=== PATIENT | male | born 1970 | race Caucasian/White ===

== ENCOUNTER → 2017-08-23 | Outpatient (CLI) | payer OTHER | LOC: M RAD 07:47 | DX: K31.84 Gastroparesis (principal) ==

== ENCOUNTER 2017-09-11 09:27 | Day surgery (SDC) | payer OTHER ==
[2017-09-11] MEDS ORDERED: LIDOCAINE 2% INJ 100 MG/5 ML SDV (FOR ANES.) As Ordered (09:30)
[2017-09-11] MEDS ORDERED: PROPOFOL 200 MG/20 ML VIAL As Ordered (09:30)
[2017-09-11] MEDS: NS 1,000 ML IV (09:45)
[2017-09-11] MEDS ORDERED: fentaNYL 100 MCG/2 ML INJECTION (J3010) As Ordered (09:58)
[2017-09-11 10:02] LABS: BEDSIDE GLUCOSE 225 MG/DL (70-105)
[2017-09-11] MEDS ORDERED: MIDAZOLAM INJ 2 MG/2 ML VIAL (J2250) As Ordered (10:13)
== END 2017-09-11 11:15 | disposition home or self-care (01) ==
LOC: M OPP 09:27
DX: K57.30 Diverticulosis of large intestine without perforation or abscess without bleeding (principal); K64.0 First degree hemorrhoids; R19.7 Diarrhea, unspecified; K22.8 Other specified diseases of esophagus; K31.89 Other diseases of stomach and duodenum; R11.2 Nausea with vomiting, unspecified; I10 Essential (primary) hypertension; E78.00 Pure hypercholesterolemia, unspecified; E11.9 Type 2 diabetes mellitus without complications; K31.84 Gastroparesis; Z79.82 Long term (current) use of aspirin; Z79.4 Long term (current) use of insulin; Z79.899 Other long term (current) drug therapy
CPT/HCPCS: 45380

== ENCOUNTER 2018-01-15 07:03 | Day surgery (SDC) | payer OTHER ==
[~2018-01-15 07:03] MED LIST: ACETAMINOPHEN 325 MG TAB PO; PHENYLEPHRINE HCL 10 % OPHTH. SOL 5ML OD
[2018-01-15] MEDS: TROPICAMIDE 1% OPHTH SOLN 2ML OD (07:27)
[2018-01-15] MEDS: PHENYLEPHRINE 2.5% OPHTH SOL 2ML OD (07:27)
[2018-01-15] MEDS: CYCLOPENTOLATE 2% OPHTH SOLN 2ML BTL OD (07:27)
[2018-01-15] MEDS: OFLOXACIN 0.3 % (OCUFLOX) OPTH SOL 5ML OD (07:27)
[2018-01-15] MEDS: LIDOCAINE 3.5 % 1ML OPHTH TOPICAL GEL OU (07:28)
[2018-01-15 07:29] LABS: BEDSIDE GLUCOSE 157 MG/DL (70-105)
[2018-01-15] MEDS ORDERED: fentaNYL 100 MCG/2 ML INJECTION (J3010) As Ordered (07:54)
[2018-01-15] MEDS ORDERED: MIDAZOLAM INJ 2 MG/2 ML VIAL (J2250) As Ordered (07:54)
[2018-01-15] MEDS: POVIDONE-IODINE 5% OPHTH PREP SOL 30ML As Ordered (08:18)
[2018-01-15] MEDS: LIDOCAINE 1% SDV 5 ML VIAL As Ordered (08:18)
[2018-01-15] MEDS: HEALON DUET (HEALON 10MG/ML 0.55ML & HEALON ENDOCOAT 30MG/ML 0.85ML) As Ordered (08:20)
[2018-01-15] MEDS: MOXIFLOXACIN IN BSS 0.25MG/0.25ML INTRACAMERAL INJ (OR EYE ONLY)(J2280) As Ordered (08:20)
[2018-01-15] MEDS: TRIAMCINOLONE PRES FR 40 MG/ML 1ML(TRIESENCE)(OR EYE ONLY)(J3300 PER 1MG) As Ordered (08:20)
[2018-01-15] MEDS: BSS with VANC/TOB/EPI for EYE CASES IR (08:21)
[2018-01-15] MEDS ORDERED: LR 1,000 ML IV (08:45)
[2018-01-15] MEDS ORDERED: fentaNYL 100 MCG/2 ML INJECTION (J3010) IV (08:45)
[2018-01-15] MEDS ORDERED: TRIMETHOBENZAMIDE 300 MG CAP PO (08:45)
[2018-01-15] MEDS ORDERED: ONDANSETRON 4MG/2ML VIAL (J2405) IV (08:45)
[2018-01-15] MEDS: AcetaZOLAMIDE 500 MG ER CAP PO (08:56)
== END 2018-01-15 09:12 | disposition home or self-care (01) ==
LOC: M SDC 07:03
DX: H25.9 Unspecified age-related cataract (principal); E10.9 Type 1 diabetes mellitus without complications; Z79.4 Long term (current) use of insulin; Z79.899 Other long term (current) drug therapy; K21.9 Gastro-esophageal reflux disease without esophagitis; Z87.891 Personal history of nicotine dependence
CPT/HCPCS: 66984

== ENCOUNTER → 2018-02-20 | Outpatient (REF) | payer OTHER ==
[2018-02-20 12:45] LABS: TOTAL 25(OH) VITAMIN D 11.7 NG/ML (30.0-100.0)
== END ==
LOC: M LAB REF 11:57
DX: S92.345A Nondisplaced fracture of fourth metatarsal bone, left foot, initial encounter for closed fracture (principal); W18.30XA Fall on same level, unspecified, initial encounter; Y92.009 Unspecified place in unspecified non-institutional (private) residence as the place of occurrence of the external cause

== ENCOUNTER → 2018-06-23 | Outpatient (REF) | payer OTHER ==
[~2018-06-23] MED LIST changes: +/GLYB5TA PO; -ACETAMINOPHEN 325 MG TAB PO; +ADME100I SQ; +AMLO2.5T3 PO; +ASPI81TA21 PO; +ASPI81TA85 PO; +AUGM500T34 PO; +BASA100I SC; +CIPR500T89 PO; +FENO54TA2 PO; +FLAG500T PO; +FURO20TA2 PO; +GABA-843 PO; +GLUC500T PO; +IBUPPOW25 PO; +INSUHUMDS SC; +INSULANT SC; +INSULIN PEN SC; +INVO100T PO; +LISI-538 PO; +LISI1TAB25 OR; +LORTTAB2 PO; +LOSA25TA14 PO; +METO1TAB32 PO; +OMEP-221 PO; +PERCOCET OR; -PHENYLEPHRINE HCL 10 % OPHTH. SOL 5ML OD; +TYLE325T5 PO; +ZOCO20TA PO; +[UNRECOGNIZED DRUG - OTHER] PO
== END ==
LOC: M LABDRAW1 12:08
PROVIDERS: ATTEND Orthopaedic Surgery
DX: S92.345G Nondisplaced fracture of fourth metatarsal bone, left foot, subsequent encounter for fracture with delayed healing (principal); X58.XXXD Exposure to other specified factors, subsequent encounter; Y92.9 Unspecified place or not applicable

== ENCOUNTER 2018-07-14 08:20 | Day surgery (SDC) | payer OTHER ==
[~2018-07-14] VITALS: Ht 180.3 cm; Wt 127.9 kg
[~2018-07-14 08:20] MED LIST changes: +ACETAMINOPHEN 325 MG TAB PO PRN; +BSS with VANC/TOB/EPI for EYE CASES IR ONE; +CYCLOPENTOLATE 2% OPHTH SOLN 2ML BTL OS ONE; +HEALON DUET PRO(HEALON 10MG/ML 0.55ML & HEALON ENDOCOAT 30MG/ML 0.85ML) As Ordered ONE; +LIDOCAINE 1% SDV 5 ML VIAL As Ordered ONE; +LIDOCAINE 3.5 % 1ML OPHTH TOPICAL GEL OU ONE; +MOXIFLOXACIN IN BSS 0.25MG/0.25ML INTRACAMERAL INJ (OR EYE ONLY)(J2280) As Ordered ONE; +OFLOXACIN 0.3 % (OCUFLOX) OPTH SOL 5ML OS ONE; +PHENYLEPHRINE 2.5% OPHTH SOL 2ML OS ONE; +PHENYLEPHRINE HCL 10 % OPHTH. SOL 5ML OS PRN; +POVIDONE-IODINE 5% OPHTH PREP SOL 30ML As Ordered ONE; +TRIAMCINOLONE PRES FR 40 MG/ML 1ML(TRIESENCE)(OR EYE ONLY)(J3300 PER 1MG) As Ordered ONE; +TROPICAMIDE 1% OPHTH SOLN 2ML OS ONE
[2018-07-14] MEDS ORDERED: fentaNYL 100 MCG/2 ML INJECTION (J3010) As Ordered ONE (08:44)
[2018-07-14] MEDS ORDERED: MIDAZOLAM INJ 2 MG/2 ML VIAL (J2250) As Ordered ONE (08:44)
[2018-07-14] MEDS ORDERED: LIDOCAINE 2% W/EPIN INJ 20ML **PRES FREE XX ONE (09:22)
[2018-07-14] MEDS ORDERED: fentaNYL 100 MCG/2 ML INJECTION (J3010) IV PRN (09:45)
[2018-07-14] MEDS ORDERED: NORCO, ANEXSIA 5/325MG TABLET (HYDROcodone/ACETAMINOPHEN) PO PRN (09:45)
[2018-07-14] MEDS ORDERED: TRIMETHOBENZAMIDE 300 MG CAP PO PRN (09:45)
[2018-07-14] MEDS ORDERED: AcetaZOLAMIDE 500 MG ER CAP PO ONE (09:45)
[2018-07-14] MEDS ORDERED: LR 1,000 ML IV SCH (09:45)
[2018-07-14 10:00] VITALS: BP 128/67
--- NOTE | 2018-07-15 16:13 | RO ---
DATE OF PROCEDURE: 07/14/2018 PREPROCEDURE DIAGNOSIS: Cataract left eye. POSTPROCEDURE DIAGNOSIS: Cataract left eye. PROCEDURE: Phacoemulsification with intraocular lens implantation with the help of Optiwave Refractive Analysis (ORA). Intraocular lens (IOL) power used was [id number], 19.5 diopters. SURGEON: Dee Oates MD NURSING SCHEDULER: None. ANESTHESIA: Local IV standby FINDINGS: Cataract of left eye. COMPLICATIONS: None. DESCRIPTION OF PROCEDURE: The patient was brought to the operating room and laid in supine position. A lid speculum was placed, and patient was brought under the femtosecond laser. After the satisfactory placement of the patient interface, primary incision, secondary incision, and arcuate incisions with lens fragmentation was done without any complication per plan. The patients interface was then removed and lid speculum removed. Patient was placed under the microscope. The eye was prepped and draped in a sterile fashion for ophthalmic surgery. Lid speculum was placed. The secondary incision was opened, and EndoCoat was injected into the anterior chamber. The temporal clear corneal incision was then opened and capsulorrhexis removed, followed by hydrodissection. This was followed by phacoemulsification of the lens within the capsular bag. Cortical material was then aspirated, and Healon was injected into the capsular bag. Intraocular lens was then placed. Excess Healon was aspirated. Wound was hydrated. The lid speculum was removed, and patient was returned to the recovery room in stable condition. ADDENDUM: After the cortical material was cleaned up and Healon was placed in the anterior chamber and capsular bag, intraocular pressure was checked; it was noted to be adequate, following which multiple ORA calculations were taken and intraocular lens power chosen.
== END 2018-07-14 10:13 | disposition home or self-care (01) ==
LOC: M SDC 08:20
PROVIDERS: ATTEND Ophthalmology
DX: H25.9 Unspecified age-related cataract (principal); I10 Essential (primary) hypertension; E78.5 Hyperlipidemia, unspecified; E11.9 Type 2 diabetes mellitus without complications; G47.30 Sleep apnea, unspecified; K21.9 Gastro-esophageal reflux disease without esophagitis; Z79.4 Long term (current) use of insulin; Z79.899 Other long term (current) drug therapy
CPT/HCPCS: 66984; 92015; J2250; J2280; J3010; J3300; V2632

== ENCOUNTER 2019-10-25 13:34 | Inpatient (IN) | payer OTHER ==
[~2019-10-25] VITALS: Ht 180.3 cm; Wt 101.8 kg
[~2019-10-25 13:34] MED LIST changes: -/GLYB5TA PO; -ACETAMINOPHEN 325 MG TAB PO PRN; -BSS with VANC/TOB/EPI for EYE CASES IR ONE; -CYCLOPENTOLATE 2% OPHTH SOLN 2ML BTL OS ONE; +GLYB1TAB29 PO; -HEALON DUET PRO(HEALON 10MG/ML 0.55ML & HEALON ENDOCOAT 30MG/ML 0.85ML) As Ordered ONE; -LIDOCAINE 1% SDV 5 ML VIAL As Ordered ONE; -LIDOCAINE 3.5 % 1ML OPHTH TOPICAL GEL OU ONE; -MOXIFLOXACIN IN BSS 0.25MG/0.25ML INTRACAMERAL INJ (OR EYE ONLY)(J2280) As Ordered ONE; -OFLOXACIN 0.3 % (OCUFLOX) OPTH SOL 5ML OS ONE; +OXYC1TAB23 OR; -PERCOCET OR; -PHENYLEPHRINE 2.5% OPHTH SOL 2ML OS ONE; -PHENYLEPHRINE HCL 10 % OPHTH. SOL 5ML OS PRN; -POVIDONE-IODINE 5% OPHTH PREP SOL 30ML As Ordered ONE; -TRIAMCINOLONE PRES FR 40 MG/ML 1ML(TRIESENCE)(OR EYE ONLY)(J3300 PER 1MG) As Ordered ONE; -TROPICAMIDE 1% OPHTH SOLN 2ML OS ONE
[2019-10-25 15:43] VITALS: BP 145/76
[2019-10-25] MEDS ORDERED: VANC1PLA6 IV (16:12)
[2019-10-25] MEDS ORDERED: FLINCHW2 PO (16:12)
[2019-10-25] MEDS ORDERED: GABA-843 PO (16:12)
[2019-10-25] MEDS ORDERED: FISH1000 PO (16:12)
[2019-10-25] MEDS ORDERED: CLIN1INJ IV (16:12)
[2019-10-25] MEDS ORDERED: CALC250T PO (16:12)
[2019-10-25] MEDS ORDERED: ZOSY3INJ2 IV (16:12)
[2019-10-25] MEDS ORDERED: ATOR40TA75 PO (16:12)
--- NOTE | 2019-10-25 16:15 | HPEPDOC ---
[facility] Medical History & Physical Date of Admission Oct 25, 2019 Date of Service: Oct 25, 2019 Attending Physician: Sade Lazaro MD History and Physical CHIEF COMPLAINT: Lower extremity swelling HISTORY OF PRESENT ILLNESS: Patient is a 49 y/o M with PMH of DM type II, HTN, HLD who was transferred to [facility] from [facility] for right lower ext cellulitis, r/o DVT and JESSICA on CKD Stage III-IV. He stepped on two nails 10/22/19, one on his right foot and another on the left foot. He tried to clean it out at home without much im provement. At home patient states to have had a fever over 100 F, chills, pain was 9/10 on pain scale. Patient admits that the nail in the right foot went in almost 1/2 inch. Swelling and redness of right foot increased and the area of his pain changed from only being localized from the bottom of the right foot now moving/shooting up to the right groin. Pain increased to constant and at times was worse around his right knee. Denies nausea, vomiting, chest pain, shortness of breath, lightheadedness or dizziness, decreased appetite. Due to worsening symptoms, the patient to the emergency room at [facility] for evaluation. In ER, patients VS were stable. WBC 16.2, Cr 3.5. He was noted to have right foot swelling with at times, severe tenderness of palpation of the right calf and left knee. The transferring facilitys [facility] did not have ultrasound capability to r/o DVT. Also with worsening renal function, concern was perhaps needing nephrology consultation. He was given dose of Clindamycin and Zosyn vinny ng with some IVFs. Patient was given tetanus shot today also. He was transferred here for further treatment of right foot cellulitis, concern for acute on chronic kidney injury. Upon evaluation here, patent's swelling as localized only to right foot, more medial involving the 1st three digits, dorsum. There was a well healed, scabbed wound on the bottom of the right foot, nonsuppurative. He was tender to touch on this area of the foot and up to the right groin; however, there was no increased swelling, redness or streaking noted on the right leg. There was also no edema. He was comfortable and VS were stable. All labs and paperwork were reviewed upon admission. ROS: Negative except for what is mentioned above. PAST MEDICAL HISTORY: 1. DM type II, states it has resolved after gastric bypass surgery 2. HTN 3. HLD 4. Peripheral neuropathy 5. GERD hx 6. Hx of collapsed lung PAST SURGICAL HISTORY: 1. Laproscopic appendectomy 06/2012 2. cataract surgery 3. Gastric bypass surgery 4. Colostomy placement and reversal FAMILY HISTORY: Father: blood clots in legs. Alive Mother: DM type II, morbid obesity SOCIAL HISTORY: prior smoker for 25 years, 3 PPD, quit 4 years ago. Social alcohol use, denies illicit drug use. [place] in the local area. Full Code. PCP- Patricia Andino, no new PCP since she's left. Lives with . [employer]- Dr. Harris ALLERGIES: Please see below. HOME MEDICATIONS: Please see below. PHYSICAL EXAMINATION: CONSTITUTIONAL: No acute distress, resting comfortably, AAO x 3 EYES: PERRLA, EOM intact HENT, MOUTH: Normocephalic, atraumatic, moist mucous membranes, NECK: SUPPLE, no JVD, no lymphadenopathy, no carotid bruit CV: Regular rate and rhythm, S1S2 normal, no murmurs/rubs/gallops RESPIRATORY: Clear to auscultation bilaterally, no rales/rhonchi/wheezes GI: BS positive in 4 quadrants, soft, nontender, nondistended, no rebound or guarding, no organomegaly : Deferred MUSCULOSKELETAL: Normal ROM. No cyanosis, clubbing, swelling, joint deformity. INTEGUMENTARY: Swelling as localized only to right foot, erythema +: more medial involving the 1st three digits, dorsum. Well healed, scabbed wound on the bottom of the right foot, nonsuppurative. Tender to touch on this area of the foot and up to the right groin; however, there was no increased swelling, redness or streaking noted on the right leg. There was also no edema of leg above the foot. Well healed scabbed area on bottom of left foot where patient had stepped on other nail. NEUROLOGIC: Cranial Nerves II-XII are intact, no focal deficits PSYCHIATRIC: Mood and affect are normal LABORATORY DATA: Please see below IMAGING: F/u US lower ext ASSESSMENT: 49 y/o M with PMH of HTN, DM type II, HLD, morbid obesity admitted for further treatment of right foot cellulitis , acute on chronic kidney injury? (baseline Cr unknown). PLAN: 1. Right foot cellulitis s/p stepping on nail 10/22/19 - WBC 16.2, afebrile -Tetanus given today in ER -States right leg pain started after cellulitis, tender to touch. F/u ultrasound of RLE to r/o DVT -Starting on clindamycin IV, probiotic, tylenol PRN -PT/OT 2. 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 -Cr 3.5, baseline unknown at this time. -Requesting nephrology notes from Dr. Harris, district representative. -C/w IVFs at 100 cc/hr, avoid nephrotoxic meds. -F/u AM labs 3. Peripheral neuropathy -C/w gabapentin. 4. HLD -C/w statin 5. Hx of DM type II -States that since gastric bypass, this has not been a problem -Not on home medications. -F/u HbA1c, lipid panel -BS 153 on labs -ISS, AC/HS finger sticks 6. GERD. -not on home tx 7. DVT px. -Enoxaparin DISPOSITION: Admitted under inpatient status for treatment above. Plan is discharge home when medically improved. Home Medications Scheduled Atorvastatin Calcium (Atorvastatin Calcium) 40 Mg Tablet, 40 MG PO QHS Calcium Citrate (Calcium Citrate) 250 Mg Tablet, 500 MG PO QHS Clindamycin in 0.9 % Sod Chlor (Clindamycin 900 mg/50 ml-Ns) 900 Mg/50 Ml Piggy back, 900 MG IV ONCE RECEIVED AT [facility] Gabapentin (Gabapentin) 300 Mg Capsule, 600 MG PO QHS Multivitamin (Flintstones) 1 Each Tab.chew, 2 CHEW PO QHS [place]-3 Fatty Acids/Fish Oil (Fish Oil 1,000 mg Capsule) 1 Each Capsule, 2,000 MG PO QHS Piperacillin Sodium/Tazobactam (Zosyn 3.375 Gram Vial) 3.375 Gm Vial, 3.375 MG IV ONCE RECEIVED AT [facility] Vancomycin/0.9 % Sod Chloride (Vanco 1 Gram/250 ml-0.9% NaCl) 1 Gm/250 Ml Plast..bag, 1 GM IV ONCE RECEIVED AT [facility] Allergies Coded Allergies: No Known Allergies (Unverified , 07/07/18) A-FIB/CHADSVASC A-FIB History Current/History of A-Fib/PAF?: No Current PO Anticoag Therapy: No Age/Risk Factor Scoring CHADSVASC: CHADSVASC Response (Comments) Value Age Risk Factor Age < 65 years old 0 Hx of CHF No 0 Hx of HTN Yes 1 Hx of Stroke/TIA/or VTE No 0 Hx of Diabetes Yes 1 Hx of Vascular Disease No 0 Total 2 Treatment Treatment ordered: Other Other anticoagulant ordered: enoxaparin Sade Lazaro MD Oct 25, 2019 16:15
[2019-10-25] MEDS ORDERED: GLUCAGON INJ 1MG VIAL SC PRN (17:45)
[2019-10-25] MEDS ORDERED: GLUCOSE 4GM CHEW TABLET PO PRN (17:45)
[2019-10-25] MEDS ORDERED: DEXTROSE 50% 50 ML SYRINGE IV PRN (17:45)
[2019-10-25] MEDS: NS 1,000 ML IV SCH (18:06)
[2019-10-25] MEDS: LACTOBACILLUS ACIDOPHILUS CAP (BACID) PO SCH (18:10)
[2019-10-25] MEDS: CLINDAMYCIN 600 MG in IV 1 EA IV SCH (18:10)
--- NOTE | 2019-10-25 18:18 | REPVR ---
PROCEDURE INFORMATION: Exam: US Duplex Right Lower Extremity Veins, Limited Exam date and time: 10/25/2019 6:02 PM Age: 49 years old Clinical indication: Pain; Leg, lower and foot; Right; Additional info: Right foot swelling and left leg pain R/O dvt TECHNIQUE: Imaging protocol: Real-time Duplex ultrasound of the Right Lower Extremity with 2-D diehl scale, color Doppler flow and spectral waveform analysis with image documentation. Limited exam was focused on the right lower extremity veins. COMPARISON: No relevant prior studies available. FINDINGS: Right deep veins: Unremarkable. The common femoral, femoral, proximal profunda femoral and popliteal veins are patent without thrombus. Normal Doppler waveforms. Normal compressibility and/or augmentation response. Right superficial veins: Unremarkable. Saphenofemoral junction is patent without thrombus. Soft tissues: Unremarkable. IMPRESSION: No sonographic evidence of deep vein thrombosis. Electronically signed by: Luz Maria Beal On 10/25/2019 18:18:04 PM
[2019-10-25] MEDS: ATORVASTATIN 20 MG TAB PO SCH (20:58)
[2019-10-25] MEDS: ACETAMINOPHEN TAB 650MG DOSE (2X325MG) PO PRN (20:59)
[2019-10-25] MEDS: GABAPENTIN 300 MG CAP PO SCH (20:59)
[2019-10-25] MEDS: HumaLOG INSULIN (NovoLOG) PER UNIT SC SCH (21:00)
[2019-10-25 22:00] VITALS: BP 138/66
[2019-10-26] MEDS: CLINDAMYCIN 600 MG in IV 1 EA IV SCH ×4 (00:46→18:19)
[2019-10-26 06:00] VITALS: BP 153/79
[2019-10-26] MEDS: NS 1,000 ML IV SCH ×2 (06:03→12:26)
[2019-10-26 07:03] LABS: HEMATOCRIT 30.9 % (42.0-52.0); HEMOGLOBIN 9.7 g/dl (13.5-17.5); MEAN CORPUSCULAR HEMOGLOBIN 28.4 pg (27.0-33.0); MEAN CORPUSCULAR HGB CONC 31.4 g/dl (32.0-36.5); MEAN CORPUSCULAR VOLUME 90.4 fl (80.0-96.0); PLATELET COUNT, AUTOMATED 253 10^3/uL (150-450); RED BLOOD COUNT 3.42 10^6/uL (4.30-6.10); WHITE BLOOD COUNT 13.9 10^3/uL (4.0-10.0)
[2019-10-26 07:16] LABS: HEMOGLOBIN A1c 5.2 %
[2019-10-26 07:23] LABS: ALBUMIN 1.7 GM/DL (3.2-5.2); BILIRUBIN,TOTAL 0.4 MG/DL (0.2-1.0); CHOLESTEROL RISK RATIO 3.825 (<5); CREATININE FOR GFR 3.38 MG/DL (0.70-1.30); GLOMERULAR FILTRATION RATE 20.8 (>60); POTASSIUM SERUM 4.3 MEQ/L (3.5-5.1); TOTAL PROTEIN 5.5 GM/DL (6.4-8.2)
[2019-10-26] MEDS: HumaLOG INSULIN (NovoLOG) PER UNIT SC SCH ×4 (07:30→21:00)
[2019-10-26] MEDS: LACTOBACILLUS ACIDOPHILUS CAP (BACID) PO SCH ×2 (08:11→18:19)
[2019-10-26] MEDS: ENOXAPARIN 40MG/0.4ML SYRINGE (J1650 PER 10MG) SC SCH (08:12)
[2019-10-26 14:00] VITALS: BP 151/73
[2019-10-26] MEDS: GABAPENTIN 300 MG CAP PO SCH (21:25)
[2019-10-26] MEDS: ATORVASTATIN 20 MG TAB PO SCH (21:25)
[2019-10-26] MEDS: ACETAMINOPHEN TAB 650MG DOSE (2X325MG) PO PRN (21:25)
[2019-10-26 22:00] VITALS: BP 140/65
[2019-10-27] MEDS: NS 1,000 ML IV SCH ×2 (00:17→08:16)
[2019-10-27] MEDS: CLINDAMYCIN 600 MG in IV 1 EA IV SCH ×2 (00:17→06:12)
[2019-10-27 06:00] VITALS: BP 136/73
[2019-10-27 06:09] LABS: BASO # 0.1 10^3/uL (0.0-0.2); BASO % 0.5 % (0.0-1.0); EOS # 0.1 10^3/uL (0.0-0.5); EOS % 0.6 % (0.0-3.0); HEMATOCRIT 26.5 % (42.0-52.0); HEMOGLOBIN 8.3 g/dl (13.5-17.5); LYMPH # 1.6 10^3/uL (1.5-5.0); LYMPH % 12.8 % (24.0-44.0); MEAN CORPUSCULAR HEMOGLOBIN 28.3 pg (27.0-33.0); MEAN CORPUSCULAR HGB CONC 31.3 g/dl (32.0-36.5); MEAN CORPUSCULAR VOLUME 90.4 fl (80.0-96.0); MONO # 1.3 10^3/uL (0.0-0.8); MONO % 10.5 % (0.0-5.0); NEUTROPHILS # 9.6 10^3/uL (1.5-8.5); NEUTROPHILS % 75.2 % (36.0-66.0); PLATELET COUNT, AUTOMATED 265 10^3/uL (150-450); RED BLOOD COUNT 2.93 10^6/uL (4.30-6.10); WHITE BLOOD COUNT 12.7 10^3/uL (4.0-10.0)
[2019-10-27 06:37] LABS: BLOOD UREA NITROGEN 37 MG/DL (7-18); CALCIUM LEVEL 7.9 MG/DL (8.5-10.1); CARBON DIOXIDE LEVEL 20 MEQ/L (21-32); CHLORIDE LEVEL 111 MEQ/L (98-107); CREATININE FOR GFR 3.21 MG/DL (0.70-1.30); GLOMERULAR FILTRATION RATE 22.1 (>60); GLUCOSE, FASTING 106 MG/DL (70-100); POTASSIUM SERUM 4.1 MEQ/L (3.5-5.1); SODIUM LEVEL 141 MEQ/L (136-145)
--- NOTE | 2019-10-27 06:41 | IPN ---
DATE: 10/26/2019 He is a 49-year-old male with a history of hypertension, diabetes type 2, hypercholesterolemia and chronic kidney disease who was transferred from [facility] for further treatment of right foot cellulitis, acute on chronic kidney injury. 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 Goetz, and it says that his creatinine baseline is 2.5-2.7. On laboratory studies here, white count was up slightly at 13.9, hemoglobin 9.7, hematocrit 30.9, sodium 143, potassium 4.3, chloride 112, CO2 22, anion gap 9, BUN 41, creatinine 3.3. Hemoglobin A1c 5.2. Triglycerides were 136, total cholesterol 153, LDL 86. He had a vascular ultrasound which showed no evidence of deep vein thrombosis on his right leg. He is receiving IV fluids. Will recheck his BUN, creatinine and electrolytes in the a.m. If not improving, may consider nephrology consult. Tmax today was 99.8. The redness is improving. Will continue clindamycin IV. OBJECTIVE: Blood pressure 150/70. Pulse 95. Respirations 18. Oxygen saturation 97% on room air. Temperature 99. The patient is alert and oriented times three. Pupils equal and react to light. Extraocular movements intact. Cornea and sclera clear. Conjunctiva normal. No facial asymmetry. Pharynx, tongue and gums pink and moist. Tongue is midline. Neck is supple, without lymphadenopathy. No thyromegaly. No goiter. Pulses without bruit. Chest clear to auscultation, without wheeze or retraction. Heart is regular. Abdomen benign. Bowel sounds positive. Genitourinary ()/Rectal: Not done. Extremities: Right foot and the first three digits are much improved. The redness is lessened. No drainage noted. Peripheral pulses equal and palpable bilaterally. IMPRESSION AND PLAN: 1. Right foot cellulitis. White count had been 16.2, it is improved to 13. Leg pain is much improved. Ultrasound on lower extremity negative for deep vein thrombosis. Continue clindamycin, probiotic and Tylenol. 2. Acute on chronic kidney disease. Baseline is 2.5-2.7. Will continue IV fluids. Followup labs in the a.m. If not improving, may consider nephrology consult. 3. Peripheral neuropathy. Continue gabapentin. 4. Hypercholesterolemia. Continue with statin. 5. History of diabetes type 2. Diet controlled since bypass. Hemoglobin A1c is 5.2. 6. History of gastroesophageal reflux disease. Not on any medications at home for this. No current complaints. 7. Deep vein thrombosis. The patient is on Lovenox. Continue current plan of care.
[2019-10-27] MEDS: LACTOBACILLUS ACIDOPHILUS CAP (BACID) PO SCH ×2 (08:15→17:41)
[2019-10-27] MEDS: ENOXAPARIN 40MG/0.4ML SYRINGE (J1650 PER 10MG) SC SCH ×2 (08:16→08:17)
[2019-10-27] MEDS: HumaLOG INSULIN (NovoLOG) PER UNIT SC SCH ×4 (08:16→21:00)
[2019-10-27 08:58] LABS: FERRITIN 769 NG/ML (26-388); IRON (FE) 8 UG/DL (65-175); PERCENT SATURATION 7.6 % (19.7-50.0); TOTAL IRON BINDING CAPACITY 105 UG/DL (250-450)
[2019-10-27 09:04] LABS: VITAMIN B12 LEVEL > 2000 PG/ML
[2019-10-27 09:05] LABS: FOLATE 12.9 NG/ML
[2019-10-27] MEDS: PIPERACILLIN/TAZOBACTAM SOD 2.25 GM in D5W MINI-BAG PLUS 50 ML IV SCH ×3 (10:40→21:41)
[2019-10-27] MEDS ORDERED: VANCOMYCIN HCL 1,000 MG, VIAL MATE ADAPTER 1 EACH in D5W 250 ML IV ONE ×2 (11:00→12:00)
[2019-10-27 14:00] VITALS: BP 170/68
[2019-10-27] MEDS: ACETAMINOPHEN TAB 650MG DOSE (2X325MG) PO PRN ×2 (15:25→21:40)
--- NOTE | 2019-10-27 16:23 | IPNPDOC ---
Text Note Date of Service The patient was seen on 10/27/19. NOTE SUBJECTIVE: Patient spiked a fever this afternoon 101.2, Pus draining from the wound on the right foot. Does not have much tenderness onteh foot but has bad neuropathy. he inflammation is extensding to the dorsum of the foot. PHYSICAL EXAMINATION: CONSTITUTIONAL: No acute distress, resting comfortably, AAO x 3 EYES: PERRLA, EOM intact HENT, MOUTH: Normocephalic, atraumatic, moist mucous membranes, NECK: SUPPLE, no JVD, no lymphadenopathy, no carotid bruit CV: Regular rate and rhythm, S1S2 normal, no murmurs/rubs/gallops RESPIRATORY: Clear to auscultation bilaterally, no rales/rhonchi/wheezes GI: BS positive in 4 quadrants, soft, nontender, nondistended, no rebound or guarding, no organomegaly : Deferred MUSCULOSKELETAL: Normal ROM. No cyanosis, clubbing, swelling, joint deformity. INTEGUMENTARY: Swelling as localized only to right foot, erythema +: more medial involving the 1st three digits, dorsum. Wound on the planter aspect draining pus from the right foot. Well healed scabbed wound on bottom of left foot where patient had stepped on other nail. NEUROLOGIC: Cranial Nerves II-XII are intact, no focal deficits PSYCHIATRIC: Mood and affect are normal LABORATORY DATA: Please see below IMAGING: Doppler Lower extremity: negative for DVT. ASSESSMENT and PLAN: 49 y/o M with PMH of HTN, DM type II, HLD, morbid obesity s/p bypass surgery admitted for further treatment of right foot cellulitis , acute on chronic kidney injury baseline creatinine of 2.5 to 2.7 PLAN: Right foot cellulitis and abscess s/p stepping on nail 10/22/19 Vanco and Zosyn Rule out OM will get foot xray Podiatry consult MRSA pcr positive Wound culture sent. Acute on chronic kidney disease Stage baseline creatinine 2.5 to 2.7 probably worse due to infection will continue to monitor. Peripheral neuropathy C/w gabapentin. HLD C/w statin Hx of DM type II States that since gastric bypass, this has not been a problem GERD. not on home tx Anemia probably from CKD iron studies, vit B12 and Folate OK. DVT prophylaxis heparin VS,Fishbone, I+O VS, Fishbone, I+O Laboratory Tests 10/27/19 05:45 Vital Signs Date Time Temp Pulse Resp B/P (MAP) Pulse Ox O2 Delivery O2 Flow Rate FiO2 10/27/19 14:00 101.4 93 19 170/68 (102) 97 Room Air I&O- Last 24 Hours up to 6 AM 10/27/19 06:00 Intake Total 4320 ml Output Total 2550 ml Balance 1770 ml JANET COLEY MD Oct 27, 2019 16:23
--- NOTE | 2019-10-27 20:16 | CR ---
DATE OF CONSULTATION: 10/27/2019 REASON FOR CONSULTATION: Foot puncture wound. Kirby Velasquez is a pleasant 49-year-old male who was admitted to the hospital. He was transferred from [facility] on 10/25/2019. He states he stepped on two nails on 10/22/2019 on both feet. He tried cleaning them at home but had worsening pain and redness for which he was admitted. PAST MEDICAL HISTORY: Significant for diabetes with peripheral neuropathy, hypertension, hyperlipidemia, gastroesophageal reflux disease (GERD). PAST SURGICAL HISTORY: Includes laparoscopic appendectomy, cataract surgery, bypass surgery and colostomy patient with reversal. FAMILY HISTORY: Includes diabetes. SOCIAL HISTORY: Former smoker Social alcohol use. ALLERGIES: No known drug allergies. REVIEW OF SYSTEMS: Positive for fevers. VITAL SIGNS: Reviewed. He was febrile, maximum temperature (T max) 101.4 on 10/25/2019. His most recent temperature was 99.5. LABS: Labs are reviewed. White blood cell count is 12.7; it was 13.9 on admission. CRP is 13.2. LOWER EXTREMITY EXAMINATION: On the left foot, there is a scab on the plantar left arch without erythema or edema. On the right foot, under the first metatarsal head, there is a probing ulceration with purulent drainage. There is local erythema surrounding the hallux and first metatarsophalangeal joint. ASSESSMENT: A 49-year-old diabetic male with puncture wound, cellulitis, abscess. PLAN: Bedside incision and drainage performed using a #11 blade. A stab incision was made at the puncture wound site. Purulence was expressed. It was flushed out with 50 mL of saline irrigation. He is to have packing changed twice daily. Culture swab had been taken. Await culture results. He is currently on vancomycin and Zosyn. Will follow.
[2019-10-27] MEDS: ATORVASTATIN 20 MG TAB PO SCH (21:40)
[2019-10-27] MEDS: GABAPENTIN 300 MG CAP PO SCH (21:40)
[2019-10-27 22:00] VITALS: BP 136/70
[2019-10-28 04:33] VITALS: BP 136/72
[2019-10-28] MEDS: PIPERACILLIN/TAZOBACTAM SOD 2.25 GM in D5W MINI-BAG PLUS 50 ML IV SCH ×4 (05:03→23:56)
[2019-10-28 07:04] LABS: BASO # 0.1 10^3/uL (0.0-0.2); BASO % 0.6 % (0.0-1.0); EOS # 0.2 10^3/uL (0.0-0.5); EOS % 1.2 % (0.0-3.0); HEMATOCRIT 27.9 % (42.0-52.0); HEMOGLOBIN 8.9 g/dl (13.5-17.5); LYMPH # 1.7 10^3/uL (1.5-5.0); LYMPH % 12.9 % (24.0-44.0); MEAN CORPUSCULAR HEMOGLOBIN 28.3 pg (27.0-33.0); MEAN CORPUSCULAR HGB CONC 31.9 g/dl (32.0-36.5); MEAN CORPUSCULAR VOLUME 88.9 fl (80.0-96.0); MONO # 1.3 10^3/uL (0.0-0.8); MONO % 9.7 % (0.0-5.0); NEUTROPHILS % 75.1 % (36.0-66.0); PLATELET COUNT, AUTOMATED 290 10^3/uL (150-450); RED BLOOD COUNT 3.14 10^6/uL (4.30-6.10); WHITE BLOOD COUNT 13.3 10^3/uL (4.0-10.0)
[2019-10-28 07:24] LABS: C REACTIVE PROTEIN QUANTITATIV 13.8 MG/DL (0.00-0.30); CALCIUM LEVEL 7.7 MG/DL (8.5-10.1); CREATININE FOR GFR 3.4 MG/DL (0.70-1.30); GLOMERULAR FILTRATION RATE 20.7 (>60)
--- NOTE | 2019-10-28 07:28 | REP ---
RIGHT FOOT, FOUR VIEWS: Four views of right foot performed. There is a fracture at the base of the 5th proximal phalanx. This extends into the metatarsophalangeal joint. No osseous destruction is seen. There is mild posterior and inferior calcaneal spurring as well as mild spurring at the dorsal aspect of the talus and navicular bone. Electronically Signed by Walter Lacey MD 10/29/2019 09:17 A
[2019-10-28] MEDS: HumaLOG INSULIN (NovoLOG) PER UNIT SC SCH ×4 (07:30→20:56)
[2019-10-28] MEDS ORDERED: VANCOMYCIN HCL 750 MG, VIAL MATE ADAPTER 1 EACH in D5W 250 ML IV SCH ×2 (08:00→09:00)
[2019-10-28] MEDS: ENOXAPARIN 40MG/0.4ML SYRINGE (J1650 PER 10MG) SC SCH (08:12)
[2019-10-28] MEDS: LACTOBACILLUS ACIDOPHILUS CAP (BACID) PO SCH ×2 (08:12→17:08)
[2019-10-28 08:25] LABS: VANCOMYCIN RANDOM 5.7 UG/ML
[2019-10-28] MEDS: VANCOMYCIN HCL 750 MG, VIAL MATE ADAPTER 1 EACH in D5W 250 ML IV SCH ×2 (08:57→10:30)
--- NOTE | 2019-10-28 10:31 | IPNPDOC ---
Text Note Date of Service The patient was seen on 10/28/19. NOTE SUBJECTIVE: Patient spiked a fever yesterday afternoon 101.2, had incision and drainage done at bedside by Podiatry. wound has been packed. No new complaints this morning. pain is better. Sugars are controlled. PHYSICAL EXAMINATION: CONSTITUTIONAL: No acute distress, resting comfortably, AAO x 3 EYES: PERRLA, EOM intact HENT, MOUTH: Normocephalic, atraumatic, moist mucous membranes, NECK: SUPPLE, no JVD, no lymphadenopathy, no carotid bruit CV: Regular rate and rhythm, S1S2 normal, no murmurs/rubs/gallops RESPIRATORY: Clear to auscultation bilaterally, no rales/rhonchi/wheezes GI: BS positive in 4 quadrants, soft, nontender, nondistended, no rebound or guarding, no organomegaly : Deferred MUSCULOSKELETAL: Normal ROM. No cyanosis, clubbing, swelling, joint deformity. INTEGUMENTARY: Swelling as localized only to right foot, erythema +: more medial involving the 1st three digits, dorsum. Wound on the planter aspect draining pus from the right foot. Well healed scabbed wound on bottom of left foot where patient had stepped on other nail. NEUROLOGIC: Cranial Nerves II-XII are intact, no focal deficits PSYCHIATRIC: Mood and affect are normal LABORATORY DATA: Please see below IMAGING: Doppler Lower extremity: negative for DVT. ASSESSMENT and PLAN: 49 y/o M with PMH of HTN, DM type II, HLD, morbid obesity s/p bypass surgery admitted for further treatment of right foot cellulitis , acute on chronic kidney injury baseline creatinine of 2.5 to 2.7 PLAN: Right foot cellulitis and abscess s/p stepping on nail 10/22/19 Deanao and Comfort Rule out OM Had bedside I&D on 10/27/19 Podiatry consult appreciated MRSA pcr positive Wound culture sent. Xray foot shows There is a fracture at the base of the 5th proximal phalanx. This involves the metatarsophalangeal joint. Acute on chronic kidney disease Stage stage 3 to 4. baseline creatinine 2.5 to 2.7 probably worse due to infection, Now creatinine is 3.4 will continue to monitor. Peripheral neuropathy C/w gabapentin. HLD C/w statin Hx of DM type II States that since gastric bypass, this has not been a problem GERD. not on home tx Anemia probably from CKD iron studies, vit B12 and Folate OK. DVT prophylaxis heparin VS,Fishbone, I+O VS, Fishbone, I+O Vital Signs Date Time Temp Pulse Resp B/P (MAP) Pulse Ox O2 Delivery O2 Flow Rate FiO2 10/28/19 04:33 97.9 72 18 136/72 (93) 98 Room Air I&O- Last 24 Hours up to 6 AM 10/28/19 06:00 Intake Total 1850 ml Output Total 2600 ml Balance -750 ml JANET COLEY MD Oct 28, 2019 06:48
[2019-10-28] MEDS ORDERED: VANCOMYCIN HCL 500 MG in D5W MINI-BAG PLUS 100 ML IV SCH (12:00)
[2019-10-28] MEDS ORDERED: VANCOMYCIN HCL 1,000 MG, VIAL MATE ADAPTER 1 EACH in D5W 250 ML IV SCH (21:00)
[2019-10-28] MEDS: ATORVASTATIN 20 MG TAB PO SCH (21:09)
[2019-10-28] MEDS: GABAPENTIN 300 MG CAP PO SCH (21:09)
[2019-10-28 23:02] VITALS: BP 148/79
[2019-10-29] MEDS: PIPERACILLIN/TAZOBACTAM SOD 2.25 GM in D5W MINI-BAG PLUS 50 ML IV SCH ×4 (05:39→22:35)
[2019-10-29 06:00] VITALS: BP 131/75
[2019-10-29 06:59] LABS: BASO # 0.1 10^3/uL (0.0-0.2); BASO % 0.7 % (0.0-1.0); EOS # 0.3 10^3/uL (0.0-0.5); EOS % 2.3 % (0.0-3.0); HEMATOCRIT 27.3 % (42.0-52.0); HEMOGLOBIN 8.7 g/dl (13.5-17.5); LYMPH # 2.2 10^3/uL (1.5-5.0); LYMPH % 16.9 % (24.0-44.0); MEAN CORPUSCULAR HEMOGLOBIN 28.3 pg (27.0-33.0); MEAN CORPUSCULAR HGB CONC 31.9 g/dl (32.0-36.5); MEAN CORPUSCULAR VOLUME 88.9 fl (80.0-96.0); MONO # 1.2 10^3/uL (0.0-0.8); MONO % 9.2 % (0.0-5.0); PLATELET COUNT, AUTOMATED 335 10^3/uL (150-450); RED BLOOD COUNT 3.07 10^6/uL (4.30-6.10); WHITE BLOOD COUNT 12.9 10^3/uL (4.0-10.0)
[2019-10-29 07:29] LABS: CALCIUM LEVEL 8.2 MG/DL (8.5-10.1); CREATININE FOR GFR 3.36 MG/DL (0.70-1.30); POTASSIUM SERUM 3.9 MEQ/L (3.5-5.1)
[2019-10-29] MEDS: HumaLOG INSULIN (NovoLOG) PER UNIT SC SCH ×4 (07:30→20:19)
--- NOTE | 2019-10-29 08:32 | IPN ---
DATE: 10/28/2019 The patient is seen and examined. Denies overnight complaints. Vitals are reviewed. He had a fever of 101.4 yesterday. His most recent temperature is 97.9. Labs are reviewed. White blood cell count is elevated at 13.3. CRP is elevated at 13.8. Lower Extremity Examination: There is some persisting erythema and edema with persisting purulent drainage from the right foot plantar wound. There is some blistering of the dorsal aspect of the hallux. ASSESSMENT: 49-year-old male with cellulitis and abscess right foot status post puncture wound. PLAN: Continue packing changes. Will plan to bring him to the operating room for repeat incision and drainage tomorrow. He should be nothing by mouth (n.p.o.) after 0800.
[2019-10-29] MEDS: ENOXAPARIN 40MG/0.4ML SYRINGE (J1650 PER 10MG) SC SCH (09:00)
[2019-10-29] MEDS: LACTOBACILLUS ACIDOPHILUS CAP (BACID) PO SCH ×2 (09:09→18:52)
[2019-10-29] MEDS: FERROUS GLUCONATE 324 MG TAB PO SCH (11:46)
[2019-10-29] MEDS: CALCIUM/VITAMIN D 500 MG TAB PO SCH ×2 (12:30→20:19)
[2019-10-29] MEDS: SODIUM BICARBONATE 325 MG TAB PO SCH ×2 (12:51→20:19)
[2019-10-29 12:56] LABS: PTH INTACT 158.9 PG/ML (18.5-88.0)
--- NOTE | 2019-10-29 13:28 | IPNPDOC ---
Text Note Date of Service The patient was seen on 10/29/19. NOTE SUBJECTIVE: No fever or chills, Culture from the wound growing MSSA so vancomy mari stopped. Going to OR today for further incision and drainage. PHYSICAL EXAMINATION: CONSTITUTIONAL: No acute distress, resting comfortably, AAO x 3 EYES: PERRLA, EOM intact HENT, MOUTH: Normocephalic, atraumatic, moist mucous membranes, NECK: SUPPLE, no JVD, no lymphadenopathy, no carotid bruit CV: Regular rate and rhythm, S1S2 normal, no murmurs/rubs/gallops RESPIRATORY: Clear to auscultation bilaterally, no rales/rhonchi/wheezes GI: BS positive in 4 quadrants, soft, nontender, nondistended, no rebound or guarding, no organomegaly : Deferred MUSCULOSKELETAL: Normal ROM. No cyanosis, clubbing, swelling, joint deformity. INTEGUMENTARY: Swelling as localized only to right foot, erythema +: more medial involving the 1st three digits, dorsum. Wound on the planter aspect was draining pus from the right foot s/p incision and drainage now packed. Well healed scabbed wound on bottom of left foot where patient had stepped on other nail. NEUROLOGIC: Cranial Nerves II-XII are intact, no focal deficits PSYCHIATRIC: Mood and affect are normal LABORATORY DATA: Please see below IMAGING: Doppler Lower extremity: negative for DVT. ASSESSMENT and PLAN: 49 y/o M with PMH of HTN, DM type II, HLD, morbid obesity s/p bypass surgery admitted for further treatment of right foot cellulitis , acute on chronic kidney injury baseline creatinine of 2.5 to 2.7 Right foot cellulitis and abscess s/p stepping on nail 10/22/19 Vanco and Zosyn Rule out OM Had bedside I&D on 10/27/19 going to OR today for deeper Incision adn Drainage. Podiatry consult appreciated MRSA pcr positive Wound culture sent. Xray foot shows There is a fracture at the base of the 5th proximal phalanx. This involves the metatarsophalangeal joint. Acute on chronic kidney disease Stage stage 4. baseline creatinine 2.5 to 2.7 probably worse due to infection, Now creatinine is 3.4 Nephrology consult Peripheral neuropathy due to diabetes. C/w gabapentin. HLD C/w statin Hx of DM type II with retinopathy, neuropathy and nephropathy States that since gastric bypass, sugars has not been a problem. Off all his diabetic meds. His eyes are better, though still has bad neuropathy in the legs. GERD. not on home tx Anemia probably from CKD iron studies, vit B12 and Folate OK. H/O morbid obesity s/p gastric bypass surgery DVT prophylaxis heparin VS,Fishbone, I+O VS, Fishbone, I+O Laboratory Tests 10/29/19 06:44 Vital Signs Date Time Temp Pulse Resp B/P (MAP) Pulse Ox O2 Delivery O2 Flow Rate FiO2 10/29/19 06:00 97.9 64 17 131/75 (93) 100 Room Air I&O- Last 24 Hours up to 6 AM 10/29/19 05:59 Intake Total 2090 ml Output Total 1000 ml Balance 1090 ml JANET COLEY MD Oct 29, 2019 13:28
[2019-10-29 14:00] VITALS: BP 162/88
[2019-10-29] MEDS ORDERED: BUPIVACAINE HCL 0.5% 30 ML VIAL As Ordered ONE (14:42)
[2019-10-29] MEDS ORDERED: LIDOCAINE 1% SDV 30ML VIAL As Ordered ONE (14:42)
[2019-10-29 15:39] LABS: APPEARANCE, URINE CLEAR (CLEAR); BACTERIA, URINE AUTO NEGATIVE (NEGATIVE); BILIRUBIN, URINE AUTO NEGATIVE (NEGATIVE); BLOOD, URINE BLOOD 1+ (NEGATIVE); COLOR, URINE YELLOW (YELLOW); GLUCOSE, URINE (UA) AUTO 1+ mg/dL (NEGATIVE); KETONE, URINE AUTO NEGATIVE (NEGATIVE); LEUKOCYTE ESTERASE, URINE AUTO NEGATIVE (NEGATIVE); NITRITE, URINE AUTO NEGATIVE (NEGATIVE); PROTEIN, URINE AUTO 3+ mg/dL (NEGATIVE); RBC, URINE AUTO 3 /HPF (0-3); SPECIFIC GRAVITY URINE AUTO 1.011 (1.002-1.035); SQUAMOUS EPITHELIAL CELL UR AU 0 /HPF (0-6); UROBILINOGEN, URINE AUTO 0.2 mg/dL (0.0-2.0); WBC, URINE AUTO 2 /HPF (0-3)
[2019-10-29 16:06] LABS: CREATININE,RANDOM URINE 75.6 MG/DL; TOTAL PROTEIN,RANDOM URINE 500.3 MG/DL (0.0-12.0)
[2019-10-29] MEDS ORDERED: MIDAZOLAM INJ 2MG/2ML VIAL (J2250 PER 1MG) As Ordered ONE (16:54)
[2019-10-29] MEDS ORDERED: fentaNYL 100 MCG/2 ML INJECTION (J3010) As Ordered ONE (16:54)
[2019-10-29] MEDS ORDERED: propofoL 200 MG/20 ML VIAL As Ordered ONE ×2 (16:54→17:00)
[2019-10-29] MEDS ORDERED: fentaNYL 100 MCG/2 ML INJECTION (J3010) IV PRN (18:00)
[2019-10-29] MEDS ORDERED: LR 1,000 ML IV SCH (18:00)
[2019-10-29] MEDS ORDERED: oxyCODONE 5MG TAB PO PRN (18:00)
[2019-10-29] MEDS ORDERED: ONDANSETRON 4MG/2ML VIAL IV PRN (18:00)
[2019-10-29 20:00] VITALS: BP 140/64
[2019-10-29] MEDS: ATORVASTATIN 20 MG TAB PO SCH (20:18)
[2019-10-29] MEDS: ACETAMINOPHEN TAB 650MG DOSE (2X325MG) PO PRN (20:19)
[2019-10-29] MEDS: GABAPENTIN 300 MG CAP PO SCH (20:19)
--- NOTE | 2019-10-29 20:25 | CR ---
DATE OF CONSULTATION: 10/29/2019 REQUESTING PHYSICIAN: Dr. Christina Lieberman CONSULTING PHYSICIAN: Dr. Tiago Sarmiento REASON FOR CONSULTATION: Management of acute kidney injury superimposed on chronic kidney disease. CHIEF COMPLAINT: The patient was transferred from [facility] because of right foot cellulitis and acute kidney injury. HISTORY OF PRESENT ILLNESS: Mr. Kirby Velasquez is a 49-year-old male with a past medical history of diabetes mellitus, type 2, for many years and that got better after he got gastric bypass surgery, history of hypertension, chronic kidney disease stage IV with a baseline creatinine of around 2.7 as per outside records. He follows up with Dr. Goetz, who is a new car driver in [place]. Last time he saw him about a month ago. He was working on his deck at home, and he stepped on two nails and his foot got infected and he started having pain, erythema, swelling and tenderness that went all the way up to his right calf. He initially presented to the emergency room (ER) at [facility] where he was found to have acute kidney injury with a creatinine of 3.5. He had cellulitis of the right foot. He was ultimately transferred to [facility] for a higher level of care. He was admitted under the hospitalist service on October 25, 2019. He was started on IV vancomycin and Zosyn and IV fluid. Nephrology service was called for further help in the management of this patient with a persistently elevated creatinine. I saw and evaluated the patient today morning at the bedside. He is afebrile and hemodynamically stable, and he reports that he is feeling much better today as compared with the day of admission. PAST MEDICAL HISTORY: Past medical history of diabetes mellitus, type 2, that improved after gastric bypass. History of hypertension, hyperlipidemia, history of proteinuria and chronic kidney disease stage III to early stage IV, baseline creatinine of around 2.7 as of last month, peripheral neuropathy, gastroesophageal reflux disease and history of gastric bypass surgery. PAST SURGICAL HISTORY: Status post laparoscopic appendectomy in 2013, history of perirectal abscess surgery in the past, history of colostomy and colostomy reversal in the past, cataract surgeries and gastric bypass surgery. ALLERGIES: No known drug allergies. FAMILY HISTORY: No significant family history of end-stage renal disease requiring hemodialysis. SOCIAL HISTORY: The patient is an ex-smoker. He quit about 4 years ago. He drinks alcohol socially. He denies any illicit drug abuse. REVIEW OF SYSTEMS: Constitutional: He denies any fevers or chills at this time. Eyes: He denies any blurry vision, double vision. Ears, Nose and Throat (ENT): Denies any dysphagia, odynophagia. Cardiovascular: Denies any chest pain or palpitations. Respiratory: Denies any shortness of breath or cough. Gastrointestinal (GI): Denies any nausea or vomiting. Genitourinary: He did report decreased urine output on arrival, but it is getting better now. Musculoskeletal: He reports right foot swelling and ulcer. Hematology/Oncology: He denies any easy bleeding or bruising. Central nervous system (EDITOR): He denies any strokes or seizures. All other review of systems is negative. PHYSICAL EXAMINATION: General: The patient is awake, alert, oriented times three, laying in bed. Vital signs: Temperature is 97.9 degrees Fahrenheit, blood pressure 131/75, pulse is 64, respiratory rate of 17, saturating 100% on room air. Intake and output: Urine output recorded is 1.8 liters yesterday and 975 mL so far today since overnight. Head and neck exam: Extraocular muscles intact. Pupils equally round and reactive to light. Mucous membranes are moist. Neck is supple. There is no jugular venous distention (JVD). Cardiovascular: S1, S2, regular rate. No edema of the bilateral lower extremities. Respiratory: Chest is clear to auscultation bilaterally. Bilateral equal air entry. No rales or rhonchi. Abdomen: Soft. Old surgical scars in the abdomen were noted. No organomegaly is noted. Genitourinary: Bladder is not palpable. Musculoskeletal: He has a dressing on the right foot, otherwise normal range of movement. EDITOR: No focal deficit. Power is 5/5 in all extremities. Lymphs: No significant cervical or axillary lymphadenopathy. LAB REVIEW: CBC showed a WBC of 12.9, hemoglobin 8.7, platelets are 335. Urinalysis is not available at this time. BMP showed sodium 142, potassium 3.9, chloride 112, bicarbonate 20, BUN 33, creatinine is 3.3, glucose of 103, calcium is 8.2, iron level is low at 8, transferrin saturation is 7.6, ferritin is 769, C-reactive protein is 13.8. B12 is more than 2000, folic acid is 12.9, PTH level is pending. Vancomycin level trough level today morning was 26.3. Microbiology: Wound culture of the right foot is growing staph aureus, which is sensitive to oxacillin IMAGING STUDIES: A foot x-ray was done on October 27, 2019, which showed a fracture at the base of the 5th proximal phalanx, and this extends into the metatarsophalangeal joint. HOME MEDICATIONS: The patient's home medications include Lipitor 40 mg nightly, calcium citrate 500 mg by mouth nightly, gabapentin 600 mg by mouth nightly, multivitamin. He was given vancomycin and Zosyn at the outside hospital. CURRENT INPATIENT MEDICATIONS: The patient is getting Zosyn 2.25 grams IV every 6 hours. He was getting vancomycin 1 gram every 12 hours, which is on hold because of high therapeutic levels, Lipitor 40 mg nightly. I have started him on calcium 500 mg by mouth twice a day. He is on Lovenox 40 mg subcu daily. I have started him on iron tablets 324 mg by mouth daily. He is on gabapentin 600 mg nightly, insulin sliding scale, Bacid one tablet twice a day with meals, and I have started him on sodium bicarbonate 325 mg by mouth twice a day. ASSESSMENT: 49-year-old male with a history of gastric bypass, diabetes mellitus, type 2, that improved after gastric bypass, history of hypertension, baseline chronic kidney disease III to early stage IV, admitted at this time with acute kidney injury and right foot cellulitis. PLAN: 1. Acute kidney injury superimposed on chronic kidney disease stage IV. Patient's baseline creatinine is around 2.7. His creatinine is slightly higher than baseline. I have ordered a urinalysis along with urine protein and creatinine. According to outside records, the patient has baseline diabetic nephropathy along with proteinuria. 24-hour urine protein and creatinine has also been ordered. 2. Metabolic acidosis. It is secondary to acute kidney injury superimposed on chronic kidney disease. I have started the patient on oral sodium bicarbonate 325 mg by mouth twice a day. 3. Iron deficiency anemia. The patient has a history of gastric bypass. I started him on oral iron tablets. Once his infection gets better, I will give him IV Venofer. 4. Right foot cellulitis and 5th metatarsal fracture. The patient is currently on vancomycin and Zosyn. Culture is growing methicillin-sensitive staph aureus. Vancomycin level is already supratherapeutic. Vancomycin is on hold. Since he is diabetic, and there is risk of Pseudomonas infection, continue the Zosyn at this time. 5. Postsurgical malabsorption. The patient has a history of gastric bypass, and there is a risk of oxalate nephropathy. I have started him on calcium tablet 500 mg by mouth twice a day, and he has also been started on iron tablet because of iron deficiency anemia. Thank you for involving me in the care of this patient. I shall be happy to follow the patient along with you tomorrow morning.
[2019-10-30] VITALS: BP 130/78
[2019-10-30 04:00] VITALS: BP 146/84
[2019-10-30] MEDS: PIPERACILLIN/TAZOBACTAM SOD 2.25 GM in D5W MINI-BAG PLUS 50 ML IV SCH ×3 (04:28→20:19)
[2019-10-30] MEDS: ACETAMINOPHEN TAB 650MG DOSE (2X325MG) PO PRN ×2 (04:38→22:09)
[2019-10-30] MEDS: HumaLOG INSULIN (NovoLOG) PER UNIT SC SCH ×4 (07:30→20:20)
[2019-10-30 08:27] LABS: BASO # 0.1 10^3/uL (0.0-0.2); BASO % 0.5 % (0.0-1.0); EOS # 0.3 10^3/uL (0.0-0.5); EOS % 1.9 % (0.0-3.0); HEMATOCRIT 25.7 % (42.0-52.0); HEMOGLOBIN 8.3 g/dl (13.5-17.5); LYMPH # 2.4 10^3/uL (1.5-5.0); LYMPH % 16.4 % (24.0-44.0); MEAN CORPUSCULAR HEMOGLOBIN 28.8 pg (27.0-33.0); MEAN CORPUSCULAR HGB CONC 32.3 g/dl (32.0-36.5); MEAN CORPUSCULAR VOLUME 89.2 fl (80.0-96.0); MONO # 1.4 10^3/uL (0.0-0.8); MONO % 9.3 % (0.0-5.0); NEUTROPHILS # 10.4 10^3/uL (1.5-8.5); NEUTROPHILS % 70.3 % (36.0-66.0); PLATELET COUNT, AUTOMATED 371 10^3/uL (150-450); RED BLOOD COUNT 2.88 10^6/uL (4.30-6.10); WHITE BLOOD COUNT 14.8 10^3/uL (4.0-10.0)
[2019-10-30 08:55] LABS: CALCIUM LEVEL 7.5 MG/DL (8.5-10.1); CREATININE FOR GFR 4.13 MG/DL (0.70-1.30); GLOMERULAR FILTRATION RATE 16.5 (>60); POTASSIUM SERUM 4.2 MEQ/L (3.5-5.1)
[2019-10-30] MEDS: ENOXAPARIN 40MG/0.4ML SYRINGE (J1650 PER 10MG) SC SCH (09:00)
[2019-10-30] MEDS: SODIUM BICARBONATE 325 MG TAB PO SCH ×2 (09:07→20:20)
[2019-10-30] MEDS: CALCIUM/VITAMIN D 500 MG TAB PO SCH ×2 (09:07→20:20)
[2019-10-30] MEDS: LACTOBACILLUS ACIDOPHILUS CAP (BACID) PO SCH ×2 (09:07→17:40)
[2019-10-30] MEDS: CALCITRIOL 0.25 MCG CAP (S0169) PO SCH (09:08)
[2019-10-30] MEDS: FERROUS GLUCONATE 324 MG TAB PO SCH (09:08)
[2019-10-30 14:00] VITALS: BP 155/63
--- NOTE | 2019-10-30 14:24 | IPNPDOC ---
Text Note Date of Service The patient was seen on 10/30/19. NOTE SUBJECTIVE: Pt feels well. Denies chest pain, shortness of breath, palpitations. No nausea, vomiting, abdominal pain. Pain controlled on the right foot. PHYSICAL EXAMINATION: CONSTITUTIONAL: No acute distress, resting comfortably, AAO x 3 EYES: PERRLA, EOM intact HENT, MOUTH: Normocephalic, atraumatic, moist mucous membranes, NECK: SUPPLE, no JVD, no lymphadenopathy, no carotid bruit CV: Regular rate and rhythm, S1S2 normal, no murmurs/rubs/gallops RESPIRATORY: Clear to auscultation bilaterally, no rales/rhonchi/wheezes GI: BS positive in 4 quadrants, soft, nontender, nondistended, no rebound or guarding, no organomegaly MUSCULOSKELETAL: Normal ROM. No cyanosis, clubbing, swelling, joint deformity. INTEGUMENTARY: Status post right foot incision and drainage with bandage intact. Distal pulses intact. Capillary refill less than 2 seconds PSYCHIATRIC: Mood and affect are normal LABORATORY DATA: Please see below IMAGING: Doppler Lower extremity: negative for DVT. ASSESSMENT and PLAN: 49 y/o M with PMH of HTN, DM type II, HLD, morbid obesity s/p bypass surgery admitted for further treatment of right foot cellulitis , acute on chronic kidney injury baseline creatinine of 2.5 to 2.7 Right foot cellulitis and abscess s/p stepping on nail 10/22/19 Continue Zosyn Rule out OM Had bedside I&D on 10/27/19 going to OR today for deeper Incision adn Drainage. Podiatry consult appreciated MRSA pcr positive Wound culture sent. Xray foot shows There is a fracture at the base of the 5th proximal phalanx. This involves the metatarsophalangeal joint. - Vancomycin and discontinue given acute kidney injury - Infectious disease consulted - ? Need for MRI versus bone scan Acute on chronic kidney disease Stage stage 4. baseline creatinine 2.5 to 2.7 Vancomycin discontinued Nephrology consulted Peripheral neuropathy due to diabetes. C/w gabapentin. HLD C/w statin Hx of DM type II with retinopathy, neuropathy and nephropathy States that since gastric bypass, sugars has not been a problem. Off all his diabetic meds. His eyes are better, though still has bad neuropathy in the legs. GERD. not on home tx Anemia probably from CKD iron studies, vit B12 and Folate OK. H/O morbid obesity s/p gastric bypass surgery DVT prophylaxis heparin VS,Fishbone, I+O VS, Fishbone, I+O Laboratory Tests 10/30/19 08:09 Vital Signs Date Time Temp Pulse Resp B/P (MAP) Pulse Ox O2 Delivery O2 Flow Rate FiO2 10/30/19 05:15 99.4 10/30/19 04:00 79 18 146/84 (104) 96 Room Air I&O- Last 24 Hours up to 6 AM 10/30/19 06:00 Intake Total 2595 ml Output Total 1325 ml Balance 1270 ml LALO ACEVEDO MD Oct 30, 2019 14:24
[2019-10-30] MEDS: ATORVASTATIN 20 MG TAB PO SCH (20:20)
[2019-10-30] MEDS: GABAPENTIN 300 MG CAP PO SCH (20:20)
[2019-10-30 20:26] VITALS: BP 157/89
--- NOTE | 2019-10-31 00:30 | IPN ---
DATE OF VISIT: 10/30/2019 Patient and seen and examined. He denies overnight complaints. Vital signs are reviewed. He did have a low grade fever of 100.7 this morning. His recent temperature was 99.4. Other vital signs stable. Labs: White blood cell count is elevated 14.8, up from 12.9. Wound culture grew methicillin-sensitive Staphylococcus aureus. LOWER EXTREMITY EXAMINATION: Erythema is improved from previously demarcated line. The swelling is somewhat improved. Wound was inspected. No further purulence was noted. ASSESSMENT: 49-year-old diabetic male, status post incision and drainage. PLAN: Continue dressing changes twice a day. Continue IV antibiotics. Will reassess Saturday. Small chance he may need further incision and drainage, otherwise will have at least partial wound closure at that time.
[2019-10-31] MEDS: PIPERACILLIN/TAZOBACTAM SOD 2.25 GM in D5W MINI-BAG PLUS 50 ML IV SCH ×3 (04:49→20:30)
[2019-10-31 06:00] VITALS: BP 155/90
[2019-10-31] MEDS: HumaLOG INSULIN (NovoLOG) PER UNIT SC SCH ×2 (07:30→11:39)
[2019-10-31] MEDS: FERROUS GLUCONATE 324 MG TAB PO SCH (08:01)
[2019-10-31] MEDS: SODIUM BICARBONATE 325 MG TAB PO SCH (08:01)
[2019-10-31] MEDS: CALCIUM/VITAMIN D 500 MG TAB PO SCH ×2 (08:01→20:29)
[2019-10-31] MEDS: LACTOBACILLUS ACIDOPHILUS CAP (BACID) PO SCH ×2 (08:01→17:04)
[2019-10-31] MEDS: ENOXAPARIN 40MG/0.4ML SYRINGE (J1650 PER 10MG) SC SCH (08:01)
[2019-10-31 08:25] LABS: BASO # 0.1 10^3/uL (0.0-0.2); BASO % 0.7 % (0.0-1.0); EOS # 0.3 10^3/uL (0.0-0.5); EOS % 2.5 % (0.0-3.0); HEMATOCRIT 28.2 % (42.0-52.0); LYMPH # 2.2 10^3/uL (1.5-5.0); LYMPH % 18.3 % (24.0-44.0); MEAN CORPUSCULAR HEMOGLOBIN 28.4 pg (27.0-33.0); MEAN CORPUSCULAR HGB CONC 31.9 g/dl (32.0-36.5); MONO # 1.1 10^3/uL (0.0-0.8); NEUTROPHILS # 8.1 10^3/uL (1.5-8.5); NEUTROPHILS % 67.2 % (36.0-66.0); PLATELET COUNT, AUTOMATED 417 10^3/uL (150-450); RED BLOOD COUNT 3.17 10^6/uL (4.30-6.10); WHITE BLOOD COUNT 12.1 10^3/uL (4.0-10.0)
[2019-10-31 09:00] LABS: ERYTHROCYTE SEDIMENTATION RATE 129 mm/hr (0-15)
--- NOTE | 2019-10-31 09:18 | CR ---
DATE OF CONSULTATION: 10/30/2019 Asked to consult by Dr. Sanchez for evaluation of diabetic foot ulcer with abscess of the right foot. HISTORY OF PRESENT ILLNESS: Mr. Velasquez is a 49-year-old gentleman with a history of type 2 diabetes, obesity, hypertension, hyperlipidemia with neuropathy and nephropathy. The patient stepped on two nails on October 21. His right foot was quite deep causing an abscess with redness, pain and swelling. The one on the left foot was quite superficial and did not cause an infection. The patient had a fever of 100 with shaking chills and pain 9/10. He was seen at [facility] and transferred for I and D and intravenous (IV) antibiotics. The pain and cellulitis worsened. It involved his foot, pain was up to his knee and groin. He denied any shortness of breath, chest pain, nausea, vomiting, or diarrhea. On admission, his white count was 16.2, creatinine 3.5. He has severe calf tenderness. PAST MEDICAL HISTORY: Type 2 diabetes, currently off insulin since gastric bypass, hypertension, hyperlipidemia, peripheral neuropathy and retinopathy, gastroesophageal reflux disease, and history of collapsed lung, obesity, status post gastric bypass, history of Bernice's gangrene. PAST SURGICAL HISTORY: Laparoscopic appendectomy 2012, cataract surgery, gastric bypass surgery last year, 2018, by Dr. Antunez, colostomy placement and reversal after he had Bernice's gangrene in 2014 and multiple debridements for Bernice. FAMILY HISTORY: Father has history of blood clots, deep venous thrombosis (DVT), and mother with diabetes and morbid obesity. SOCIAL HISTORY: He quit smoking 4 years ago from three packs a day. Social alcohol use. No drug use. He lives with his . 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 ALLERGIES: NO KNOWN DRUG ALLERGIES. MEDICATIONS: - Zosyn 2.25 grams IV every 8 hours - calcitriol 0.25 mcg Saturday, Saturday, Saturday - calcium with vitamin D 500 twice a day - sodium bicarbonate 325 twice a day - ferrous gluconate 325 mg by mouth daily - Lovenox 40 mg subcu daily The patient has refused insulin sliding scale. Patient refusing gabapentin 600 mg by mouth at bedtime. LABORATORY DATA: White count was 13.9 on admission, 14.8 today, hemoglobin 8.3, hematocrit 25.7, platelets 371, 70% neutrophils, 17% lymphocytes, 9% monocytes. Sodium 142, potassium 4.2, chloride 113, bicarbonate 20, BUN 34, creatinine 4.13, glucose 103, calcium 7.5, CRP 13.8. Wound culture was only done on admission on 10/27/2019 with MSSA, and no anaerobic culture was done and no intraoperative cultures were done yesterday. Blood cultures two sets were negative. Respiratory panel was negative. Foot x-ray shows a fracture at the base of the fifth proximal phalanx. This extends into the metatarsophalangeal joint. No osseous discretion is seen. There is mild calcaneus spurring. Vascular ultrasound showed no evidence of DVT. PHYSICAL EXAMINATION: Healthy-looking gentleman in no acute distress. Heart: Normal S1 and S2. No murmurs, rubs or gallops. Lungs are clear. No wheezes, rales or rhonchi. Abdomen: Soft, obese, nontender. No hepatosplenomegaly. Healed scars of colostomy and the laparoscopic bypass. Extremities: +2 posterior tibialis pulses bilaterally. Left foot has a superficial scab at the mid foot arch well-healed. Right foot has a very large incision from the big toe down to the foot about 6 cm x 3 cm. There is exposed tendon, depth about 2 cm. The big toe skin about correction through is purplish in color, probably necrotic. There is mild surrounding erythema. There is no purulence on the packing. Range of motion of foot is normal ankle and toes. IMPRESSION: This is a 49-year-old gentleman with diabetes, currently off insulin, obesity, status post gastric bypass, chronic kidney disease who stepped on two nails about a week ago and has developed a diabetic foot ulcer with deep tissue abscess involving the right foot extending all the way to the joint but not the bone. The patient had an I and D. Culture was positive for MSSA, but that was a superficial culture, it was not repeated intraoperatively and no anaerobic cultures were sent. The patient is doing better. He is on IV Zosyn, which will be continued. PLAN: Since intraoperative cultures were not sent, I would suggest continuing with IV Zosyn to cover for Pseudomonas as he stepped on nail and to cover for anaerobes I would not switch him to cefazolin at this point. Zosyn should cover MSSA anaerobes and Pseudomonas. Case has been discussed with Dr. Valadez, who plans to take him back to the operating room hopefully for some closure of the wound by early next week Saturday or Saturday if it continues to improve. I doubt the patient will need IV antibiotics or a peripherally inserted central catheter (PICC) line. Will monitor on Saturday and further antibiotic choice will depend on clinical improvement.
[2019-10-31 10:26] LABS: ALBUMIN 1.4 GM/DL (3.2-5.2); C REACTIVE PROTEIN QUANTITATIV 8.73 MG/DL (0.00-0.30); CALCIUM LEVEL 7.7 MG/DL (8.5-10.1); CREATININE FOR GFR 4.95 MG/DL (0.70-1.30); GLOMERULAR FILTRATION RATE 13.4 (>60); PHOSPHORUS LEVEL 6.3 MG/DL (2.5-4.9); POTASSIUM SERUM 3.9 MEQ/L (3.5-5.1)
--- NOTE | 2019-10-31 10:51 | IPNPDOC ---
Text Note Date of Service The patient was seen on 10/31/19. NOTE SUBJECTIVE: Pt denies any complaints. Denies CP/SOB/palpitations. PHYSICAL EXAMINATION: CONSTITUTIONAL: No acute distress, resting comfortably, AAO x 3 EYES: PERRLA, EOM intact HENT, MOUTH: Normocephalic, atraumatic, moist mucous membranes, NECK: SUPPLE, no JVD, no lymphadenopathy, no carotid bruit CV: Regular rate and rhythm, S1S2 normal, no murmurs/rubs/gallops RESPIRATORY: Clear to auscultation bilaterally, no rales/rhonchi/wheezes GI: BS positive in 4 quadrants, soft, nontender, nondistended, no rebound or guarding, no organomegaly MUSCULOSKELETAL: Normal ROM. No cyanosis, clubbing, swelling, joint deformity. INTEGUMENTARY: Status post right foot incision and drainage with bandage intact. Distal pulses intact. Capillary refill less than 2 seconds PSYCHIATRIC: Mood and affect are normal LABORATORY DATA: Please see below IMAGING: Doppler Lower extremity: negative for DVT. ASSESSMENT and PLAN: 49 y/o M with PMH of HTN, DM type II, HLD, morbid obesity s/p bypass surgery admitted for further treatment of right foot cellulitis , acute on chronic kidney injury baseline creatinine of 2.5 to 2.7 Right foot cellulitis and abscess s/p stepping on nail 10/22/19 Continue Zosyn Rule out OM Had bedside I&D on 10/27/19 going to OR today for deeper Incision adn Drainage. Podiatry consult appreciated MRSA pcr positive Wound culture sent. Xray foot shows There is a fracture at the base of the 5th proximal phalanx. This involves the metatarsophalangeal joint. - Vancomycin and discontinue given acute kidney injury - Infectious disease consulted; appreciate input - ? Need for MRI versus bone scan; defer to ID - Possible closure early next week with podiatry Acute on chronic kidney disease Stage stage 4. -Metabolic Acidosis baseline creatinine 2.5 to 2.7 Vancomycin discontinued Nephrology consulted Started on a bicarb drip by nephro Renal U/s Peripheral neuropathy due to diabetes. C/w gabapentin. HLD C/w statin Hx of DM type II with retinopathy, neuropathy and nephropathy States that since gastric bypass, sugars has not been a problem. Off all his diabetic meds. His eyes are better, though still has bad neuropathy in the legs. GERD. not on home tx Anemia probably from CKD iron studies, vit B12 and Folate OK. H/O morbid obesity s/p gastric bypass surgery DVT prophylaxis heparin VS,Fishbone, I+O VS, Fishbone, I+O Laboratory Tests 10/31/19 07:30 Vital Signs Date Time Temp Pulse Resp B/P (MAP) Pulse Ox O2 Delivery O2 Flow Rate FiO2 10/31/19 06:00 97.8 63 17 155/90 (111) 96 Room Air I&O- Last 24 Hours up to 6 AM 10/31/19 05:59 Intake Total 1870 ml Output Total 600 ml Balance 1270 ml LALO ACEVEDO MD Oct 31, 2019 10:51
[2019-10-31] MEDS: (RENVELA) SEVELAMER **CARBONate** 800 MG TAB PO SCH ×2 (12:19→17:04)
[2019-10-31 12:30] VITALS: BP 165/89
[2019-10-31] MEDS: SODIUM BICARBONATE 150 MEQ in STERILE WATER LITER BAG 1,000 ML IV SCH (13:31)
--- NOTE | 2019-10-31 13:57 | IPN ---
DATE OF SERVICE: 10/30/2019 SUBJECTIVE: The patient was seen and examined the bedside today morning. He is afebrile, hemodynamically stable. He was getting his right foot dressing change when I saw him. His renal function is worse today as compared with yesterday. Vancomycin was stopped yesterday. He continues to be on Zosyn. 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 Blood pressure is 157/89. Pulse is 69, respiratory rate of 18, saturating 93% in room air. Intake/Output: Urine output recorded is 1.2 liters yesterday, 450 mL so far today since overnight. PHYSICAL EXAMINATION: General: The patient is awake, alert, oriented times three, laying in bed, in no apparent distress. Head/Neck Exam: Extraocular muscles intact. Pupils equally round and reactive to light. Mucous membranes are moist. Neck is supple. There is no jugular venous distention (JVD). Cardiovascular: S1, S2, regular rate. No edema of the bilateral lower extremities, except from right foot edema because of the infection. Respiratory: Chest is clear to auscultation bilaterally. Bilateral equal air entry. No rales or rhonchi. Abdomen: Soft, positive bowel sounds. Nontender. No organomegaly. Musculoskeletal: The patient's right foot was being dressed. There is an open wound. Foot was debrided by podiatry. Erythema is getting better. Central Nervous System (BAG TESTER): No focal deficit. Power is 5/5 in bilateral upper extremities. LAB REVIEW: Complete blood count (CBC) showed WBC 14.8, hemoglobin 8.3, platelets are 371. Basic metabolic panel (BMP) showed sodium 142, potassium of 4.2, chloride 113, bicarbonate is 20, BUN 34, creatinine is 4.1, it was 3.3 yesterday, calcium 7.5. MICROBIOLOGY: Repeat blood cultures were done today morning because of fever. Results are pending. CURRENT INPATIENT MEDICATIONS: The patient's medications were all reviewed by myself. Because of worsening renal function Zosyn dose has been decreased to 2.25 grams IV every 8 hours. No other significant change in the medications today as compared with yesterday. ASSESSMENT/PLAN: 1. Acute kidney injury superimposed on chronic kidney disease, stage IV. The patient's creatinine has bumped from 3.3 to 4.1 today. Vancomycin level was high yesterday. Vancomycin was stopped. I recommend not using vancomycin anymore and switching the patient to another antibiotic for MRSA coverage. Infectious disease (ID) consult is pending. It is okay to continue the Zosyn at this time. 2. Metabolic acidosis. The patient was started on sodium bicarbonate yesterday. Continue current dose. 3. Iron-deficiency anemia. Continue current dose of oral iron. IV iron will be given once the infection gets better. 4. Right foot cellulitis and 5th metatarsal fracture. The patient is getting I and D by podiatry. Okay to continue Zosyn . Vanco will need to be changed to another antibiotic because of vancomycin toxicity and acute kidney injury. The rest of the management is as per ID recommendations. 4. Postsurgical malabsorption. Risk of oxalate nephropathy with history of gastric bypass. Continue current dose of calcium. Iron deficiency anemia management is as mentioned above. MTDD
[2019-10-31 16:00] VITALS: BP 156/74
[2019-10-31 20:00] VITALS: BP 163/80
[2019-10-31] MEDS: GABAPENTIN 300 MG CAP PO SCH (20:30)
[2019-10-31] MEDS: ATORVASTATIN 20 MG TAB PO SCH (20:30)
[2019-11-01] VITALS (8 sets, daily range): BP systolic 124–173; BP diastolic 63–95
[2019-11-01] MEDS: PIPERACILLIN/TAZOBACTAM SOD 2.25 GM in D5W MINI-BAG PLUS 50 ML IV SCH ×3 (04:03→20:17)
[2019-11-01] MEDS: SODIUM BICARBONATE 150 MEQ in STERILE WATER LITER BAG 1,000 ML IV SCH ×2 (04:04→18:21)
[2019-11-01 04:29] LABS: HEMATOCRIT 25.1 % (42.0-52.0); HEMOGLOBIN 8.2 g/dl (13.5-17.5); MEAN CORPUSCULAR HEMOGLOBIN 28.5 pg (27.0-33.0); MEAN CORPUSCULAR HGB CONC 32.7 g/dl (32.0-36.5); MEAN CORPUSCULAR VOLUME 87.2 fl (80.0-96.0); PLATELET COUNT, AUTOMATED 409 10^3/uL (150-450); RED BLOOD COUNT 2.88 10^6/uL (4.30-6.10); WHITE BLOOD COUNT 12.6 10^3/uL (4.0-10.0)
[2019-11-01 04:55] LABS: ALBUMIN 1.2 GM/DL (3.2-5.2); BILIRUBIN,TOTAL 0.3 MG/DL (0.2-1.0); C REACTIVE PROTEIN QUANTITATIV 6.46 MG/DL (0.00-0.30); CALCIUM LEVEL 7.3 MG/DL (8.5-10.1); CREATININE FOR GFR 6.4 MG/DL (0.70-1.30); POTASSIUM SERUM 3.8 MEQ/L (3.5-5.1); TOTAL PROTEIN 5.2 GM/DL (6.4-8.2); VANCOMYCIN RANDOM 11.7 UG/ML
--- NOTE | 2019-11-01 07:51 | IPN ---
DATE OF VISIT: 10/31/2019 Mr. Velasquez is seen this morning on his bedside. He is feeling well and his foot is wrapped in dressing. He denies any fever, chills, nausea, vomiting, dyspnea or chest pain. He is on oral sodium bicarbonate due to acute renal failure and metabolic acidosis. His IV fluid has been stopped and he reports good oral intake. Patient is known to have diabetic nephropathy with stage IV chronic kidney disease (CKD) at baseline. He also has diabetic retinopathy and severe peripheral neuropathy. On physical exam, temperature 97.8 degrees Fahrenheit, heart rate 64 per minute and respiratory rate 17 per minute. Blood pressure 155/90 mmHg and oxygen saturation 96%. His head is atraumatic. Neck is supple and without jugular venous distention (JVD) or thyroid enlargement. Heart sounds are regular and without a pericardial friction rub. Lungs sound clear to auscultation bilaterally. Abdomen soft and nontender and bowel sounds are normal. Extremities have no cyanosis or clubbing. His right foot is wrapped in dressing. Neurologically, he is awake, alert and oriented times three. Today's labs show WBC count 12.1, hemoglobin 9.0 and hematocrit 28.2. Platelets 417. Sodium 141, potassium 3.9, CO2 16, BUN 38 and creatinine 4.95. Calcium is 7.7 and phosphorus 6.3. C-reactive protein is down to 8.7 and serum albumin is only 1.4. He had a 24-hour urine collection done, which showed 5.47 grams of protein. PROBLEMS: 1. Acute renal failure superimposed on chronic kidney disease. Patient has known history of diabetic nephropathy with stage IV chronic kidney disease at baseline. His acute renal failure is most likely related to his right foot infection and unfortunately his kidney function continues to get worse despite good hydration and antibiotic therapy for his foot infection. He is currently afebrile and his C-reactive protein is coming down. I have discussed with him and explained to him about his kidney function declining and potential need for dialysis. At this point, there is no emergent need for dialysis today and we will continue to monitor his kidney function on daily basis. 2. Metabolic acidosis. Metabolic acidosis has also worsened despite oral sodium bicarbonate. I am going to put him on sodium bicarbonate drip at 75 mL/h with 150 mEq of sodium bicarbonate in each liter of sterile water. We will recheck his chemistry tomorrow. 3. Anemia. His anemia is chronic and most likely related to chronic kidney disease and iron deficiency. He did have intravenous iron and at this point, we will continue to monitor. He is likely to require Aranesp and I will start with 100 mcg of Aranesp once a week. 4. Right foot infection. Patient remains on Zosyn and vancomycin has been stopped. His vancomycin level was high a couple of days ago and I will recheck to ensure that his vancomycin level has come down. He is not receiving vancomycin anymore. 5. Hyperphosphatemia. This is related to advanced renal failure. We are starting with Renvela 800 mg three times a day with meals.
[2019-11-01] MEDS: ENOXAPARIN 40MG/0.4ML SYRINGE (J1650 PER 10MG) SC SCH (08:13)
[2019-11-01] MEDS ORDERED: DARBEPOETIN 100 MCG/0.5 ML *NON-DIALYSIS* SYRINGE (J0881) SC SCH (09:00)
--- NOTE | 2019-11-01 09:40 | REP ---
RENAL ULTRASOUND: 10/31/2019. CLINICAL HISTORY: Acute renal failure. COMPARISON: CT abdomen/pelvis 10/13/2012. FINDINGS: The right kidney measures 14.9 x 6.9 x 7.3 cm. Its cortical echogenicity and thickness are normal. There is no stone, cyst, solid mass, or hydronephrosis. Some lobation is noted of the renal contour, normal. No perinephric fluid. The left kidney is 14 x 6.7 x 6.6 cm. Likewise, its cortical thickness and echogenicity are normal. There is no stone, mass, hydronephrosis, or hydroureter. Both kidneys show sinus lipomatosis. The bladder is nearly empty. Ureteral jets cannot be seen. The limited view is unremarkable. IMPRESSION: 1. A 14.9 cm right and 14 cm left kidney with normal cortical thickness and echogenicity. 2. Some sinus lipomatosis, but no hydronephrosis, stone, mass, or perinephric fluid. 3. Bladder nearly empty. No ureteral jets seen. Electronically Signed by Steve Ford MD 11/01/2019 09:43 A
[2019-11-01] MEDS: LACTOBACILLUS ACIDOPHILUS CAP (BACID) PO SCH ×2 (09:49→18:21)
[2019-11-01] MEDS: CALCIUM/VITAMIN D 500 MG TAB PO SCH ×2 (09:49→20:18)
[2019-11-01] MEDS: (RENVELA) SEVELAMER **CARBONate** 800 MG TAB PO SCH ×3 (09:49→18:21)
[2019-11-01] MEDS: FERROUS GLUCONATE 324 MG TAB PO SCH (10:18)
--- NOTE | 2019-11-01 10:53 | IPNPDOC ---
Text Note Date of Service The patient was seen on 11/01/19. NOTE SUBJECTIVE: Pt seen in PCU while on Bicarb drip. Pt denies any complaints. De nies CP/SOB/palpitations. Acidosis improved. PHYSICAL EXAMINATION: CONSTITUTIONAL: No acute distress, resting comfortably, AAO x 3 EYES: PERRLA, EOM intact HENT, MOUTH: Normocephalic, atraumatic, moist mucous membranes, NECK: SUPPLE, no JVD, no lymphadenopathy, no carotid bruit CV: Regular rate and rhythm, S1S2 normal, no murmurs/rubs/gallops RESPIRATORY: Clear to auscultation bilaterally, no rales/rhonchi/wheezes GI: BS positive in 4 quadrants, soft, nontender, nondistended, no rebound or guarding, no organomegaly MUSCULOSKELETAL: Normal ROM. No cyanosis, clubbing, swelling, joint deformity. INTEGUMENTARY: Status post right foot incision and drainage with bandage intact/chase bandage. Distal pulses intact. Capillary refill less than 2 seconds PSYCHIATRIC: Mood and affect are normal LABORATORY DATA: Please see below IMAGING: Doppler Lower extremity: negative for DVT. ASSESSMENT and PLAN: 49 y/o M with PMH of HTN, DM type II, HLD, morbid obesity s/p bypass surgery admitted for further treatment of right foot cellulitis , acute on chronic kidney injury baseline creatinine of 2.5 to 2.7 Right foot cellulitis and abscess s/p stepping on nail 10/22/19 Rule out OM Had bedside I&D on 10/27/19 going to OR today for deeper Incision adn Drainage. Podiatry consult appreciated MRSA pcr positive Wound culture sent. Xray foot shows There is a fracture at the base of the 5th proximal phalanx. This involves the metatarsophalangeal joint. - Vancomycin discontinue given acute kidney injury - Continue Zosyn - Infectious disease consulted; appreciate input - ? Need for MRI versus bone scan; defer to ID - Possible closure early next week with podiatry Acute on chronic kidney disease Stage stage 4. - Cr. worse today -Metabolic Acidosis baseline creatinine 2.5 to 2.7 Vancomycin discontinued Nephrology consulted Started on a bicarb drip by nephro Renal U/s noted; hartmann cath placed pending ct abd/pelvis Peripheral neuropathy due to diabetes. C/w gabapentin. HLD C/w statin Hx of DM type II with retinopathy, neuropathy and nephropathy States that since gastric bypass, sugars has not been a problem. Off all his diabetic meds. His eyes are better, though still has bad neuropathy in the legs. GERD. not on home tx Anemia probably from CKD iron studies, vit B12 and Folate OK. H/O morbid obesity s/p gastric bypass surgery DVT prophylaxis heparin Given pt is stable, transfer from PCU to med/surg telemetry while on bicarb dri p. VS,Fishbone, I+O VS, Fishbone, I+O Laboratory Tests 11/01/19 04:15 Vital Signs Date Time Temp Pulse Resp B/P (MAP) Pulse Ox O2 Delivery O2 Flow Rate FiO2 11/01/19 07:44 98.7 67 18 163/88 (113) 97 Room Air I&O- Last 24 Hours up to 6 AM 11/01/19 06:00 Intake Total 2080 ml Output Total 350 ml Balance 1730 ml LALO ACEVEDO MD Nov 01, 2019 10:53
--- NOTE | 2019-11-01 13:11 | IPN ---
DATE OF VISIT: 11/01/2019 Mr. Velasquez is seen this morning on his bedside. He was transferred to intensive care unit by hospitalist service without any obvious need for it. He had a renal ultrasound yesterday, which I had ordered and it did not show any hydronephrosis and his bladder was empty. Patient had a Schroeder catheter placed by the hospitalist service again this morning and there was no residual urine in the bladder. He also had a CAT scan of abdomen and pelvis done even though his renal ultrasound was completely unremarkable. In any event, patient remains on sodium bicarbonate drip since yesterday due to metabolic acidosis in the setting of acute renal failure superimposed on chronic kidney disease. On physical exam, patient is awake and alert and without any acute distress. Temperature 98.7 degrees Fahrenheit, heart rate 68 per minute and respiratory rate 18 per minute. Blood pressure 163/88 mmHg and oxygen saturation 97% on room air. Head is atraumatic. Neck supple and without jugular venous distention (JVD) or thyroid enlargement. Heart sounds are regular and lungs clear to auscultation. Abdomen soft and nontender and bowel sounds are normal. Extremities without any cyanosis or clubbing. His right foot is wrapped in dressing. I did look at the wound, which is without any drainage and has been packed. Neurologically, he is awake, alert and oriented times three. Today's labs show sodium 142, potassium 3.8, CO2 is up to 20, BUN 41 and creatinine 6.4. Glucose 81, calcium 7.6 and phosphorus 6.0. C-reactive protein is down to 6.46. White blood cell (WBC) count 12.6, hemoglobin 8.2 and hematocrit 25.1. PROBLEMS: 1. Acute renal failure superimposed on chronic kidney disease. Patient does not have any evidence of obstruction on the renal ultrasound and acute renal failure is related to infected foot wound. He has advanced stage IV of chronic kidney disease at baseline and diabetic nephropathy. His kidneys are large in size but no obstruction noticed. He did have vancomycin initially, which has been now stopped, and vancomycin level today is down to 11.7. At this point, there is no emergent need for dialysis today, however very much likely that patient will require dialysis within next 24-48 hours unless his kidney function starts improving. 2. Metabolic acidosis improved with sodium bicarbonate drip since yesterday and we will continue with the same for next 24 hours. Tomorrow will make a plan for dialysis if his kidney function does not improve by tomorrow morning. 3. Hyperphosphatemia. Slight improvement is noticed and patient will continue with Renvela 800 mg with each meal. 4. Anemia. Anemia is getting worse and this is related to acute on chronic renal failure. Aranesp was started yesterday and patient continues with iron supplement. 5. Infected right foot wound. Cellulitis is improving and patient remains on Zosyn. Vancomycin level is 11.7 and vancomycin has already been stopped. DISPOSITION: From a renal standpoint, patient can be transferred back to medical floor and does not need intensive care unit.
[2019-11-01] MEDS ORDERED: hydrALAZINE 20MG/ML 1ML VIAL (J0360 PER 20MG) IV PRN (13:30)
[2019-11-01] MEDS ORDERED: amLODIPine 5 MG TAB PO ONE (14:00)
--- NOTE | 2019-11-01 14:36 | REP ---
CT ABDOMEN/PELVIS WITHOUT IV CONTRAST: 11/01/2019. CLINICAL HISTORY: Renal failure. COMPARISON: Contrast CT 10/13/2012, ultrasound 10/31/2019. TECHNIQUE: Noncontrast scanning through the abdomen/pelvis with coronal and sagittal reconstructions provided. FINDINGS: CT ABDOMEN: The lung bases are clear. The heart is not enlarged, and there is no pericardial thickening or effusion. No hiatal hernia. There is evidence of gastric bypass. There is no hepatomegaly with the vertical diameter of the liver 17.5 cm in the right hepatic lobe midclavicular line. No biliary dilatation, cyst, mass, or ascites. No splenomegaly or focal splenic lesion. Gallbladder is only partially filled but without stone or mass. Pancreas without mass, ductal dilatation, or adjacent inflammatory change. No peripancreatic adenopathy or fluid collection. The aorta is without aneurysm and has some distal calcifications. Periaortic nodes are seen up to 9.67 mm with similar to slightly smaller aortocaval nodes. There are other smaller nodes in the mesentery in a 5-7 mm range. Adrenal glands are normal. Small bowel loops are fluid filled but without abnormal dilatation. Colon shows stool and fluid with air-fluid levels in nondilated loops on the right and transverse portion without diverticulitis or colitis. The kidneys show the right to be 14.2 and the left 14.5 cm. There is some mild sinus lipomatosis. I do not see abnormal calcifications in the renal fossae or collecting system for either kidney. There is some perinephric stranding about the kidneys and the perinephric fat but also periureteral stranding without hydronephrosis. No hydroureter, collecting system or ureteral stone. Ureters show normal course to the bladder. The bladder is nearly empty and its wall thickness therefore difficult to grinder and honer operator automatic. No gross evidence of stone or mass. There is no evidence of perforation or free air. No generalized ascites. There is some postsurgical change with clip in the right upper quadrant along the anterior margin of Gerota's fascia adjacent to the colon from prior colonic or appendix surgery. Bone windows show no acute compression deformity or destructive lesion. There are degenerative changes in the thoracic and lower lumbar levels. The visualized ribs are intact. CT PELVIS: The bony sacrum, SI joints, pelvis, and hips are without fracture. There are mild degenerative changes of the hips with some marginal osteophytes. Multiple pelvic phleboliths noted. Distal left colon, sigmoid, and rectum without acute inflammatory changes. There is no appendix seen. The cecum is without inflammatory change. Small bowel loops fluid-filled in the deep pelvis without dilatation. No pelvic ascites. No ventral or inguinal hernia in the pelvis. No inguinal adenopathy or pelvic adenopathy. IMPRESSION: 1. 14.2 cm right, 14.5 cm left kidney with some sinus lipomatosis. There is also some perinephric edema and stranding along with periureteral stranding in the renal sinus about the collecting system and proximal ureter. No renal stone, hydronephrosis, ureteral stone or dilatation. No mass or contour abnormality. 2. Some degenerative changes spine and hips. 3. Status post gastric bypass and some colonic surgery as well as appendectomy. 4. Small bowel loops and solid organs in the upper abdomen are unremarkable. Electronically Signed by Steve Ford MD 11/01/2019 07:02 P
[2019-11-01] MEDS: GABAPENTIN 300 MG CAP PO SCH (20:18)
[2019-11-01] MEDS: ATORVASTATIN 20 MG TAB PO SCH (20:18)
[2019-11-02] MEDS: ACETAMINOPHEN TAB 650MG DOSE (2X325MG) PO PRN (02:27)
[2019-11-02] MEDS: PIPERACILLIN/TAZOBACTAM SOD 2.25 GM in D5W MINI-BAG PLUS 50 ML IV SCH ×3 (04:14→21:27)
[2019-11-02 06:00] VITALS: BP 118/87
[2019-11-02 06:00] LABS: HEMATOCRIT 25.5 % (42.0-52.0); HEMOGLOBIN 8.4 g/dl (13.5-17.5); MEAN CORPUSCULAR HEMOGLOBIN 28.8 pg (27.0-33.0); MEAN CORPUSCULAR HGB CONC 32.9 g/dl (32.0-36.5); MEAN CORPUSCULAR VOLUME 87.3 fl (80.0-96.0); PLATELET COUNT, AUTOMATED 392 10^3/uL (150-450); RED BLOOD COUNT 2.92 10^6/uL (4.30-6.10); WHITE BLOOD COUNT 15.3 10^3/uL (4.0-10.0)
[2019-11-02 06:21] LABS: INR 1.36; PROTHROMBIN TIME 16.5 SECONDS (11.8-14.0)
[2019-11-02 06:39] LABS: ALBUMIN 1.2 GM/DL (3.2-5.2); BILIRUBIN,TOTAL 0.2 MG/DL (0.2-1.0); C REACTIVE PROTEIN QUANTITATIV 8.18 MG/DL (0.00-0.30); CALCIUM LEVEL 7.1 MG/DL (8.5-10.1); CREATININE FOR GFR 8.43 MG/DL (0.70-1.30); GLOMERULAR FILTRATION RATE 7.3 (>60); PHOSPHORUS LEVEL 5.5 MG/DL (2.5-4.9); POTASSIUM SERUM 3.5 MEQ/L (3.5-5.1)
[2019-11-02] MEDS: CALCITRIOL 0.25 MCG CAP (S0169) PO SCH (08:24)
[2019-11-02] MEDS: FERROUS GLUCONATE 324 MG TAB PO SCH (08:24)
[2019-11-02] MEDS: (RENVELA) SEVELAMER **CARBONate** 800 MG TAB PO SCH ×3 (08:24→18:00)
[2019-11-02] MEDS: LACTOBACILLUS ACIDOPHILUS CAP (BACID) PO SCH ×2 (08:24→18:00)
[2019-11-02] MEDS: ENOXAPARIN 40MG/0.4ML SYRINGE (J1650 PER 10MG) SC SCH (08:24)
[2019-11-02] MEDS: CALCIUM/VITAMIN D 500 MG TAB PO SCH ×2 (08:24→21:28)
[2019-11-02] MEDS ORDERED: amLODIPine 5 MG TAB PO SCH (09:00)
[2019-11-02] MEDS ORDERED: NS 1,000 ML IV SCH (09:15)
[2019-11-02 12:47] LABS: HEPATITIS B SURFACE ANTIBODY NEGATIVE (POSITIVE); HEPATITIS B SURFACE ANTIGEN NEGATIVE (NEGATIVE)
[2019-11-02 13:07] LABS: HEPATITIS B CORE ANTIBODY IGM NEGATIVE (NEGATIVE); HEPATITIS C VIRUS ABY INDEX 0.1 INDEX (<0.8)
--- NOTE | 2019-11-02 13:39 | IPN ---
DATE OF VISIT: 11/02/2019 Mr. Velasquez is seen this morning on his bedside. He is lying in the bed without any acute distress. His foot is elevated on the pillow and right foot is covered with dressing. He denies any nausea, vomiting, dyspnea or chest pain. He has no fever or chills. On physical exam, temperature 98.3 degrees Fahrenheit, heart rate 70 per minute and respiratory rate 18 per minute. Blood pressure 118/87 mmHg and oxygen saturation 97% on room air. Head is atraumatic. Neck supple and without jugular venous distention (JVD) or thyroid enlargement. Heart sounds are regular and without a pericardial friction rub. Lungs sound clear to auscultation. Abdomen soft and nontender, and bowel sounds are normal. Extremities have no cyanosis or clubbing. The right foot is wrapped in dressing. Neurologically, he is awake, alert and oriented times three. Today's labs show a WBC count 15.3, hemoglobin 8.4 and hematocrit 25.5. Platelets 392. Sodium 139, potassium 3.5, CO2 22, BUN 46 and creatinine 8.43. Calcium 7.1 and phosphorus 5.5. A C-reactive protein, which was trending down, is now up again 8.18 today. Serum albumin is only 1.2. PROBLEMS: 1. Acute renal failure superimposed on chronic kidney disease most likely related to right foot infection. He has known history of stage IV of chronic kidney disease at baseline. I have discussed with patient and explained to him about potential need for dialysis before and have explained once again today. We plan to dialyze him this afternoon and I have requested interventional radiology for a PermaCath placement. 2. Metabolic acidosis. His acidosis has improved and resolved. Sodium bicarbonate drip will be stopped. 3. Hematuria. Patient had a Schroeder catheter placed yesterday by hospitalist service and developed hematuria. His catheter has been removed. However, he still has gross hematuria. We will not use any heparin during dialysis. I am going to give him 1 liter of IV normal saline in order to increase his urine output to prevent any blood clots in the bladder. 4. Right foot infection. Patient remains on antibiotics and currently afebrile. However, I am concerned about increased white blood cell count and C-reactive protein. I will defer to hospitalist service for imaging of his foot. I would recommend MRI of his foot to rule out any possibility of osteomyelitis. 5. Anemia. His anemia is essentially unchanged. However, he does have gross hematuria with risk for worsening of anemia. We will not use any heparin during dialysis and CBC will be checked again tomorrow.
[2019-11-02] MEDS ORDERED: LIDOCAINE 1% MDV 20ML VIAL As Ordered ONE (13:57)
[2019-11-02 14:00] VITALS: BP 162/91
[2019-11-02] MEDS ORDERED: ceFAZolin 1GM VIAL (J0690 PER 500MG) As Ordered ONE (14:12)
[2019-11-02] MEDS ORDERED: fentaNYL 100 MCG/2 ML INJECTION (J3010) As Ordered ONE (15:23)
[2019-11-02] MEDS ORDERED: diphenhydrAMINE 50MG/ML VIAL (J1200) As Ordered ONE (15:23)
[2019-11-02] MEDS ORDERED: MIDAZOLAM INJ 2MG/2ML VIAL (J2250 PER 1MG) As Ordered ONE (15:24)
--- NOTE | 2019-11-02 15:54 | IRMSE ---
[facility] IR Moderate Sedation Eval. Date and Time Date: Nov 02, 2019 Time: 15:54 ASA Classification ASA Classification: III-Severe systemic dis. Mallampati Score: II NPO: Yes Obstructive Sleep Apnea: No Interval Plan: moderate sedation ROSAURA CASTRO MD Nov 02, 2019 15:54
--- NOTE | 2019-11-02 15:56 | POST-OPPD ---
Postoperative Procedure Note Date Of Procedure: Nov 02, 2019 Time Of Procedure: 15:54 PREOPERATIVE DIAGNOSIS: RF POSTOPERATIVE DIAGNOSIS: same FINDINGS: patent right J PROCEDURE: right sided permcath placed. Locked with high dose heparin. catheter is ready to use after heparin aspiration. SURGEON: Yamini ANESTHESIA: mod sed ESTIMATED BLOOD LOSS: < 5 ml COMPLICATIONS: none POSTOPERATIVE CONDITION: stable ROSAURA CASTRO MD Nov 02, 2019 15:56
--- NOTE | 2019-11-02 16:07 | IPNPDOC ---
Text Note Date of Service The patient was seen on 11/02/19. NOTE Subjective: No any acute events overnight. Patient denied fever or chills, na usea or vomiting, diarrhea General - NAD, sitting up in bed, well groomed Eyes - PERRLA, EOM intact Neck - No noticeable or palpable swelling, redness or rash around throat or on face Lymph Nodes - No lymphadenopathy Cardiovascular - RRR no m/r/g, no JVD, no carotid bruits Lungs - Clear to auscultation, no use of accessory muscles, no crackles or wheezes. Skin - No rashes, skin warm and dry, no erythematous areas Abdomen - Normal bowel sounds, abdomen soft and nontender Extremities - The right foot is wrapped in dressing, status post right foot incision and drainage with bandage intact/chase bandage Musculoskeletal - 5/5 strength, normal range of motion, no swollen or erythematous joints. Neurological Alert and oriented x 3, CN 2-12 grossly intact Assessment and plan: 49 y/o M with PMH of HTN, DM type II, HLD, obesity s/p bypass surgery admitted for further treatment of right foot cellulitis. Also patient was found to have acute on chronic renal failure. Perm catheter was placed on 11/02/19 Right foot cellulitis and abscess s/p stepping on nail 10/22/19 Had bedside I&D on 10/27/19 Xray foot shows There is a fracture at the base of the 5th proximal phalanx. This involves the metatarsophalangeal joint. MRI of right foot ordered, most likely patient developed osteomyelitis given extension of the wound and elevated sedimentation rate Continue Zosyn Appreciate/agree with infectious diseases f/u stage IV right foot wound [employer] team follows him Continue antibiotics See above Acute on chronic renal failure Multifactorial due to diabetes, foot infection and medication side effect [employer] team follows him Dialysis today PermaCath placement Metabolic acidosis. resolved. Sodium bicarbonate drip will be stopped Hematuria Normocytic, most likely secondary chronic diseases and CKD superimposed with hematuria after Schroeder placement Continue to monitor VS,Fishbone, I+O VS, Fishbone, I+O Laboratory Tests 11/02/19 05:37 Vital Signs Date Time Temp Pulse Resp B/P (MAP) Pulse Ox O2 Delivery O2 Flow Rate FiO2 11/02/19 15:30 67 18 100 Nasal Cannula 2 11/02/19 14:45 97.6 11/02/19 14:00 162/91 (114) I&O- Last 24 Hours up to 6 AM 11/02/19 06:00 Intake Total 4155 ml Output Total 250 ml Balance 3905 ml MARY TSAI DO Nov 02, 2019 16:07
[2019-11-02] MEDS: GABAPENTIN 300 MG CAP PO SCH (21:28)
[2019-11-02] MEDS: ATORVASTATIN 20 MG TAB PO SCH (21:28)
[2019-11-02 22:00] VITALS: BP 140/82
[2019-11-03] MEDS: PIPERACILLIN/TAZOBACTAM SOD 2.25 GM in D5W MINI-BAG PLUS 50 ML IV SCH ×3 (03:50→20:39)
[2019-11-03 06:00] VITALS: BP 152/74
[2019-11-03 07:10] LABS: HEMATOCRIT 24.1 % (42.0-52.0); MEAN CORPUSCULAR HGB CONC 33.2 g/dl (32.0-36.5); MEAN CORPUSCULAR VOLUME 87.3 fl (80.0-96.0); PLATELET COUNT, AUTOMATED 383 10^3/uL (150-450); RED BLOOD COUNT 2.76 10^6/uL (4.30-6.10); WHITE BLOOD COUNT 13.6 10^3/uL (4.0-10.0)
[2019-11-03 07:36] LABS: ALBUMIN 1.1 GM/DL (3.2-5.2); BILIRUBIN,TOTAL 0.2 MG/DL (0.2-1.0); C REACTIVE PROTEIN QUANTITATIV 10.9 MG/DL (0.00-0.30); CALCIUM LEVEL 7.6 MG/DL (8.5-10.1); CREATININE FOR GFR 7.3 MG/DL (0.70-1.30); GLOMERULAR FILTRATION RATE 8.6 (>60); PHOSPHORUS LEVEL 5.6 MG/DL (2.5-4.9); POTASSIUM SERUM 3.6 MEQ/L (3.5-5.1); TOTAL PROTEIN 5.8 GM/DL (6.4-8.2)
[2019-11-03] MEDS: ENOXAPARIN 40MG/0.4ML SYRINGE (J1650 PER 10MG) SC SCH (08:06)
[2019-11-03] MEDS: LACTOBACILLUS ACIDOPHILUS CAP (BACID) PO SCH ×2 (08:19→18:12)
[2019-11-03] MEDS: FERROUS GLUCONATE 324 MG TAB PO SCH (08:19)
[2019-11-03] MEDS: CALCIUM/VITAMIN D 500 MG TAB PO SCH ×2 (08:19→20:39)
[2019-11-03] MEDS: (RENVELA) SEVELAMER **CARBONate** 800 MG TAB PO SCH ×3 (08:19→18:12)
--- NOTE | 2019-11-03 10:06 | IPN ---
DATE: 11/02/2019 Kirby was seen in dialysis today. He was not happy. He was upset about the fact that he needed dialysis. He has no nausea or vomiting. He has chronic diarrhea after gastric bypass which is unchanged. No abdominal pain. No fever or chills. He has no pain in his foot. White count 15.3, which has increased from 12, hemoglobin 8.4, hematocrit 25.5, platelets 392. Sodium 139, potassium 3.5, chloride 106, bicarb 22, BUN 46, creatinine 8.40, glucose 125, calcium 7.11, phosphorus 5.5, AST 23, ALT 29, alkaline phosphatase 122, CRP 88.18 which has remained stable over the past 3 days. Wound culture on admission with Methicillin-Susceptible Staphylococcus aureus (MSSA). CT abdomen and pelvis done without contrast on 10/31 showed no stones, hydronephrosis or dilatation, some degenerative changes of the spine and hips gastric bypass. On physical exam, temperature is 97.6, pulse 67, respirations 18, O2 saturation 96% on room air. Blood pressure 162/91, T-max today was 100.5 at night. Heart: Normal S1-S2. No murmurs appreciated. Lungs are clear. No wheezes or rhonchi. Abdomen: Soft, nontender. Bowel sounds present. Extremities: No clubbing, cyanosis or edema. Right foot has an open wound along the big toe and first metatarsal. The big toe was swollen, red. He has normal range of motion of the toes. The tendon is exposed. The wound measures about 2.5 cm. There is serous drainage. Minimal surrounding cellulitis. IMPRESSION: 1. Deep tissue abscess with culture positive for Methicillin-Susceptible Staphylococcus aureus (MSSA) and per Dr. Valadez there was joint involvement of the big toe, but no involvement of the bone. My concern is that he still has persistent leukocytosis and fever and therefore repeat wound culture will be obtained and MRI to make sure there is no residual infection before closure of the wound. 2. A nail puncture of the big toe. The patient is on appropriate coverage for Pseudomonas even though that did not grow on wound culture and he has received a tetanus booster. 3. Acute kidney injury and on chronic kidney disease. Patient undergoing dialysis through a PermaCath. 4. Diarrhea related to gastric bypass not any worse. The patient has been on probiotics twice a day. PLAN: Continue with IV Zosyn. Schedule MRI foot in the morning. Wound culture will be repeated
--- NOTE | 2019-11-03 11:43 | REP ---
MRI RIGHT FOOT: Multiple sequences obtained in the axial, coronal and sagittal planes. Soft tissue ulceration is noted in the plantar soft tissues adjacent to the first proximal phalanx. There is diffuse marrow edema involving the 1st proximal and distal phalanges. Findings are compatible with osteomyelitis. There is diffuse soft tissue edema of the foot. There is probably cellulitis of the forefoot. No abscess collection is seen. Small amount of fluid is seen at the posterior margin of the talocalcaneal joint. Flexor and extensor tendons are unremarkable with no evidence of tenosynovitis. IMPRESSION: Findings compatible with osteomyelitis of the 1st proximal and distal phalanges. Electronically Signed by Walter Lacey MD 11/04/2019 12:02 A
[2019-11-03 14:00] VITALS: BP 119/70
--- NOTE | 2019-11-03 16:31 | IPNPDOC ---
Date Seen The patient was seen on 11/03/19. Progress Note 49 y/o M was admitted for right foot cellulitis and requiring HD for worsening of CKD. Pt was seen and examined at bedside. NO significant event over the night. Pt stated that he is feeling fine. No new complaint. denied fever or chills, Physical examination General - not in distress Eyes - PERRLA,oral mucosa moist Neck - supple Cardiovascular - RRR Lungs - Clear to auscultation, no use of accessory muscles, no crackles or wheezes. Skin - No rashes, skin warm and dry, no erythematous areas Abdomen - Normal bowel sounds, abdomen soft and nontender Extremities - The right foot is wrapped in dressing, status post right foot incision and drainage with bandage intact/chase bandage Musculoskeletal - 5/5 strength, normal range of motion, Neurological Alert and oriented x 3, CN 2-12 grossly intact, no focal deficit Assessment and plan: 49 y/o M with PMH of HTN, DM type II, HLD, obesity s/p bypass surgery admitted for further treatment of right foot cellulitis. Pt was found to have acute on chronic renal failure. Perm catheter was placed on 11/02/19 Right foot cellulitis and abscess s/p stepping on nail 10/22/19 Had bedside I&D on 10/27/19 Xray foot shows There is a fracture at the base of the 5th proximal phalanx. This involves the metatarsophalangeal joint. MRI osteomyelitis Continue [facility] infectious diseases recommendations appreciated will f/u with podiatry team stage IV right foot wound Continue antibiotics See above Acute on chronic renal failure Multifactorial due to diabetes, foot infection and medication side effect Teaching Manager team follows him Had Dialysis today PermaCath placement, wants to f/u [place] Neph[place] Metabolic acidosis. resolved. s/p Sodium bicarbonate drip Hematuria most probably related to traumatic Schroeder placement Continue to monitor Obesity supportive care VS, I&O, 24H, Fishbone Vital Signs/I&O Vital Signs Date Time Temp Pulse Resp B/P (MAP) Pulse Ox O2 Delivery O2 Flow Rate FiO2 11/03/19 14:00 98.5 89 18 119/70 (86) 98 Room Air 11/02/19 15:40 2 I&O- Last 24 Hours up to 6 AM 11/03/19 05:59 Intake Total 3120 ml Output Total 650 ml Balance 2470 ml Laboratory Data 24H LABS Laboratory Tests 2 11/03/19 06:28: Nucleated Red Blood Cells % (auto) 0.0, Anion Gap 8, Glomerular Filtration Rate 8.6L, Calcium Level 7.6L, Phosphorus Level 5.6H, Total Bilirubin 0.2, Aspartate Amino Transf (AST/SGOT) 19, Alanine Aminotransferase (ALT/SGPT) 19, Alkaline Phosphatase 116, C-Reactive Protein, Quantitative 10.90H, Total Protein 5.8L, Albumin 1.1L, Albumin/Globulin Ratio 0.2 CBC/BMP Laboratory Tests 11/03/19 06:28 Microbiology Microbiology 11/03/19 Gram Stain, Received Pending 11/03/19 Wound Culture, Received Pending 10/30/19 Blood Culture - Preliminary, Resulted No Growth after 72 hours. All specime... 10/30/19 Blood Culture - Preliminary, Resulted No Growth after 72 hours. All specime... 10/29/19 Respiratory Virus Panel (PCR) ([facility]) - Final, Complete 10/27/19 Wound Culture - Final, Complete Staphylococcus Aureus ARVIND KENNEDY MD Nov 03, 2019 16:31
--- NOTE | 2019-11-03 18:43 | IPN ---
DATE OF VISIT: 11/03/2019 Patient seen and examined at bedside. He denies current complaints. Denies any pain in his foot. Weekend events noted. He has had significant worsening of his renal function over the weekend with plans for dialysis with Permacath placement planned. LOWER EXTREMITY EXAMINATION: The erythema to his right foot is nearly resolved. There is no purulence in the wound. ASSESSMENT: 49-year-old diabetic male, status post incision and drainage due to abscess from puncture wound. PLAN: Continue antibiotics. Dr. Mishra has been consulted from infectious disease. Will plan for partial wound closure tomorrow.
--- NOTE | 2019-11-03 18:55 | IPN ---
DATE: 11/03/2019 Mr. Velasquez is seen this morning on his bedside. He underwent first hemodialysis yesterday due to acute renal failure superimposed on chronic kidney disease. He has right foot infected wound and cellulitis. He had an MRI done yesterday due to increasing C-reactive protein and leukocytosis. The official report is still pending. PHYSICAL EXAMINATION: Temperature 98.6 degrees Fahrenheit, heart rate 88 per minute, and respiratory rate 18 per minute. Blood pressure 152/74 mm of mercury and oxygen saturation 98% on room air. Head is atraumatic. Neck supple and without jugular venous distention (JVD) or thyroid enlargement. Dialysis catheter on right upper chest is intact. Heart sounds are regular and lungs clear to auscultation. Abdomen soft and nontender. Bowel sounds are normal. Extremities without any cyanosis or clubbing. Right foot is wrapped in dressing. Neurologically, he is awake, alert, and oriented times three. Today's labs show WBC count 13.6, hemoglobin 8.0, and hematocrit 24.1. Platelets 383. Sodium 141, potassium 3.6, CO2 of 27, BUN 30, and creatinine 7.30. Calcium 7.6 and phosphorus 5.6. His serum albumin is only 1.1. PROBLEMS: 1. Acute renal failure superimposed on chronic kidney disease. No recovery of kidney function so far, and the patient will be dialyzed again today. Yesterday he tolerated his first dialysis very well. 2. Infected wound, right foot. I am concerned about possibility of osteomyelitis. He already had MRI done of his right foot. An official report is pending. He remains on Zosyn, and vancomycin has been stopped. 3. Anemia. His anemia is getting worse, and this is most likely related to acute on chronic kidney disease. The patient was given Aranesp 100 mcg on Saturday and will give him further dose on Saturday if needed. 4. Hyperphosphatemia. His phosphorus level is improving, and we will continue with phosphate binder. 5. Hypoalbuminemia. This is a chronic issue. Patient has severe nephrotic syndrome and now with ongoing foot infection. His albumin level has worsened further.
--- NOTE | 2019-11-03 19:17 | IPN ---
DATE OF VISIT: 11/03/2019 Patient seen and examined. Denies new complaints in his feet. Vital signs are reviewed. He has remained afebrile. Maximum temperature (T max) was 99.2. Labs are reviewed. White blood cell count remains elevated at 13.6; it has trended down from yesterday 15.3. His creatinine remains elevated at 7.3. CRP remains elevated at 10.9. LOWER EXTREMITY EXAMINATION: Erythema nearly resolved, now only remaining on the hallux itself at the interphalangeal joint (IPJ) level. Wound is inspected. There is no purulent drainage or significant necrotic tissue. Imaging studies are reviewed. Foot MRI was performed. There is some marrow edema involving the proximal and distal phalanx of the hallux, which is suggestive of osteomyelitis. There is soft tissue edema. There is no abscess identified. ASSESSMENT: 49-year-old diabetic male with abscess, status post incision and drainage and possible osteomyelitis. PLAN: Will postpone closure. Will plan bone biopsy with wound inspection tomorrow. He should be nothing by mouth after 8 in the morning tomorrow for surgery planned in the afternoon.
[2019-11-03] MEDS: GABAPENTIN 300 MG CAP PO SCH (20:39)
[2019-11-03] MEDS: ATORVASTATIN 20 MG TAB PO SCH (20:39)
[2019-11-03 22:00] VITALS: BP 164/80
--- NOTE | 2019-11-04 00:11 | IPN ---
DATE: 11/03/2019 Mr. Velasquez was seen today in his room after dialysis. He is doing well. He has no new complaints. No fever or chills. Dr. Valadez called me today to discuss the case. He is taking him back to the operating room (OR) for wound debridement and inspection as well as bone biopsy. He continues with a slightly elevated white count, but he is afebrile. No nausea, vomiting. He has chronic diarrhea from gastric bypass, unchanged. White count is 13.6, creatinine 7.3, CRP 10.9 which is increased from 8. Heart: Normal S1, S2. No murmurs. Lungs are clear. No wheezes, rales or rhonchi. Abdomen: Soft, nontender. Extremities: No edema on the left side. Right foot was not examined today as it was just changed by Dr. Valadez an hour before I arrived. The toe was still swollen and erythematous, but there was no purulent discharge per Dr. Valadez. LABORATORY DATA: White count 13.6, hemoglobin 8, hematocrit 24.1, platelets 383. Sodium 141, potassium 3.6, chloride 106, bicarbonate 27, BUN 30, creatinine 7.3, glucose 100, calcium 7.6, phosphorus 5.6. MRI consistent with osteomyelitis of the right big toe including the proximal and distal phalanges. There is no abscess. IMPRESSION: Acute osteomyelitis of the right big toe with complicated skin and soft tissue infection and abscess with culture positive for methicillin-sensitive Staphylococcus aureus (MSSA). The patient is on IV Zosyn. Nail puncture infection. Repeat bone biopsy will be done tomorrow to make sure there is no other pathogens that we have not covered as the patient still has an elevated CRP and white count, although these could be related to his kidney issues. PLAN: Continue IV Zosyn. Exploration of the wound tomorrow and repeat bone biopsy. The patient will be treated for a total of 6 weeks of antibiotics, probably you can change him to some oral regimen once we have repeat cultures done.
[2019-11-04] MEDS: PIPERACILLIN/TAZOBACTAM SOD 2.25 GM in D5W MINI-BAG PLUS 50 ML IV SCH ×3 (04:28→20:12)
[2019-11-04 06:00] VITALS: BP 168/84
[2019-11-04 06:32] LABS: HEMATOCRIT 23.3 % (42.0-52.0); HEMOGLOBIN 7.4 g/dl (13.5-17.5); MEAN CORPUSCULAR HEMOGLOBIN 27.9 pg (27.0-33.0); MEAN CORPUSCULAR HGB CONC 31.8 g/dl (32.0-36.5); MEAN CORPUSCULAR VOLUME 87.9 fl (80.0-96.0); PLATELET COUNT, AUTOMATED 394 10^3/uL (150-450); RED BLOOD COUNT 2.65 10^6/uL (4.30-6.10); WHITE BLOOD COUNT 11.4 10^3/uL (4.0-10.0)
[2019-11-04 06:59] LABS: ALBUMIN 1.3 GM/DL (3.2-5.2); BILIRUBIN,TOTAL 0.3 MG/DL (0.2-1.0); C REACTIVE PROTEIN QUANTITATIV 8.43 MG/DL (0.00-0.30); CALCIUM LEVEL 7.4 MG/DL (8.5-10.1); CREATININE FOR GFR 6.48 MG/DL (0.70-1.30); GLOMERULAR FILTRATION RATE 9.8 (>60); PHOSPHORUS LEVEL 4.2 MG/DL (2.5-4.9); POTASSIUM SERUM 3.8 MEQ/L (3.5-5.1); TOTAL PROTEIN 5.4 GM/DL (6.4-8.2)
[2019-11-04] MEDS ORDERED: DARBEPOETIN 200MCG/0.4ML *DIALYSIS* SYRINGE (J0882 PER 1MCG) IV SCH (07:45)
[2019-11-04] MEDS ORDERED: IRON SUCROSE 100MG 5ML VIAL (J1756 PER 1MG) IV SCH (07:45)
[2019-11-04] MEDS: LACTOBACILLUS ACIDOPHILUS CAP (BACID) PO SCH ×2 (07:56→18:00)
[2019-11-04] MEDS: (RENVELA) SEVELAMER **CARBONate** 800 MG TAB PO SCH ×3 (07:56→18:00)
[2019-11-04] MEDS: FERROUS GLUCONATE 324 MG TAB PO SCH (07:57)
[2019-11-04] MEDS: CALCIUM/VITAMIN D 500 MG TAB PO SCH ×2 (07:57→20:13)
[2019-11-04] MEDS: ENOXAPARIN 40MG/0.4ML SYRINGE (J1650 PER 10MG) SC SCH (07:57)
[2019-11-04] MEDS: CALCITRIOL 0.25 MCG CAP (S0169) PO SCH (07:57)
--- NOTE | 2019-11-04 13:57 | IPN ---
DATE OF VISIT: 11/04/2019 Mr. Velasquez is seen this morning on his bedside. He is feeling well and denies any new complaints. He underwent his second hemodialysis yesterday, which he tolerated very well. Unfortunately, his kidney function has not improved so far. His right foot MRI did show osteomyelitis and he remains on Zosyn. He is currently afebrile and denies any nausea, vomiting, dyspnea or chest pain. On physical exam, temperature 98.5 degrees Fahrenheit, heart rate 68 per minute and respiratory rate 18 per minute. Blood pressure 168/84 mmHg and oxygen saturation 98% on room air. Head is atraumatic. Neck supple and without jugular venous distention (JVD) or thyroid enlargement. Dialysis catheter on right upper chest is intact. Heart sounds are regular and lungs clear to auscultation. Abdomen soft and nontender and bowel sounds are normal. Extremities without any cyanosis or clubbing. Right foot is wrapped in dressing. Today's labs show WBC count 11.4, hemoglobin 7.4 and hematocrit 23.3. Platelets 394. Sodium 142, potassium 3.8, BUN 20 and creatinine 6.48. Calcium 7.4 and phosphorus 4.2. PROBLEMS: 1. Acute renal failure superimposed on chronic kidney disease. Patient was dialyzed yesterday again and we will plan to dialyze him tomorrow. Unfortunately, kidney function is not improving as yet. Slight decrease in serum creatinine is due to dialysis yesterday. His electrolytes are stable and volume status well-compensated. There is no emergent need for dialysis today. 2. Anemia. His anemia is worsened most likely related to bleeding and acute renal failure. He had gross hematuria after Schroeder catheter placement. We have not given him any heparin during dialysis. He already had iron deficiency and we will start with intravenous Venofer 100 mg with each dialysis and also change his Aranesp to 200 mcg once a week. It is likely that he will require transfusion in addition. Complete blood count (CBC) will be checked tomorrow. 3. Hypertension. Blood pressure is reasonably well-controlled on current medications and no changes are being made today. 4. Right foot infection with osteomyelitis. Patient remains on Zosyn and he is scheduled for OR today in order to close his wound. He is currently afebrile. He is likely to require antibiotic for at least 6 weeks.
[2019-11-04 14:00] VITALS: BP 160/80
[2019-11-04] MEDS ORDERED: BUPIVACAINE HCL 0.5% 10ML VIAL As Ordered ONE (14:37)
[2019-11-04] MEDS ORDERED: LIDOCAINE 1% MDV 20ML VIAL As Ordered ONE (14:37)
--- NOTE | 2019-11-04 15:31 | IPNPDOC ---
Date Seen The patient was seen on 11/04/19. Progress Note 49 y/o M was admitted for right foot cellulitis and requiring HD for worsening of CKD. Pt was seen and examined at bedside. No significant event over the night. Pt stated that he is feeling fine. Denied fever or chills, No new complaint. Physical examination General - not in distress Eyes - PERRLA,oral mucosa moist Neck - supple Cardiovascular - RRR Lungs - Clear to auscultation, no use of accessory muscles, no crackles or wheezes. Skin - No rashes, skin warm and dry, no erythematous areas Abdomen - Normal bowel sounds, abdomen soft and nontender Extremities - The right foot is wrapped in dressing, status post right foot incision and drainage with bandage intact/chase bandage Musculoskeletal - 5/5 strength, normal range of motion, Neurological Alert and oriented x 3, CN 2-12 grossly intact, no focal deficit Assessment and plan: 49 y/o M with PMH of HTN, DM type II, HLD, obesity s/p bypass surgery admitted for further treatment of right foot cellulitis. Pt was found to have acute on chronic renal failure. Perm catheter was placed on 11/02/19 Right foot cellulitis and abscess s/p stepping on nail 10/22/19 Had bedside I&D on 10/27/19 Xray foot shows There is a fracture at the base of the 5th proximal phalanx. This involves the metatarsophalangeal joint. MRI osteomyelitis Continue Zosyn as per ID infectious diseases recommendations appreciated will f/u with podiatry team stage IV right foot wound Continue antibiotics See above OM right foot will f/u with podiatry team Acute on chronic renal failure Multifactorial due to diabetes, foot infection and medication side effect Nephrology team follows him Had Dialysis yesterday s/p PermaCath placement, wants to f/u [place] Ne[place] Metabolic acidosis. resolved. s/p Sodium bicarbonate drip Hematuria most probably related to traumatic Schroeder placement Continue to monitor Obesity supportive care Chronic anemia mild worsening of chronic anemia will consider PRBC transfusion depending on repeat labs VS, I&O, 24H, Fishbone Vital Signs/I&O Vital Signs Date Time Temp Pulse Resp B/P (MAP) Pulse Ox O2 Delivery O2 Flow Rate FiO2 11/04/19 14:00 98.1 66 18 160/80 (106) 99 Room Air 11/02/19 15:40 2 I&O- Last 24 Hours up to 6 AM 11/04/19 06:00 Intake Total 1370 ml Output Total 600 ml Balance 770 ml Laboratory Data 24H LABS Laboratory Tests 2 11/04/19 05:51: Nucleated Red Blood Cells % (auto) 0.0, Anion Gap 8, Glomerular Filtration Rate 9.8L, Calcium Level 7.4L, Phosphorus Level 4.2#, Total Bilirubin 0.3, Aspartate Amino Transf (AST/SGOT) 20, Alanine Aminotransferase (ALT/SGPT) 15, Alkaline Phosphatase 106, C-Reactive Protein, Quantitative 8.43H, Total Protein 5.4L, Albumin 1.3L, Albumin/Globulin Ratio 0.3 CBC/BMP Laboratory Tests 11/04/19 05:51 Microbiology Microbiology 11/03/19 Gram Stain - Final, Resulted 11/03/19 Wound Culture, Resulted Pending 10/30/19 Blood Culture - Final, Complete NO GROWTH AFTER 5 DAYS 10/30/19 Blood Culture - Final, Complete NO GROWTH AFTER 5 DAYS 10/29/19 Respiratory Virus Panel (PCR) ([facility]) - Final, Complete 10/27/19 Wound Culture - Final, Complete Staphylococcus Aureus ARVIND KENNEDY MD Nov 04, 2019 15:31
--- NOTE | 2019-11-04 15:47 | REP ---
IR Permcath placement. IR Ultrasound of the right neck. IR Permcath insertion under fluoroscopy and ultrasound guidance. IR Moderate sedation. Clinical information: Renal failure. Needs dialysis. Physician: Dr. Kc. Procedure: The patient was advised of the benefits, risks and alternatives of the procedure and informed consent was obtained. The time-out was performed with verification of the patient's name, MRN, site of procedure and type of procedure to be performed. The patient was positioned in the supine position on the angiographic table. The site was prepped and draped in the usual sterile fashion. Moderate sedation was performed by the physician including the presence of an independent trained observer that assisted in monitoring the patient's level of consciousness and physiologic status. Following the administration of fentanyl and Versed , the physician spent 30 minutes of continuous face to face time with the patient. Ultrasound of the right neck reveals a patent and compressible right internal jugular vein. A loan processor radiograph reveals no gross abnormality. The neck and anterior chest wall were anesthetized with lidocaine. The right internal jugular vein was accessed under ultrasound guidance, using a micro introducer needle, via a lateral approach. An 018 cope wire was advanced into the inferior vena cava. Incision at the internal jugular access site and anterior chest wall were made using a scalpel. The needle was removed and the tract was serially dilated under fluoroscopy guidance. A peel away sheath was advanced over the wire under fluoroscopy guidance into the Superior vena cava. The catheter was inserted through the subcutaneous tissues of the chest wall with a tunneling device. The catheter was then advanced through the peel-away sheath under fluoroscopy guidance to the right atrium. The peel-away sheath was removed. The catheter was positioned with the tip in the right atrium. The puncture site was closed. The catheter was secured in place using 2-0 Prolene. Both sites were cleansed and sterile dressings applied. At the conclusion of the procedure, the ports of the catheter aspirate and flush freely. The catheter was locked with high-dose heparin. The patient tolerated the procedure well and was returned to the PRU in stable condition. EBL: < 5 ml. Complications: None. Conclusion: Successful placement of right sided Palindrome Permcath for dialysis. The catheter is ready for immediate use. Thank you this referral. Electronically Signed by April Kc MD 11/04/2019 03:45 P
[2019-11-04] MEDS ORDERED: propofoL 500 MG/50 ML VIAL As Ordered ONE (16:14)
[2019-11-04] MEDS ORDERED: dexameTHASONE 4 MG/ML 1ML VIAL (J1100 PER 1MG) As Ordered ONE (16:14)
[2019-11-04] MEDS ORDERED: ONDANSETRON 4MG/2ML VIAL As Ordered ONE (16:14)
[2019-11-04] MEDS ORDERED: LIDOCAINE 2% 100MG/5ML SDV (FOR ANES.) As Ordered ONE (16:14)
[2019-11-04] MEDS ORDERED: MIDAZOLAM INJ 2MG/2ML VIAL (J2250 PER 1MG) As Ordered ONE (16:14)
[2019-11-04] MEDS ORDERED: fentaNYL 100 MCG/2 ML INJECTION (J3010) As Ordered ONE (16:14)
[2019-11-04] MEDS ORDERED: PERCOCET 5MG/325MG TAB PO PRN (18:00)
[2019-11-04] MEDS ORDERED: NS 1,000 ML IV SCH (18:00)
[2019-11-04] MEDS ORDERED: fentaNYL 100 MCG/2 ML INJECTION (J3010) IV PRN (18:00)
[2019-11-04] MEDS ORDERED: ONDANSETRON 4MG/2ML VIAL IV PRN (18:00)
[2019-11-04] MEDS ORDERED: LABETALOL 100MG/20ML VIAL As Ordered ONE (18:23)
[2019-11-04] MEDS: LABETALOL 100MG/20ML VIAL IV SCH ×3 (18:28→18:40)
[2019-11-04 19:14] VITALS: BP 180/82
[2019-11-04] MEDS: GABAPENTIN 300 MG CAP PO SCH (20:13)
[2019-11-04] MEDS: ATORVASTATIN 20 MG TAB PO SCH (20:13)
[2019-11-04 22:00] VITALS: BP 160/88
[2019-11-04] MEDS: CARVedilol 6.25 MG TAB PO SCH (23:07)
[2019-11-05] VITALS (15 sets, daily range): BP systolic 126–214; BP diastolic 62–118
[2019-11-05] MEDS: **hydrALAZINE** 10 MG TAB PO SCH ×5 (01:10→23:10)
[2019-11-05] MEDS: PIPERACILLIN/TAZOBACTAM SOD 2.25 GM in D5W MINI-BAG PLUS 50 ML IV SCH ×3 (04:46→20:25)
[2019-11-05] MEDS: ENOXAPARIN 40MG/0.4ML SYRINGE (J1650 PER 10MG) SC SCH (05:47)
[2019-11-05] MEDS: CALCIUM/VITAMIN D 500 MG TAB PO SCH ×2 (05:50→20:26)
[2019-11-05] MEDS: FERROUS GLUCONATE 324 MG TAB PO SCH (05:50)
[2019-11-05 06:04] LABS: HEMATOCRIT 21.5 % (42.0-52.0); MEAN CORPUSCULAR HEMOGLOBIN 28.7 pg (27.0-33.0); MEAN CORPUSCULAR HGB CONC 32.6 g/dl (32.0-36.5); MEAN CORPUSCULAR VOLUME 88.1 fl (80.0-96.0); PLATELET COUNT, AUTOMATED 335 10^3/uL (150-450); RED BLOOD COUNT 2.44 10^6/uL (4.30-6.10); WHITE BLOOD COUNT 11.3 10^3/uL (4.0-10.0)
[2019-11-05 06:37] LABS: ALBUMIN 1.2 GM/DL (3.2-5.2); BILIRUBIN,TOTAL 0.2 MG/DL (0.2-1.0); C REACTIVE PROTEIN QUANTITATIV 6.19 MG/DL (0.00-0.30); CALCIUM LEVEL 7.1 MG/DL (8.5-10.1); CREATININE FOR GFR 8.6 MG/DL (0.70-1.30); GLOMERULAR FILTRATION RATE 7.1 (>60); PHOSPHORUS LEVEL 5.3 MG/DL (2.5-4.9); TOTAL PROTEIN 5.1 GM/DL (6.4-8.2)
[2019-11-05] MEDS: LACTOBACILLUS ACIDOPHILUS CAP (BACID) PO SCH ×2 (08:55→17:56)
[2019-11-05] MEDS: (RENVELA) SEVELAMER **CARBONate** 800 MG TAB PO SCH ×3 (08:55→17:56)
[2019-11-05] MEDS: CARVedilol 6.25 MG TAB PO SCH ×2 (08:56→20:26)
[2019-11-05] MEDS: ACETAMINOPHEN TAB 650MG DOSE (2X325MG) PO PRN (13:39)
--- NOTE | 2019-11-05 14:08 | IPNPDOC ---
Date Seen The patient was seen on 11/05/19. Progress Note 49 y/o M was admitted for right foot cellulitis and requiring HD for worsening of CKD. Pt was seen and examined at bedside. No significant event over the night. Saw patient before going to HD Pt stated that he is feeling fine. No new complaint. Physical examination General - not in distress Eyes - PERRLA,oral mucosa moist Neck - supple Cardiovascular - RRR Lungs - Clear to auscultation, no use of accessory muscles, no crackles or wheezes. Skin - No rashes, skin warm and dry, no erythematous areas Abdomen - Normal bowel sounds, abdomen soft and nontender Extremities - The right foot is wrapped in dressing, status post right foot incision and drainage, b/l lower extremities neurovascularly intact Musculoskeletal - 5/5 strength, normal range of motion, Neurological Alert and oriented x 3, CN 2-12 grossly intact, no focal deficit Assessment and plan: 49 y/o M with PMH of HTN, DM type II, HLD, obesity s/p bypass surgery admitted for further treatment of right foot cellulitis. Pt was found to have acute on chronic renal failure. Perm catheter was placed on 11/02/19 1. Right foot cellulitis and abscess s/p stepping on nail 10/22/19 Had bedside I&D on 10/27/19 Xray foot shows There is a fracture at the base of the 5th proximal phalanx. This involves the metatarsophalangeal joint. MRI osteomyelitis Continue Zosyn as per ID will f/u with podiatry team 2. stage IV right foot wound Continue antibiotics See above 3. OM right foot will f/u with podiatry team 4. Acute on chronic renal failure Multifactorial due to diabetes, foot infection and medication side effect Nephrology team follows him Had Dialysis yesterday s/p PermaCath placement, wants to f/u with Nephrology [place] 5. Metabolic acidosis. resolved. s/p Sodium bicarbonate drip 6. Hematuria resolved most probably related to traumatic Schroeder placement Continue to monitor 7. Obesity supportive care 8. Chronic anemia mild worsening of chronic anemia will consider PRBC transfusion depending on repeat labs 9. h/o DM type 2 HbA1c 5.2 blood glucose controlled not an active issue VS, I&O, 24H, Fishbone Vital Signs/I&O Vital Signs Date Time Temp Pulse Resp B/P (MAP) Pulse Ox O2 Delivery O2 Flow Rate FiO2 11/05/19 13:32 152/94 11/05/19 12:15 98.0 65 16 Room Air 11/05/19 08:27 95 11/04/19 17:55 10 I&O- Last 24 Hours up to 6 AM 11/05/19 06:00 Intake Total 900 ml Output Total 100 ml Balance 800 ml Laboratory Data 24H LABS Laboratory Tests 2 11/05/19 05:39: Nucleated Red Blood Cells % (auto) 0.0, Anion Gap 10, Glomerular Filtration Rate 7.1L, Calcium Level 7.1L, Phosphorus Level 5.3#H, Total Bilirubin 0.2, Aspartate Amino Transf (AST/SGOT) 23, Alanine Aminotransferase (ALT/SGPT) 13, Alkaline Phosphatase 104, C-Reactive Protein, Quantitative 6.19H, Total Protein 5.1L, Albumin 1.2L, Albumin/Globulin Ratio 0.3 CBC/BMP Laboratory Tests 11/05/19 05:39 Microbiology Microbiology 11/04/19 Bacterial Culture, Received Pending 11/04/19 Wound Culture, Received Pending 11/03/19 Gram Stain - Final, Resulted 11/03/19 Wound Culture - Preliminary, Resulted Staphylococcus Aureus 10/30/19 Blood Culture - Final, Complete NO GROWTH AFTER 5 DAYS 10/30/19 Blood Culture - Final, Complete NO GROWTH AFTER 5 DAYS 10/29/19 Respiratory Virus Panel (PCR) ([facility]) - Final, Complete 10/27/19 Wound Culture - Final, Complete Staphylococcus Aureus ARVIND KENNEDY MD Nov 05, 2019 14:07
--- NOTE | 2019-11-05 15:28 | IPN ---
DATE OF VISIT: 11/05/2019 Mr. Velasquez is seen this morning on his bedside. He is feeling well and denies any complaints other than ongoing gross hematuria. His urine output has decreased. He denies any nausea, vomiting, dyspnea or chest pain. He did have sutures put in his right foot wound by delivery of shopping news yesterday. On physical exam, temperature 98 degrees Fahrenheit, heart rate 62 per minute and respiratory rate 16 per minute. Blood pressure 157/89 mmHg and oxygen saturation 98% on room air. His head is atraumatic. Neck is supple and without jugular venous distention (JVD) or thyroid enlargement. Hearts sounds are regular and lungs clear to auscultation. Abdomen soft and nontender, and bowel sounds are normal. Extremities without any cyanosis or clubbing. Right foot is wrapped in dressing. Neurologically, he is awake, alert and oriented times three. Today's labs show WBC count 11.3, hemoglobin 7.0 and hematocrit 21.5. Sodium 142, potassium 4.0, CO2 25, BUN 25 and creatinine 8.60. Calcium 7.1 and phosphorus 5.3. PROBLEMS: 1. Acute renal failure superimposed on chronic kidney disease. No improvement in kidney function so far, and patient remains dialysis dependent. He is being dialyzed again this morning. We will not remove any fluid as he does not seem to have any volume overload. We will complete 3-1/2-hours of dialysis treatment. His electrolytes are stable. 2. Anemia. Patient has ongoing gross hematuria with worsening anemia and he will be transfused 2 units of packed red blood cells (RBCs) during dialysis. Patient has consented for transfusion. 3. Right foot wound and cellulitis. Patient did have a MRI, which was positive for osteomyelitis in his foot bones and he remains on antibiotics. At present, he is afebrile and infectious disease is following. 4. Hypertension. Blood pressure is slightly high during dialysis and will need to be monitored closely. We are going to try to remove some fluid during dialysis and see if that will help with his hypertension. Medications will be adjusted after dialysis if needed.
--- NOTE | 2019-11-05 18:18 | RO ---
DATE OF PROCEDURE: 10/29/2019 PREPROCEDURE DIAGNOSIS: Right foot cellulitis, abscess. POSTPROCEDURE DIAGNOSIS: Right foot cellulitis, abscess. PROCEDURE: Right foot incision and drainage. SURGEON: Sanjay Valadze DPM PHYSICIAN AIDE: None. ANESTHESIA: Monitored anesthesia care with preoperative injection of 20 mL of a 1:1 mixture of 1% lidocaine plain and 0.50% Marcaine plain. ESTIMATED BLOOD LOSS: Minimal. MATERIALS: #3-0 nylon. INJECTABLES: None. COMPLICATIONS: None. CONDITION: Stable. Kirby Velasquez is a 49-year-old male who was admitted due to right foot infection following a puncture wound. He had been started on antibiotics without resolution. He had a bedside incision and drainage and has had packing changed without improvement to his redness and has had persisting elevated white blood cell count. Decision was made to bring him to the operating room for incision and drainage. The patient's side and site were identified and marked in the preoperative holding area. Consent was reviewed and obtained. The risks, complications, and alternatives to the procedure were explained to the patient in detail. All questions were answered. DESCRIPTION OF PROCEDURE: The patient was brought to the operating room, placed on the operating room table in supine position, monitored anesthesia care was delivered by the anesthesia team. Preoperative injection of 20 mL of a 1:1 mixture of 1% lidocaine plain and 0.50% Marcaine plain were injected into the right foot. The right foot was prepped and draped in the normal sterile fashion. Tourniquet was applied to the right ankle and inflated to 250 mmHg. The puncture wound was noted to be on the plantar aspect of the 1st metatarsal head. There was significant erythema and edema surrounding this. An incision was made linear fashion distal and proximal to the puncture wound. Significant purulence and fat necrotic tissue was noted. There was purulence extending to the dorsal foot both medially and lateral aspect of the hallux. A rongeur was used to debride the necrotic tissue, and a pulse poly operator was used to irrigate the wound using 3000 mL of normal saline. Following this, the proximal portion of the incision was repaired with #3-0 nylon, and the wound was packed with sterile gauze. The patient was brought to the post-anesthesia care unit (PACU), vital signs stable, neurovascular status intact. He will be readmitted to the floor for continued antibiotics and continued dressing changes. Will follow.
[2019-11-05] MEDS: ATORVASTATIN 20 MG TAB PO SCH (20:26)
[2019-11-05] MEDS: GABAPENTIN 300 MG CAP PO SCH (20:26)
[2019-11-06] MEDS ORDERED: CARVedilol 6.25 MG TAB PO ONE (00:15)
[2019-11-06] MEDS ORDERED: **hydrALAZINE** 10 MG TAB PO ONE (00:15)
[2019-11-06] MEDS: PIPERACILLIN/TAZOBACTAM SOD 2.25 GM in D5W MINI-BAG PLUS 50 ML IV SCH ×3 (04:33→20:23)
[2019-11-06] MEDS: **hydrALAZINE** 10 MG TAB PO SCH ×4 (05:27→23:51)
[2019-11-06 05:55] LABS: HEMATOCRIT 28.1 % (42.0-52.0); MEAN CORPUSCULAR HEMOGLOBIN 28.4 pg (27.0-33.0); MEAN CORPUSCULAR VOLUME 88.6 fl (80.0-96.0); PLATELET COUNT, AUTOMATED 311 10^3/uL (150-450); RED BLOOD COUNT 3.17 10^6/uL (4.30-6.10); WHITE BLOOD COUNT 10.4 10^3/uL (4.0-10.0)
[2019-11-06 06:00] VITALS: BP 150/74
[2019-11-06 06:43] LABS: ALBUMIN 1.4 GM/DL (3.2-5.2); BILIRUBIN,TOTAL 0.3 MG/DL (0.2-1.0); C REACTIVE PROTEIN QUANTITATIV 5.27 MG/DL (0.00-0.30); CALCIUM LEVEL 7.5 MG/DL (8.5-10.1); CREATININE FOR GFR 6.64 MG/DL (0.70-1.30); GLOMERULAR FILTRATION RATE 9.6 (>60); PHOSPHORUS LEVEL 3.7 MG/DL (2.5-4.9); POTASSIUM SERUM 4.1 MEQ/L (3.5-5.1); TOTAL PROTEIN 5.4 GM/DL (6.4-8.2)
[2019-11-06] MEDS: ENOXAPARIN 40MG/0.4ML SYRINGE (J1650 PER 10MG) SC SCH (09:00)
[2019-11-06] MEDS: (RENVELA) SEVELAMER **CARBONate** 800 MG TAB PO SCH ×3 (09:28→17:03)
[2019-11-06] MEDS: CALCITRIOL 0.25 MCG CAP (S0169) PO SCH (09:29)
[2019-11-06] MEDS: CALCIUM/VITAMIN D 500 MG TAB PO SCH ×2 (09:29→20:25)
[2019-11-06] MEDS: LACTOBACILLUS ACIDOPHILUS CAP (BACID) PO SCH ×2 (09:29→17:03)
[2019-11-06] MEDS: CARVedilol 6.25 MG TAB PO SCH ×2 (09:30→20:27)
[2019-11-06] MEDS: FERROUS GLUCONATE 324 MG TAB PO SCH (09:32)
[2019-11-06] MEDS ORDERED: VANCOMYCIN HCL 1,000 MG, VIAL MATE ADAPTER 1 EACH in D5W 250 ML IV SCH ×2 (16:00→16:15)
[2019-11-06] MEDS ORDERED: **VANCO AFTER HD** MISC XX SCH (16:00)
--- NOTE | 2019-11-06 19:37 | IPN ---
DATE: 11/06/2019 Kirby is doing better. He had dialysis yesterday and scheduled to have dialysis tomorrow. He has no complaints. No fever or chills. No nausea, vomiting or diarrhea. He is afebrile. Temperature is 97, pulse 68, respirations 18, blood pressure 150/74, oxygen saturation (O2 sat) 97% on room air. Heart: Normal S1, S2. No murmurs. Lungs are clear. No wheezes, rales or rhonchi. Abdomen: Soft, nontender. Extremities: No edema. Right foot - swollen big toe, erythematous, minimal tenderness. Erythema along the hallux all the way to the interphalangeal joint. There is no purulent discharge her necrotic tissue. There is some skin maceration on the plantar aspect of the foot where the wound is open. There is an incision measuring about 4 cm. The patient has normal range of motion of the joint. LABORATORY DATA: White count 10.4, hemoglobin 9, hematocrit 28.1, platelets 311. Sodium 141, potassium 4.1, chloride 106, bicarb 28, BUN 13, creatinine 6.64, glucose 78, calcium 7.5, phosphorus 3.7, AST 21, ALT 13, alkaline phosphatase 106, CRP down to 5.27 from 13.8. Wound culture from right foot on 10/27/2019 is methicillin-sensitive Staphylococcus aureus (MSSA), 11/03/2019 MSSA and staph aureus, susceptibility pending. I am sure it will be MSSA as well. Bone culture is negative. IMPRESSION: 1. Staphylococcus aureus acute osteomyelitis of the right foot including the big toe The patient has been on IV antibiotics since 10/25/2019, currently day #12. 2. Acute kidney injury on chronic kidney disease, now requiring dialysis. 3. Anemia, on Aranesp and iron, Venofer. PLAN: The patient could be switched to oral cephalexin. I would suggest using 1 gram by mouth at bedtime. That will be for a total of 4-6 weeks depending on clinical improvement. Please check on susceptibilities of staph aureus. If it is MSSA, then I would change him to Keflex 500 mg two tablets at bedtime. The patient will need to follow up at the infectious disease clinic in 2 weeks. If he has MRSA then he could receive IV vancomycin during hemodialysis but my suspicion of this being MRSA is very unlikely. MTDD
--- NOTE | 2019-11-06 19:58 | IPN ---
DATE OF VISIT: 11/06/2019 Patient seen and examined. He denies new complaints. Vital signs are reviewed. He has been afebrile. Labs are reviewed. White blood cell count is 10.4, CRP is 5.27. Culture results: Bone culture shows no growth aerobically, and a wound culture is growing Staphylococcus (staph) aureus thus far. LOWER EXTREMITY EXAMINATION: Erythema and edema are improved. No further purulence is noted. The pathology of the bone is consistent with osteomyelitis. ASSESSMENT: A 49-year-old diabetic male with osteomyelitis, status post incision and drainage. PLAN: He will need [address] Mishra is on board. Final wound culture will likely be available in the next day or two. Continue packing twice daily. He is okay to be partial weightbearing to his foot.
[2019-11-06] MEDS: GABAPENTIN 300 MG CAP PO SCH (20:25)
[2019-11-06] MEDS: ATORVASTATIN 20 MG TAB PO SCH (20:25)
--- NOTE | 2019-11-06 21:27 | IPN ---
DATE: 11/06/2019 Mr. Velasquez is seen this morning on his bedside. He is feeling well today and seems to be in better spirits today. He has been quite depressed since admission. He reports a small amount of urine output and still has some blood in it. He denies any dyspnea, chest pain, nausea or vomiting. PHYSICAL EXAMINATION: Temperature 97.0 degrees Fahrenheit, heart rate 68 per minute and respiratory rate 18 per minute. Blood pressure 154/80 mmHg and oxygen saturation 97% on room air. Head is atraumatic. Neck: Supple and without jugular venous distention (JVD) or thyroid enlargement. Dialysis catheter in right upper chest is intact and without any signs of infection. Heart sounds regular and lungs clear to auscultation. Abdomen: Soft and nontender and bowel sounds are normal. Extremities: Without any cyanosis or clubbing. Right foot is wrapped in dressing. Neurologically, he is awake, alert and oriented times three. Today's labs show WBC count 10.4, hemoglobin 9.0 and hematocrit 28.1. Sodium 141, potassium 4.1, BUN 13 and creatinine 6.64. Calcium 7.5 and phosphorus 3.7. His albumin is 1.4 and total protein 5.4. PROBLEMS: 1. Acute renal failure superimposed on chronic kidney disease. The patient has advanced chronic kidney disease at baseline. He is now oliguric and has been dialysis dependent. We will continue to dialyze him, and he will be scheduled for next dialysis tomorrow. 2. Anemia. His anemia improved following transfusion of 2 units of packed red blood cells (RBCs) yesterday. He continues to have some gross hematuria. 3. Right foot infected wound and osteomyelitis. He is currently being treated with IV antibiotic for osteomyelitis right foot. He is receiving Zosyn 2.25 grams every 8 hours. I have been asked if he can get vancomycin with dialysis as there is anticipation for discharge and outpatient dialysis. We will give him first dose of vancomycin with dialysis tomorrow and then he can continue with outpatient vancomycin 1 gram after each dialysis for 4 weeks. 4. Hypertension. Blood pressure seems reasonably well controlled. Current antihypertensive meds are appropriate and dose can be adjusted if needed. 5. Disposition: From a renal standpoint, the patient can be discharged if he already has an outpatient slot for dialysis and follow up as an outpatient. I will be pleased to provide outpatient nephrology care. The patient has decided to stay with [facility] and not go back to [facility] at this time.
[2019-11-06 22:00] VITALS: BP 168/98
[2019-11-07] MEDS: PIPERACILLIN/TAZOBACTAM SOD 2.25 GM in D5W MINI-BAG PLUS 50 ML IV SCH ×2 (04:10→13:13)
[2019-11-07] MEDS: ENOXAPARIN 40MG/0.4ML SYRINGE (J1650 PER 10MG) SC SCH (05:52)
[2019-11-07] MEDS: **hydrALAZINE** 10 MG TAB PO SCH ×2 (05:53→13:15)
[2019-11-07] MEDS: (RENVELA) SEVELAMER **CARBONate** 800 MG TAB PO SCH ×2 (05:53→13:13)
[2019-11-07] MEDS: LACTOBACILLUS ACIDOPHILUS CAP (BACID) PO SCH (05:54)
[2019-11-07] MEDS: CALCIUM/VITAMIN D 500 MG TAB PO SCH (05:54)
[2019-11-07] MEDS: FERROUS GLUCONATE 324 MG TAB PO SCH (05:54)
[2019-11-07] MEDS: CARVedilol 6.25 MG TAB PO SCH (05:55)
[2019-11-07 06:00] VITALS: BP 180/96
[2019-11-07 06:57] LABS: HEMATOCRIT 30.1 % (42.0-52.0); HEMOGLOBIN 9.6 g/dl (13.5-17.5); MEAN CORPUSCULAR HEMOGLOBIN 28.2 pg (27.0-33.0); MEAN CORPUSCULAR HGB CONC 31.9 g/dl (32.0-36.5); MEAN CORPUSCULAR VOLUME 88.5 fl (80.0-96.0); PLATELET COUNT, AUTOMATED 294 10^3/uL (150-450); WHITE BLOOD COUNT 11.2 10^3/uL (4.0-10.0)
[2019-11-07 07:28] LABS: CREATININE FOR GFR 8.8 MG/DL (0.70-1.30); GLOMERULAR FILTRATION RATE 6.9 (>60); POTASSIUM SERUM 4.2 MEQ/L (3.5-5.1)
[2019-11-07 07:29] LABS: ALBUMIN 1.4 GM/DL (3.2-5.2); BILIRUBIN,TOTAL 0.4 MG/DL (0.2-1.0); C REACTIVE PROTEIN QUANTITATIV 4.4 MG/DL (0.00-0.30); CALCIUM LEVEL 7.8 MG/DL (8.5-10.1); TOTAL PROTEIN 5.6 GM/DL (6.4-8.2)
[2019-11-07 08:09] VITALS: BP 134/78
[2019-11-07] MEDS ORDERED: FERR32TA PO (10:31)
[2019-11-07] MEDS ORDERED: CALC1CAP31 PO (10:31)
[2019-11-07] MEDS ORDERED: HYDR10TAB PO (10:31)
[2019-11-07] MEDS ORDERED: RENV2TAB PO (10:34)
[2019-11-07] MEDS ORDERED: RISATAB3 PO (10:34)
[2019-11-07 12:13] LABS: VANCOMYCIN RANDOM 4.2 UG/ML
[2019-11-07] MEDS: ACETAMINOPHEN TAB 650MG DOSE (2X325MG) PO PRN (13:13)
[2019-11-07 13:15] VITALS: BP 188/98
[2019-11-07 14:00] VITALS: BP 152/82
--- NOTE | 2019-11-07 15:54 | IPNPDOC ---
Date Seen The patient was seen on 11/07/19. Progress Note SUBJECTIVE: Kirby was seen and examined this morning by the nephrology service during his hemodialysis session. He reports very little urine output over the past day, but does state his hematuria has resolved. His last dialysis session was (11/04), which she tolerated well. He continues to remain in decent spirits after seeming quite depressed earlier in the week after admission. He is eating and drinking without any issues, and denies any current or overnight fever, chills, chest pain, shortness breath, palpitations, nausea, or vomiting. OBJECTIVE PHYSICAL EXAMINATION: VITAL SIGNS: Please see below. GENERAL APPEARANCE: Laying in bed, appears stated age, no acute distress. Alert and oriented 3. HEENT: Normocephalic, atraumatic. Noninjected, anicteric sclerae. No conjunctival pallor. PERRLA. Moist mucous membranes. No pharyngeal erythema or exudate. Neck is supple with no thyromegaly, lymphadenopathy, or JVD. RESPIRATORY: Lungs are clear to auscultation bilaterally with no adventitious breath sounds appreciated. Symmetric chest expansion with adequate respiratory effort. Breathing room air. Speaking full sentences. CARDIOVASCULAR: Regular rate, regular rhythm. +S1, S2. No murmurs, rubs or gallops appreciated. No JVD. Negative hepatojugular reflux. 2+ radial and post erior tibial pulses bilaterally. Adequate capillary refill. ABDOMEN: Soft, nondistended and nontender. Normoactive bowel sounds throughout. No guarding or rigidity appreciated. EXTREMITIES: Bilateral lower extremities are free of edema. No clubbing or cyanosis appreciated. NEUROLOGICAL: Awake, alert and oriented 3. No focal neurologic deficits appreciated. Non-dysarthric speech. PSYCHIATRIC: Mood and affect appear appropriate Skin: Warm and dry. Good turgor. No rashes or ulcers appreciated. LN: No significant cervical or supraclavicular lymphadenopathy appreciated. LABORATORY DATA, IMAGING STUDIES, MICROBIOLOGY: Please see below. PROBLEMS: #Acute renal failure superimposed on chronic kidney disease -Patient has CK D stage IV and previously followed with nephrology in [place]. He has been oliguric over the past 24-36 hours and remains dialysis dependent. He is receiving hemodialysis this morning. He has anticipated discharge in the next couple days and should be on track to present as an outpatient to the [facility] on Saturday to begin Saturday, , Saturday scheduled hemodialysis sessions. #Osteomyelitis secondary to infected right foot wound -Continues to receive IV antibiotics for right foot osteomyelitis in the form of Zosyn 2.25 g q8h. he is being followed also by podiatry and infectious disease. The current plan at this point is for a discharge home in the next couple days with outpatient IV vancomycin 1 g administered on days of hemodialysis, which will be Tuesdays, and Saturdays. Patient is aware that he will need to stay for an hour after each hemodialysis session. 2. Have the vancomycin administered. We will continue to follow his vancomycin trough levels while outpatient due to nephrotoxicity risk. He will complete the course of his vancomycin by 11/21/2019. #Anemia -Hemoglobin has been improved over the past 24-48 hours after receiving 2 units of transfused packed red blood cells on 11/04. Hemoglobin was 9.6 this morning. -Continues to receive IV iron and Aranesp coterminously with hemodialysis sessions, as well as scheduled po iron. -He reported his hematuria seems to resolve over the past 24 hours. #Hypertension -Blood pressure was elevated to systolic of 180 early this morning prior to administration of morning antihypertensives and subsequently decreased to systolic 134. He is currently receiving hydralazine and carvedilol. Should his pressure response to these medications diminish, the dosage can be adjusted if needed. #Hyperphosphatemia and hypocalcemia secondary to chronic kidney disease -Continues to receive calcitriol for hypocalcemia, and Renvela for hyperphosphatemia, secondary to CKD. Disposition: Patient will likely be discharged home in the next couple days and will present on Saturday, 11/09 for his first outpatient hemodialysis session. He will undergo Saturday, and Saturday scheduled hemodialysis sessions at our [facility]. He will also receive 1 g of IV vancomycin on his hemodialysis days and will complete the vancomycin administration on 11/21/19. VS, I&O, 24H, Fishbone Vital Signs/I&O Vital Signs Date Time Temp Pulse Resp B/P (MAP) Pulse Ox O2 Delivery O2 Flow Rate FiO2 11/07/19 14:00 97.6 76 18 152/82 (105) 95 Room Air 11/04/19 17:55 10 I&O- Last 24 Hours up to 6 AM 11/07/19 06:00 Intake Total 2430 ml Output Total 0 ml Balance 2430 ml Laboratory Data 24H LABS Laboratory Tests 2 11/07/19 06:08: Nucleated Red Blood Cells % (auto) 0.0, Anion Gap 6L, Glomerular Filtration Rate 6.9L, Calcium Level 7.8L, Total Bilirubin 0.4, Aspartate Amino Transf (AST/SGOT) 21, Alanine Aminotransferase (ALT/SGPT) 12, Alkaline Phosphatase 112, C-Reactive Protein, Quantitative 4.40H, Total Protein 5.6L, Albumin 1.4L, Albumin/Globulin Ratio 0.3, Random Vancomycin Level 4.2 11/07/19 13:05: Methicillin-Resist S.aureus DNA PCR NOT DETECTED CBC/BMP Laboratory Tests 11/07/19 06:08 Microbiology Microbiology 11/04/19 Bacterial Culture - Final, Complete 11/04/19 Wound Culture - Final, Complete Staphylococcus Aureus 11/03/19 Gram Stain - Final, Complete 11/03/19 Wound Culture - Final, Complete Staphylococcus Aureus 10/30/19 Blood Culture - Final, Complete NO GROWTH AFTER 5 DAYS 10/30/19 Blood Culture - Final, Complete NO GROWTH AFTER 5 DAYS 10/29/19 Respiratory Virus Panel (PCR) (AUDIE) - Final, Complete GME ATTESTATION GME ATTESTATION My faculty preceptor for this patient encounter was physically present during the encounter and was fully available. All aspects of the patient interview, examination, medical decision making process, and medical care plan development were reviewed and approved by the faculty preceptor. The faculty preceptor is aware and concurs with the plan as stated in the body of this note and will attest to such by his/her cosignature. ATTENDING NOTE JESSICA on CKD4. Anemia in ESRD Osteomyelitis Rt foot. IDDM. 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 Pt was seen and examined during HD. Tolerating well. Outpatient HD TTS Schedule. Cont vanco 1 gram Q HD for total of 4 week. HD center called. OTONIEL DIAZ D.O. Nov 07, 2019 15:54 SHANNON SALCIDO MD Nov 07, 2019 19:08
--- NOTE | 2019-11-10 15:16 | RO ---
DATE OF SURGERY: 11/04/2019 PREOPERATIVE DIAGNOSIS: Right foot infection in wound. POSTOPERATIVE DIAGNOSIS: Right foot infection in wound. PROCEDURE: Right foot bone biopsy and wound closure. SURGEON: Sanjay Valadez DPM HOP WEIGHER: None. ANESTHESIA: Monitored anesthesia care (MAC), preoperative injection of 10 mL of 1:1 mixture of 1% lidocaine plain with 0.5% Marcaine plain. ESTIMATED BLOOD LOSS: Minimal. MATERIALS: #3-0 nylon. INJECTABLES: None. SPECIMEN: Wound culture, aerobic and anaerobic, and bone biopsy for pathology and aerobic and anaerobic culture. Kirby Velasquez is a 49-year-old male with right foot infection. He has had incision and drainage but has persisting white blood cell count. He was brought to the operating room for bone biopsy based on MRI and for partial wound closure. Patient's side and site were identified and marked in preoperative hold area. Consent was reviewed and obtained. All risks, complications, and alternatives to the procedure were explained to the patient in detail. All questions were answered. DESCRIPTION OF OPERATION: Patient was brought to the operating room, placed on the operating room table in supine position. Monitored anesthesia care was delivered by the anesthesia team. Preoperative injection of 10 mL of 1:1 mixture 1% lidocaine plain and 0.5% Marcaine plain were injected in the right foot. Right foot was prepped and draped in normal sterile fashion. No tourniquet was used during the procedure. Plantar foot was inspected. There remained one area of some necrotic tissue on the plantar aspect of the hallux. The erythema was nearly resolved. The previous incision had no further purulent drainage. Site was irrigated with normal saline. A partial wound closure to the proximal incision was performed with #3-0 nylon. Debridement was performed of the necrotic tissue on the plantar hallux. There was some purulence in this wound as well as some necrotic fat. Aerobic and anaerobic cultures were taken of this fluid. Necrotic tissue was debrided using #15 blade and rongeur. Using a rongeur, a small sample of bone was taken for bone culture and biopsy. Site was irrigated with normal saline. Partial wound closure performed with #3-0 nylon, and remaining wounds were packed with Iodoform packing, and sterile gauze dressings were applied. Patient was brought to post anesthesia care unit (PACU), vital signs stable and neurovascular status intact to be readmitted to the floor. Will follow.
== END 2019-11-07 15:50 | disposition home health service (06) | DRG 317 ==
LOC: M MS5PR 15:40 → M ICU 10-31 12:25 → M MSPAV 11-01 12:16
PROVIDERS: ADMIT Internal Medicine; ATTEND General Practice
PROC: 0HDMXZZ Extraction of Right Foot Skin, External Approach (ICD-10-PCS; principal; 2019-10-27)
PROC: 0QDN0ZZ Extraction of Right Metatarsal, Open Approach (ICD-10-PCS; 2019-10-29)
PROC: 02H733Z Insertion of Infusion Device into Left Atrium, Percutaneous Approach (ICD-10-PCS; 2019-11-02)
PROC: 5A1D70Z Performance of Urinary Filtration, Intermittent, Less than 6 Hours Per Day (ICD-10-PCS; 2019-11-02)
PROC: 0JH63XZ Insertion of Tunneled Vascular Access Device into Chest Subcutaneous Tissue and Fascia, Percutaneous Approach (ICD-10-PCS; 2019-11-02)
PROC: 0YBM0ZX Excision of Right Foot, Open Approach, Diagnostic (ICD-10-PCS; 2019-11-04)
PROC: 30233N1 Transfusion of Nonautologous Red Blood Cells into Peripheral Vein, Percutaneous Approach (ICD-10-PCS; 2019-11-05)
DX: E11.69 Type 2 diabetes mellitus with other specified complication (principal); N17.9 Acute kidney failure, unspecified; E87.2 Acidosis; E11.621 Type 2 diabetes mellitus with foot ulcer; M86.171 Other acute osteomyelitis, right ankle and foot; K91.2 Postsurgical malabsorption, not elsewhere classified; N18.4 Chronic kidney disease, stage 4 (severe); E11.22 Type 2 diabetes mellitus with diabetic chronic kidney disease; L03.115 Cellulitis of right lower limb; E11.42 Type 2 diabetes mellitus with diabetic polyneuropathy; E11.319 Type 2 diabetes mellitus with unspecified diabetic retinopathy without macular edema; L97.518 Non-pressure chronic ulcer of other part of right foot with other specified severity; E83.39 Other disorders of phosphorus metabolism; E88.09 Other disorders of plasma-protein metabolism, not elsewhere classified; I12.9 Hypertensive chronic kidney disease with stage 1 through stage 4 chronic kidney disease, or unspecified chronic kidney disease; D63.1 Anemia in chronic kidney disease; S92.511A Displaced fracture of proximal phalanx of right lesser toe(s), initial encounter for closed fracture; M77.31 Calcaneal spur, right foot; E78.5 Hyperlipidemia, unspecified; K21.9 Gastro-esophageal reflux disease without esophagitis; N04.9 Nephrotic syndrome with unspecified morphologic changes; B95.62 Methicillin resistant Staphylococcus aureus infection as the cause of diseases classified elsewhere; Z98.84 Bariatric surgery status; Z98.49 Cataract extraction status, unspecified eye; Z90.49 Acquired absence of other specified parts of digestive tract; Z87.891 Personal history of nicotine dependence; Z11.59 Encounter for screening for other viral diseases; E66.9 Obesity, unspecified; Z79.899 Other long term (current) drug therapy; Z68.33 Body mass index [BMI] 33.0-33.9, adult; Z99.2 Dependence on renal dialysis; X58.XXXA Exposure to other specified factors, initial encounter; Y92.9 Unspecified place or not applicable

== ENCOUNTER → 2020-01-18 | Outpatient (CLI) | payer OTHER, MEDICAID ==
[~2020-01-18] MED LIST changes: -ASPI81TA85 PO; +ASPI81TA86 PO; +ATOR40TA75 PO; +CALC1CAP31 PO; +CALC250T PO; +CLIN1INJ IV; +CYAN2500 PO; +FERR32TA PO; +FISH1000 PO; +FLINCHW2 PO; +HYDR-3713 PO; +HYDR10TAB PO; +RENV2TAB PO; +RISATAB3 PO; +TORS20TA2; +VANC1PLA6 IV; +ZOSY3INJ2 IV
[2020-01-18 13:15] LABS: HEMATOCRIT 25.9 % (42.0-52.0); HEMOGLOBIN 8.3 g/dl (13.5-17.5); MEAN CORPUSCULAR HEMOGLOBIN 27.9 pg (27.0-33.0); MEAN CORPUSCULAR VOLUME 87.2 fl (80.0-96.0); PLATELET COUNT, AUTOMATED 222 10^3/uL (150-450); RED BLOOD COUNT 2.97 10^6/uL (4.30-6.10); WHITE BLOOD COUNT 8.8 10^3/uL (4.0-10.0)
[2020-01-18 13:33] LABS: CALCIUM LEVEL 8.4 MG/DL (8.5-10.1); CREATININE FOR GFR 4.85 MG/DL (0.70-1.30); GLOMERULAR FILTRATION RATE 13.7 (>60)
== END ==
LOC: M LAB 11:50
PROVIDERS: ATTEND Podiatrist Foot & Ankle Surgery
DX: L02.619 Cutaneous abscess of unspecified foot (principal)

== ENCOUNTER → 2020-01-18 | Outpatient (CLI) | payer OTHER, BC, MEDICAID | LOC: M LABSMTC 12:20 | PROVIDERS: ATTEND Anesthesiology | DX: Z01.812 Encounter for preprocedural laboratory examination (principal); Z20.828 Contact with and (suspected) exposure to other viral communicable diseases | CPT/HCPCS: C9803; U0002 ==

== ENCOUNTER 2020-01-20 12:51 | Day surgery (SDC) | payer OTHER ==
[~2020-01-20] VITALS: Ht 180.3 cm; Wt 97.1 kg
[~2020-01-20 12:51] MED LIST changes: -HYDR-3713 PO; +LR 1,000 ML IV ONE
[2020-01-20] MEDS ORDERED: VANCOMYCIN 1000MG/20ML VIAL As Ordered ONE (13:18)
[2020-01-20] MEDS ORDERED: VANCOMYCIN HCL 1,000 MG, VIAL MATE ADAPTER 1 EACH in D5W 250 ML IV ONE (13:45)
[2020-01-20] MEDS ORDERED: LIDOCAINE 2% 100MG/5ML SDV (FOR ANES.) As Ordered ONE (14:14)
[2020-01-20] MEDS ORDERED: propofoL 200 MG/20 ML VIAL As Ordered ONE (14:14)
[2020-01-20] MEDS ORDERED: MIDAZOLAM INJ 2MG/2ML VIAL (J2250 PER 1MG) As Ordered ONE (14:15)
[2020-01-20] MEDS ORDERED: D5W/0.2% SODIUM CHLORIDE 1,000 ML IV ONE (14:45)
[2020-01-20] MEDS ORDERED: LIDOCAINE 1% MDV 20ML VIAL As Ordered ONE (14:53)
[2020-01-20] MEDS ORDERED: BUPIVACAINE HCL 0.5% 30 ML VIAL As Ordered ONE (14:53)
[2020-01-20] MEDS ORDERED: HYDR-3713 PO (15:50)
[2020-01-20 16:15] VITALS: BP 132/79
--- NOTE | 2020-01-27 08:27 | RO ---
DATE OF SURGERY: 01/20/2020 SURGEON: Sanjay Valadez DPM TAX COMPLIANCE REPRESENTATIVE: None. PREOPERATIVE DIAGNOSIS: Right fourth toe osteomyelitis. POSTOPERATIVE DIAGNOSIS: Right fourth toe osteomyelitis. PROCEDURE: Right fourth toe amputation. ANESTHESIA: Monitored anesthesia care. PREOPERATIVE INJECTION: 10 cc of a one-to-one mixture of 1% lidocaine plain and 0.5% Marcaine plain. ESTIMATED BLOOD LOSS: Minimal. MATERIALS: 3-0 nylon. INJECTABLES: None. SPECIMENS: Right fourth toe. COMPLICATIONS: None. CONDITION: Stable. OPERATIVE INDICATIONS: Mr. Velasquez is a 41-year-old male who presents to [facility] with worsening ulceration and osteomyelitis to his right fourth toe. He presents today for amputation. The patient's side and site were identified and marked in the preoperative area. Consent was reviewed and obtained. The risks, complications, and alternatives to the procedure were explained to the patient in detail and all questions were answered. PROCEDURE: The patient was brought to the operating room and placed on the operating room table in the supine position. Monitored anesthesia care was delivered by the anesthesia team. Preoperative injection of 10 cc of a one-to-one mixture of 1% lidocaine plain and 0.5% Marcaine plain were injected to the right foot. The right foot was prepped and draped in normal sterile fashion. The tourniquet was applied to the right ankle and inflated at 250 mmHg. An elliptical incision was made around the right fourth toe and excised full- thickness with a #15 blade. The toe was disarticulated at the metatarsophalangeal joint capsule. The proximal phalanx was fractured and necrotic in appearance. The metatarsal head appeared free of infection. The site was irrigated with normal saline. Some debridement of nonviable tissue was performed, so it was again irrigated. The incision was repaired with 3-0 nylon. The fourth toe was sent for pathology. Sterile dressings were applied. The tourniquet was deflated. The patient was brought to the PACU with vital signs stable and neurovascular status intact. He will be weightbearing as tolerated and follow up in the office in two days. MARIAM
== END 2020-01-20 16:15 | disposition home or self-care (01) ==
LOC: M SDC 12:51
PROVIDERS: ATTEND Podiatrist Foot & Ankle Surgery
DX: M86.171 Other acute osteomyelitis, right ankle and foot (principal); I10 Essential (primary) hypertension; E78.5 Hyperlipidemia, unspecified; E11.22 Type 2 diabetes mellitus with diabetic chronic kidney disease; K21.9 Gastro-esophageal reflux disease without esophagitis; I15.0 Renovascular hypertension; N18.4 Chronic kidney disease, stage 4 (severe); B95.61 Methicillin susceptible Staphylococcus aureus infection as the cause of diseases classified elsewhere; Z79.899 Other long term (current) drug therapy
CPT/HCPCS: 28820; 36415; 84132; 88305; 88311; J2250; J3370

== ENCOUNTER → 2020-01-20 | Outpatient (REF) | payer OTHER ==
[2020-01-20 18:15] LABS: ALBUMIN 2.7 GM/DL (3.2-5.2); CALCIUM LEVEL 8.5 MG/DL (8.5-10.1); CREATININE FOR GFR 5.08 MG/DL (0.70-1.30); PHOSPHORUS LEVEL 4.7 MG/DL (2.5-4.9); POTASSIUM SERUM 4.1 MEQ/L (3.5-5.1)
[2020-01-20 18:49] LABS: CREATININE, SERUM 5.1 MG/DL (0.6-1.3)
[2020-01-20 19:00] LABS: CREATININE CLEARANCE, URINE 24.9 ML/MIN (85-125)
== END ==
LOC: M LAB REF 17:08
PROVIDERS: ATTEND Internal Medicine Nephrology
DX: N17.9 Acute kidney failure, unspecified (principal); Z99.2 Dependence on renal dialysis; E11.22 Type 2 diabetes mellitus with diabetic chronic kidney disease

== ENCOUNTER → 2020-02-12 | Outpatient (REF) | payer OTHER ==
[~2020-02-12] MED LIST changes: +HYDR-3713 PO; -LR 1,000 ML IV ONE
== END ==
LOC: M LAB REF 17:01
PROVIDERS: ATTEND Internal Medicine Nephrology
DX: D50.0 Iron deficiency anemia secondary to blood loss (chronic) (principal)

== ENCOUNTER 2020-02-13 10:58 | Outpatient (CLI) | payer OTHER ==
[2020-02-13] VITALS (10 sets, daily range): BP systolic 130–166; BP diastolic 63–96
[2020-02-13] MEDS ORDERED: diphenhydrAMINE 25MG CAP PO ONE (12:00)
[2020-02-13] MEDS ORDERED: FUROSEMIDE 100MG/10ML VIAL (J1940) IV ONE (15:00)
== END 2020-02-13 18:25 | disposition home or self-care (01) ==
LOC: M OPCLI5PR 10:58 → M MS5PR 11:10 → M OPCLI5PR 18:25
PROVIDERS: ATTEND Internal Medicine Nephrology
DX: D50.0 Iron deficiency anemia secondary to blood loss (chronic) (principal)
CPT/HCPCS: 36430; 96374; J1940; P9016

== ENCOUNTER → 2020-02-26 | Outpatient (REF) | payer OTHER | LOC: M LAB REF 12:21 | PROVIDERS: ATTEND Podiatrist Foot & Ankle Surgery | DX: L03.031 Cellulitis of right toe (principal) ==

== ENCOUNTER → 2020-04-28 | Outpatient (CLI) | payer OTHER | LOC: M LAB 13:48 | PROVIDERS: ATTEND Internal Medicine Nephrology | DX: N18.6 End stage renal disease (principal); D63.1 Anemia in chronic kidney disease ==

== ENCOUNTER 2020-04-29 13:38 | Outpatient (CLI) | payer OTHER ==
[~2020-04-29] VITALS: Ht 180.3 cm; Wt 96.4 kg
[2020-04-29 13:50] VITALS: BP 129/65
[2020-04-29 14:45] VITALS: BP 113/56
[2020-04-29 15:45] VITALS: BP 129/70
[2020-04-29 16:05] VITALS: BP 162/89
== END 2020-04-29 16:10 | disposition home or self-care (01) ==
LOC: M INFU 13:38
PROVIDERS: ATTEND Internal Medicine Nephrology
DX: N18.6 End stage renal disease (principal); D63.1 Anemia in chronic kidney disease
CPT/HCPCS: 36430; P9016

== ENCOUNTER → 2020-05-16 | Outpatient (REF) | payer OTHER ==
[~2020-05-16] MED LIST changes: +GABA-282 PO; -GABA-843 PO; +LASI80TA3 PO; -LISI-538 PO; +LISI20TA33 PO
== END ==
LOC: M LAB REF 17:18
PROVIDERS: ATTEND Internal Medicine Nephrology
DX: N18.6 End stage renal disease (principal); D63.1 Anemia in chronic kidney disease

== ENCOUNTER → 2020-05-17 | Outpatient (REF) | payer OTHER ==
[~2020-05-17] MED LIST changes: +LISI-538 PO; -LISI20TA33 PO
== END ==
LOC: M LAB REF 16:52
PROVIDERS: ATTEND Internal Medicine Nephrology
DX: D50.0 Iron deficiency anemia secondary to blood loss (chronic) (principal)

== ENCOUNTER 2020-05-18 08:00 | Outpatient (CLI) | payer OTHER ==
[~2020-05-18] VITALS: Ht 180.3 cm; Wt 96.4 kg
[2020-05-18] VITALS (7 sets, daily range): BP systolic 128–178; BP diastolic 72–99
[~2020-05-18 08:00] MED LIST changes: +ACETAMINOPHEN 325 MG TAB PO ONE; -LASI80TA3 PO; -LISI-538 PO; +LISI20TA33 PO; +diphenhydrAMINE 25MG CAP PO SCH
[2020-05-18] MEDS ORDERED: LASI80TA3 PO (08:27)
[2020-05-18] MEDS ORDERED: ATOR40TA75 PO (08:28)
== END 2020-05-18 13:00 | disposition home or self-care (01) ==
LOC: M INFU 08:00
PROVIDERS: ATTEND Internal Medicine Nephrology
DX: N18.6 End stage renal disease (principal); D63.1 Anemia in chronic kidney disease
CPT/HCPCS: 36430; P9016

== ENCOUNTER → 2020-09-21 | Outpatient (CLI) | payer MEDICARE, OTHER ==
[~2020-09-21] MED LIST changes: -ACETAMINOPHEN 325 MG TAB PO ONE; +CALC667T2 PO; +CITRTAB16 PO; +FAMO20TA5 PO; +LASI80TA3 PO; +PANT40TA29 PO; -diphenhydrAMINE 25MG CAP PO SCH
== END ==
LOC: M LABSMTC 10:28
PROVIDERS: ATTEND Anesthesiology
DX: Z01.818 Encounter for other preprocedural examination (principal); Z11.52 Encounter for screening for COVID-19

== ENCOUNTER 2020-09-26 11:33 | Day surgery (SDC) | payer MEDICARE, OTHER ==
[~2020-09-26] VITALS: Ht 180.3 cm; Wt 102.1 kg
[~2020-09-26 11:33] MED LIST changes: -CITRTAB16 PO; -FAMO20TA5 PO; +NS 1,000 ML IV ONE
[2020-09-26] MEDS ORDERED: fentaNYL 100 MCG/2 ML INJECTION (J3010) As Ordered ONE (13:41)
[2020-09-26] MEDS ORDERED: propofoL 200 MG/20 ML VIAL As Ordered ONE (13:57)
[2020-09-26] MEDS ORDERED: LIDOCAINE 2% 100MG/5ML SDV (FOR ANES.) As Ordered ONE (13:57)
[2020-09-26 14:45] VITALS: BP 156/87
--- NOTE | 2020-09-26 14:53 | ROOR ---
Patient Name: Kirby Velasquez Procedure Date: 09/26/2020 1:53 PM Date of : 1970 Age: 50 Room: [facility] Gender: Male Note Status: Finalized Procedure: Upper GI endoscopy Indications: Unexplained iron deficiency anemia Providers: Jose Queen MD Referring MD: Curt Quiñones MD Requesting Provider: Medicines: Monitored Anesthesia Care Complications: No immediate complications. Procedure: Pre-Anesthesia Assessment: - Prior to the procedure, a History and Physical was performed, and patient medications and allergies were reviewed. The patient is competent. The risks and benefits of the procedure and the sedation options and risks were discussed with the patient. All questions were answered and informed consent was obtained. Patient identification and proposed procedure were verified by the physician, the nurse and the anesthesiologist in the procedure room. Mental Status Examination: alert and oriented. Airway Examination: normal oropharyngeal airway and neck mobility. Respiratory Examination: clear to auscultation. CV Examination: normal. Prophylactic Antibiotics: The patient does not require prophylactic antibiotics. Prior Anticoagulants: The patient has taken no previous anticoagulant or antiplatelet agents. ASA Grade Assessment: II - A patient with mild systemic disease. After reviewing the risks and benefits, the patient was deemed in satisfactory condition to undergo the procedure. The anesthesia plan was to use monitored anesthesia care (MAC). Immediately prior to administration of medications, the patient was re-assessed for adequacy to receive sedatives. The heart rate, respiratory rate, oxygen saturations, blood pressure, adequacy of pulmonary ventilation, and response to care were monitored throughout the procedure. The physical status of the patient was re-assessed after the procedure. The Endoscope was introduced through the mouth, and advanced to the second part of duodenum. The upper GI endoscopy was accomplished without difficulty. The patient tolerated the procedure well. Findings: The examined esophagus was normal. The Z-line was regular and was found at the gastroesophageal junction. Evidence of a Uday-en-Y gastrojejunostomy was found. The gastrojejunal anastomosis was characterized by congestion, erosion, friable mucosa and inflammation. This was traversed. The jejunojejunal anastomosis was characterized by erosion, erythema and friable mucosa. The jzeydgiq-so-wcgaqcf limb was not examined as it could not be found. Two biopsies were obtained at the anastomosis with cold forceps for histology. Verification of patient identification for the specimen was done by the physician and nurse using the patient's name, date and medical record number. Estimated blood loss was minimal. Normal mucosa was found in the jejunum. Impression: - Normal esophagus. - Z-line regular, at the gastroesophageal junction. - Uday-en-Y gastrojejunostomy with gastrojejunal anastomosis characterized by congestion, erosion, friable mucosa and inflammation. - Normal mucosa was found in the jejunum. - Two biopsies were obtained at the anastomosis. Recommendation: - Patient has a contact number available for emergencies. The signs and symptoms of potential delayed complications were discussed with the patient. Return to normal activities tomorrow. Written discharge instructions were provided to the patient. - Anti-acid reflux diet -- small meals, sit upright atleast 1 hour after meals, avoid fatty/ oily foods and avoid foods that cause reflux. - Post gastric bypass diet (small frequent meals and avoid fatty/ fried foods). - Continue present medications. - Use Pepcid (famotidine) 20 mg PO Twice daily ( take healthcare marketer on empty stomach and at bedtime) for 6 weeks. - Await pathology results. - Check with Clinic for the stool lab, form to be done prior to clinic appointment. - Return to GI clinic in [facility] (address [address], [address], [place], [facility]) in 4 -- 6 weeks. Please call GI clinic @ [phone] for apppointment date and time. - Return to primary care physician. Procedure Code(s): --- Professional --- 16488, Esophagogastroduodenoscopy, flexible, transoral; with biopsy, single or multiple Diagnosis Code(s): --- Professional --- Z98.0, Intestinal bypass and anastomosis status D50.9, Iron deficiency anemia, unspecified CPT copyright 2019 [employer]. All rights reserved. The codes documented in this report are preliminary and upon internet sales representative review may be revised to meet current compliance requirements. Jose Queen MD Jose Queen MD 09/26/2020 2:52:41 PM Electronically signed by Jose Queen MD Number of Addenda: 0 Note Initiated On: 09/26/2020 1:53 PM Estimated Blood Loss: Estimated blood loss was minimal.
== END 2020-09-26 15:00 | disposition home or self-care (01) ==
LOC: M OPP 11:33
PROVIDERS: ATTEND Internal Medicine Gastroenterology
DX: K29.70 Gastritis, unspecified, without bleeding (principal); Z98.0 Intestinal bypass and anastomosis status; D50.9 Iron deficiency anemia, unspecified; Z79.899 Other long term (current) drug therapy; Z87.891 Personal history of nicotine dependence
CPT/HCPCS: 36415; 43239; 84132; 88305; J3010

== ENCOUNTER → 2020-11-01 | Outpatient (CLI) | payer MEDICARE, OTHER ==
[~2020-11-01] MED LIST changes: +CITRTAB16 PO; +FAMO20TA5 PO; -NS 1,000 ML IV ONE
--- NOTE | 2020-11-01 09:36 | REP ---
INDICATION: PER OP KIDNEY TRANSPLANT- CT AFTER COMPARISON: 07/30/2012 TECHNIQUE: Real time B-mode diehl scale ultrasound examination using curved array transducer. FINDINGS: Liver, spleen, and visualized portions of the pancreas are normal in contour, size, echogenicity, and overall appearance. No focal hepatic, splenic or pancreatic lesions are identified. Gallbladder demonstrates layering sludge without wall thickening or pericholecystic fluid. No biliary ductal dilatation is appreciated and the common bile duct measures 5 mm in diameter. The bilateral kidneys are normal in reniform shape without hydronephrosis or obvious abnormality. Right kidney measures 11.0 x 5.2 x 5.6 cm. Left kidney measures 11.7 x 5.6 x 4.7 cm. No ascites. IMPRESSION: 1. Gallbladder demonstrates moderate sludge. 2. Otherwise essentially normal complete abdominal ultrasound. <Electronically signed by Catalino Brice > 11/01/20 0932
--- NOTE | 2020-11-01 11:18 | REP ---
INDICATION: PER OP KIDNEY TRANSPLANT- US FIRST COMPARISON: None TECHNIQUE: Axial noncontrast images from the thoracic inlet to the upper abdomen with coronal and sagittal reformations. This CT examination was performed using the following dose reduction techniques: Automated exposure control, adjustment of mA and/or kv according to the patient's size, and use of iterative reconstruction technique. FINDINGS: The bilateral lung regalado are well aerated and clear. No consolidation, suspicious nodule or mass. No effusion. No pneumothorax. Tracheobronchial tree is patent. No significant adenopathy. Mediastinum demonstrates atherosclerotic changes to the thoracic aorta and coronary arteries without aortic aneurysm. No cardiomegaly or pericardial effusion. Limited upper abdomen demonstrates prior gastric bypass surgery and normal bilateral adrenal glands. Surrounding musculoskeletal structures are intact. IMPRESSION: No acute mediastinal or pleuroparenchymal process appreciated. <Electronically signed by Catalino Brice > 11/01/20 [id number]
== END ==
LOC: M RAD 08:29
PROVIDERS: ATTEND Nurse Practitioner Family
DX: Z01.818 Encounter for other preprocedural examination (principal); N18.6 End stage renal disease

== ENCOUNTER → 2020-11-03 | Outpatient (CLI) | payer MEDICARE, OTHER | LOC: M LABSMTC 11:02 | PROVIDERS: ATTEND Anesthesiology | DX: Z01.818 Encounter for other preprocedural examination (principal); Z11.52 Encounter for screening for COVID-19 ==

== ENCOUNTER 2020-11-08 07:01 | Day surgery (SDC) | payer MEDICARE, OTHER ==
[~2020-11-08] VITALS: Ht 180.3 cm; Wt 97.6 kg
[~2020-11-08 07:01] MED LIST changes: +D5W/0.2% SODIUM CHLORIDE 1,000 ML IV ONE; +LIDOCAINE 1% MDV 20ML VIAL SQ PRN; +VANCOMYCIN HCL 1,000 MG, VIAL MATE ADAPTER 1 EACH in NS 250 ML IV ONE
[2020-11-08] MEDS ORDERED: VANCOMYCIN 1000MG/20ML VIAL As Ordered ONE (07:09)
[2020-11-08] MEDS ORDERED: MIDAZOLAM INJ 2MG/2ML VIAL (J2250 PER 1MG) As Ordered ONE (08:22)
[2020-11-08] MEDS ORDERED: propofoL 200 MG/20 ML VIAL As Ordered ONE ×2 (08:22→08:23)
[2020-11-08] MEDS ORDERED: LIDOCAINE 2% INJ 100 MG/5 ML SYRINGE As Ordered ONE (08:22)
[2020-11-08] MEDS ORDERED: ROCURONIUM BROMIDE 50 MG/5 ML VIAL As Ordered ONE ×2 (08:22→09:51)
[2020-11-08] MEDS ORDERED: fentaNYL 250 MCG/5 ML INJECTION (J3010) As Ordered ONE (08:22)
[2020-11-08] MEDS ORDERED: LIDOCAINE 1% SDV 30ML VIAL As Ordered ONE (09:07)
[2020-11-08] MEDS ORDERED: HEPARIN SOD (PORCINE) 5000UNITS/ML 1ML VIAL/SYRINGE As Ordered ONE ×2 (09:07→09:40)
[2020-11-08] MEDS ORDERED: BUPIVACAINE HCL 0.25% 30ML VIAL As Ordered ONE (09:40)
[2020-11-08] MEDS ORDERED: PHENYLephrine 500MCG 5ML (100MCG/ML) SYRINGE As Ordered ONE (09:51)
[2020-11-08] MEDS ORDERED: ONDANSETRON 4MG/2ML VIAL As Ordered ONE (10:31)
[2020-11-08] MEDS ORDERED: SUGAMMADEX SODIUM 500 MG/5 ML VIAL (BRIDION) As Ordered ONE (10:31)
[2020-11-08] MEDS ORDERED: dexameTHASONE 4 MG/ML 1ML VIAL (J1100 PER 1MG) As Ordered ONE (10:31)
[2020-11-08] MEDS ORDERED: LR 1,000 ML IV SCH (11:35)
[2020-11-08] MEDS ORDERED: ONDANSETRON 4MG/2ML VIAL IV PRN (11:35)
[2020-11-08] MEDS ORDERED: oxyCODONE 5MG TAB PO PRN (11:35)
[2020-11-08] MEDS ORDERED: MORPHINE 2 MG/ML 1ML VIAL (J2270) IV PRN (11:35)
[2020-11-08] MEDS ORDERED: METOCLOPRAMIDE INJ 10MG/2ML VIAL (J2765 PER 1) IV PRN (11:35)
[2020-11-08] MEDS ORDERED: fentaNYL 100 MCG/2 ML INJECTION (J3010) IV PRN (11:35)
[2020-11-08] MEDS ORDERED: ACETAMINOPHEN TAB 650MG DOSE (2X325MG) PO PRN (11:40)
[2020-11-08] MEDS ORDERED: NORCO, ANEXSIA 5/325MG TABLET (HYDROcodone/ACETAMINOPHEN) PO PRN (11:40)
[2020-11-08 13:15] VITALS: BP 142/87
--- NOTE | 2020-11-09 18:52 | RO ---
OPERATIVE NOTE DATE OF OPERATION: 11/08/2020 PREOPERATIVE DIAGNOSIS: Progressive renal failure at end stage. POSTOPERATIVE DIAGNOSIS: Progressive renal failure at end stage and intra-abdominal adhesions secondary to prior surgery. PROCEDURE PERFORMED: Laparoscopy with lysis of adhesions and insertion of a continuous ambulatory peritoneal dialysis catheter. SURGEON: Enrrique Hernadez MD BISQUE FINISHER: ANESTHESIA: General INDICATIONS FOR THE PROCEDURE: The patient is a 50-year-old man who has progressive renal failure now at end stage. He is on hemodialysis via a catheter and is for placement of a CAPD catheter. He has undergone previous colectomy with a temporary colostomy and subsequent reversal as well as a gastric bypass. He is for laparoscopy with possible lysis of adhesions and placement of his CAPD catheter. OPERATIVE PROCEDURE: The patient was brought to the operating room and placed on the table in a supine position. He was placed under general endotracheal anesthesia. The patient's abdomen was prepped and draped in a sterile fashion. 1/4% Marcaine was infiltrated at the trocar sites and incisions as necessary. A short longitudinal incision was made in the left paramedian position in the left upper quadrant. A Veress needle was inserted and after a positive hanging drop test, the abdomen was insufflated with carbon dioxide gas. A 5 mm port was placed over a 5 mm scope and advanced through the abdominal wall without difficulty. The laparoscope was inserted and the abdomen was inspected. The liver appeared normal. There were some adhesive bands of some omentum and a portion of the colon to the anterior abdominal wall at the site of his previous colostomy in the left mid-abdomen. There was a minimal amount of bleeding from the initial trocar site which stopped. A second 5 mm port was placed farther lateral in the left upper quadrant. A cauterizing scissor was inserted and the adhesions of the colon to the anterior abdominal wall were lysed to free this completely. Hemostasis was excellent. I elected to place the dialysis catheter through the initial trocar site. The abdomen was deflated. The skin incision was extended to approximately 3 cm and the port was removed. The rectus muscle fibers were spread and the posterior fascia was identified. A purse-string suture of 2-0 Vicryl was placed in the posterior fascia of the rectus sheath. The 62 cm double-pledgeted Larry dialysis catheter was then inserted into the abdomen over a long stylet directed to the left lower quadrant. The purse-string suture was tied down. The inner pledget was placed against the posterior sheath of the rectus and the rectus muscles were allowed to fall together about the pledget. The anterior rectus sheath was closed with a running suture of 1-0 Vicryl. The catheter was then tunneled through the subcutaneous tissues in a gentle arc extended superiorly and laterally and inferiorly to exit through a small stab wound in the skin. The second pledget was placed just beneath the skin. The infusion adaptor was attached to the catheter. Once liter of saline was then infused through the catheter without difficulty. The patient was tilted to a slight reverse Trendelenburg position. The camera was inserted through the lateral port and the catheter was noted to be appropriately lying in the left lower quadrant to top some loops of bowel in this area. The abdomen was then deflated. There was return of some of the fluid through the dialysis catheter by gravity siphon though the return was certainly incomplete. The catheter was they filled with 1 cc of 5000 units per cc heparin and approximately 1.4 cc of sterile saline. The catheter was plugged and a small compression clamp was applied. The reaming port was removed. Some additional 1/4% Marcaine was infiltrated about the insertion site. The incision was closed with buried 3-0 Chromic and 4-0 Vicryl in the skin and the other trocar site was closed with 4-0 Vicryl. Steri-Strips were applied. A CHG Opsite was placed over the catheter exit site which covered the other Steri-Stripped incision as well. The catheter was coiled beneath a gauze pad held in place with tape. The patient tolerated the procedure well without apparent complication. He was awakened in the operating room, extubated and transported to the recovery room in stable condition.
== END 2020-11-08 13:37 | disposition home or self-care (01) ==
LOC: M SDC 07:01
PROVIDERS: ATTEND Surgery
DX: N18.6 End stage renal disease (principal); K66.0 Peritoneal adhesions (postprocedural) (postinfection); E11.9 Type 2 diabetes mellitus without complications; D64.9 Anemia, unspecified; E78.5 Hyperlipidemia, unspecified; Z79.899 Other long term (current) drug therapy; Z98.84 Bariatric surgery status
CPT/HCPCS: 36415; 49329; 49421; 84132; C1750; J1100; J1644; J2250; J2370; J2405; J3010; J3370

== ENCOUNTER → 2020-11-30 | Outpatient (CLI) | payer MEDICARE, OTHER ==
[~2020-11-30] MED LIST changes: -D5W/0.2% SODIUM CHLORIDE 1,000 ML IV ONE; -LIDOCAINE 1% MDV 20ML VIAL SQ PRN; -VANCOMYCIN HCL 1,000 MG, VIAL MATE ADAPTER 1 EACH in NS 250 ML IV ONE
== END ==
LOC: M LABSMTC 11:05
PROVIDERS: ATTEND Anesthesiology
DX: Z01.818 Encounter for other preprocedural examination (principal); Z11.52 Encounter for screening for COVID-19

== ENCOUNTER → 2020-12-04 | Outpatient (CLI) | payer MEDICARE, OTHER ==
[2020-12-04 12:04] LABS: BASO # 0.1 10^3/uL (0.0-0.2); BASO % 1.1 % (0.0-1.0); EOS # 0.3 10^3/uL (0.0-0.5); EOS % 3.9 % (0.0-3.0); HEMATOCRIT 37.7 % (42.0-52.0); HEMOGLOBIN 11.7 g/dl (13.5-17.5); LYMPH # 2.5 10^3/uL (1.5-5.0); LYMPH % 31.1 % (24.0-44.0); MEAN CORPUSCULAR HEMOGLOBIN 28.3 pg (27.0-33.0); MEAN CORPUSCULAR VOLUME 91.1 fl (80.0-96.0); MONO # 0.4 10^3/uL (0.0-0.8); MONO % 4.7 % (2.0-8.0); NEUTROPHILS # 4.6 10^3/uL (1.5-8.5); NEUTROPHILS % 58.6 % (36.0-66.0); PLATELET COUNT, AUTOMATED 178 10^3/uL (150-450); RED BLOOD COUNT 4.14 10^6/uL (4.30-6.10); WHITE BLOOD COUNT 7.9 10^3/uL (4.0-10.0)
[2020-12-04 12:37] LABS: CALCIUM LEVEL 7.3 MG/DL (8.5-10.1); CREATININE FOR GFR 11.1 MG/DL (0.70-1.30); GLOMERULAR FILTRATION RATE 5.3 (>60); PERCENT SATURATION 55.2 % (19.7-50.0); POTASSIUM SERUM 4.6 MEQ/L (3.5-5.1)
== END ==
LOC: M LAB 11:45
PROVIDERS: ATTEND Internal Medicine Gastroenterology
DX: Z12.11 Encounter for screening for malignant neoplasm of colon (principal); D50.9 Iron deficiency anemia, unspecified

== ENCOUNTER 2020-12-05 06:25 | Day surgery (SDC) | payer MEDICARE, OTHER ==
[~2020-12-05] VITALS: Ht 180.3 cm; Wt 101.6 kg
[~2020-12-05 06:25] MED LIST changes: +NS 1,000 ML IV ONE
[2020-12-05] MEDS ORDERED: LIDOCAINE 2% 100MG/5ML SDV (FOR ANES.) As Ordered ONE (07:00)
[2020-12-05] MEDS ORDERED: propofoL 200 MG/20 ML VIAL As Ordered ONE (07:00)
--- NOTE | 2020-12-05 08:10 | ROOR ---
Patient Name: Kirby Velasquez Procedure Date: 12/05/2020 7:31 AM Date of : 1970 Age: 50 Room: [facility] Gender: Male Note Status: Finalized Procedure: Colonoscopy Indications: Screening for colorectal malignant neoplasm Providers: Jose Queen MD Referring MD: Christiano Manzano, Curt Quiñones MD Requesting Provider: Medicines: Monitored Anesthesia Care Complications: No immediate complications. Procedure: Pre-Anesthesia Assessment: - Prior to the procedure, a History and Physical was performed, and patient medications and allergies were reviewed. The patient is competent. The risks and benefits of the procedure and the sedation options and risks were discussed with the patient. All questions were answered and informed consent was obtained. Patient identification and proposed procedure were verified by the physician, the nurse and the anesthesiologist in the procedure room. Mental Status Examination: normal. Airway Examination: normal oropharyngeal airway and neck mobility. Respiratory Examination: clear to auscultation. CV Examination: normal. Prophylactic Antibiotics: The patient does not require prophylactic antibiotics. Prior Anticoagulants: The patient has taken no previous anticoagulant or antiplatelet agents. ASA Grade Assessment: III - A patient with severe systemic disease. After reviewing the risks and benefits, the patient was deemed in satisfactory condition to undergo the procedure. The anesthesia plan was to use monitored anesthesia care (MAC). Immediately prior to administration of medications, the patient was re-assessed for adequacy to receive sedatives. The heart rate, respiratory rate, oxygen saturations, blood pressure, adequacy of pulmonary ventilation, and response to care were monitored throughout the procedure. The physical status of the patient was re-assessed after the procedure. The Colonoscope was introduced through the anus and advanced to the terminal ileum, with identification of the appendiceal orifice and IC valve. The colonoscopy was performed without difficulty. The patient tolerated the procedure well. The quality of the bowel preparation was adequate to identify polyps 6 mm and larger in size and fair. The terminal ileum, ileocecal valve, appendiceal orifice, and rectum were photographed. Scope insertion time was 3 minutes. Scope withdrawal time was 11 minutes. The total duration of the procedure was 15 minutes. Findings: The perianal and digital rectal examinations were normal. The terminal ileum appeared normal. Multiple small and large-mouthed diverticula were found from sigmoid to descending colon. There was no evidence of diverticular bleeding. Non-bleeding external and internal hemorrhoids were found during retroflexion. The hemorrhoids were medium-sized. A moderate amount of semi-liquid semi-solid stool was found from rectum to cecum, making visualization difficult. Lavage of the area was performed using a large amount of sterile water, resulting in clearance with good visualization. Impression: - Preparation of the colon was fair. - The examined portion of the ileum was normal. - Moderate diverticulosis from sigmoid to descending colon. There was no evidence of diverticular bleeding. - Non-bleeding external and internal hemorrhoids. - Stool from rectum to cecum. - No specimens collected. Recommendation: - Patient has a contact number available for emergencies. The signs and symptoms of potential delayed complications were discussed with the patient. Return to normal activities tomorrow. Written discharge instructions were provided to the patient. - High fiber diet and low sodium diet. - Continue present medications. - Repeat colonoscopy in 10 years for screening purposes. - Return to GI clinic if persistent symptoms or new symptoms. - Return to primary care physician. Procedure Code(s): --- Professional --- 08837, Colonoscopy, flexible; diagnostic, including collection of specimen(s) by brushing or washing, when performed (separate procedure) Diagnosis Code(s): --- Professional --- Z12.11, Encounter for screening for malignant neoplasm of colon K64.8, Other hemorrhoids K57.30, Diverticulosis of large intestine without perforation or abscess without bleeding CPT copyright 2019 [employer]. All rights reserved. The codes documented in this report are preliminary and upon braille coder review may be revised to meet current compliance requirements. Jose Queen MD Jose Queen MD 12/05/2020 8:09:55 AM Electronically signed by Jose Queen MD Number of Addenda: 0 Note Initiated On: 12/05/2020 7:31 AM Estimated Blood Loss: Estimated blood loss: none.
[2020-12-05 08:15] VITALS: BP 169/97
== END 2020-12-05 08:21 | disposition home or self-care (01) ==
LOC: M OPP 06:25
PROVIDERS: ATTEND Internal Medicine Gastroenterology
DX: Z12.11 Encounter for screening for malignant neoplasm of colon (principal); K57.30 Diverticulosis of large intestine without perforation or abscess without bleeding; K64.8 Other hemorrhoids; Z79.899 Other long term (current) drug therapy; Z87.891 Personal history of nicotine dependence; Z98.84 Bariatric surgery status
CPT/HCPCS: 36415; 84132; G0121

== ENCOUNTER → 2020-12-08 | Outpatient (REF) | payer MEDICARE, OTHER ==
[~2020-12-08] MED LIST changes: -NS 1,000 ML IV ONE
[2020-12-08 14:36] LABS: BASO # 0.1 10^3/uL (0.0-0.2); BASO % 0.5 % (0.0-1.0); EOS # 0.1 10^3/uL (0.0-0.5); EOS % 0.4 % (0.0-3.0); HEMATOCRIT 33.2 % (42.0-52.0); HEMOGLOBIN 10.3 g/dl (13.5-17.5); LYMPH # 2.1 10^3/uL (1.5-5.0); LYMPH % 11.6 % (24.0-44.0); MEAN CORPUSCULAR VOLUME 90.2 fl (80.0-96.0); MONO # 1.3 10^3/uL (0.0-0.8); MONO % 7.1 % (2.0-8.0); NEUTROPHILS # 14.5 10^3/uL (1.5-8.5); NEUTROPHILS % 79.8 % (36.0-66.0); PLATELET COUNT, AUTOMATED 180 10^3/uL (150-450); RED BLOOD COUNT 3.68 10^6/uL (4.30-6.10); WHITE BLOOD COUNT 18.2 10^3/uL (4.0-10.0)
== END ==
LOC: M WUC 13:37
PROVIDERS: ATTEND Physician Assistant
DX: R50.9 Fever, unspecified (principal)

== ENCOUNTER → 2021-01-10 | Outpatient (POV) | payer MEDICARE, OTHER ==
[~2021-01-10] VITALS: Ht 180.3 cm; Wt 97.7 kg
[2021-01-10 09:25] VITALS: BP 158/90
--- NOTE | 2021-01-11 11:28 | IRPN ---
[facility] IR Progress Note IR Progress Note DATE: Jan 10, 2021 FOLLOW-UP: Patient with renal failure. Had right IJ PermCath placed by me in October 2019. Has been using PermCath for dialysis. Now patient has a PD catheter which is working for dialysis. Patient would like his PermCath removed. Nephrology is aware. ON EXAMINATION: Healthy-appearing right sided PermCath site. No overlying cellulitis. IMPRESSION: We discussed the risks and benefits of PermCath removal. Patient agreed to proceed. We have scheduled the patient for PermCath removal. Thank you for this referral Allergies Coded Allergies: No Known Allergies (Unverified , 10/27/20) VS,Fishbone, I+O VS, Fishbone, I+O Vital Signs Date Time Temp Pulse Resp B/P (MAP) Pulse Ox O2 Delivery O2 Flow Rate FiO2 01/10/21 09:25 97.1 67 20 158/90 (112) 98 Room Air ROSAURA CASTRO MD Jan 11, 2021 11:28
== END ==
LOC: M IRPOV 09:09
PROVIDERS: ATTEND Radiology Diagnostic Radiology
DX: Z45.2 Encounter for adjustment and management of vascular access device (principal); N18.6 End stage renal disease

== ENCOUNTER → 2021-01-16 | Outpatient (CLI) | payer MEDICARE, OTHER ==
[~2021-01-16] MED LIST changes: +LIDOCAINE 1% MDV 20ML VIAL As Ordered ONE
[2021-01-16 10:25] VITALS: BP 182/102
--- NOTE | 2021-01-16 10:43 | IRPON ---
IR Postoperative Note Date Of Procedure: Jan 16, 2021 Time Of Procedure: 10:42 IR Postoperative Note IR PermCath removal. Clinical indication: Renal failure. Now dialyzing successfully through peritoneal dialysis catheter. The PermCath site was prepped and draped in the usual sterile fashion. Lidocaine was used for local anesthesia. The catheter cuff was dissected out of the soft tissues using blunt dissection. The catheter was removed in it's entirety. Patient tolerated the procedure well, hemostasis achieved and a sterile dressing was applied to the site. Blood loss: Less than 5 mL. Complications: None. Impression: Successful removal of PermCath. ROSAURA CASTRO MD Jan 16, 2021 10:43
== END ==
LOC: M IRPRO 08:58
PROVIDERS: ATTEND Radiology Diagnostic Radiology
DX: Z45.2 Encounter for adjustment and management of vascular access device (principal); N18.6 End stage renal disease

== ENCOUNTER 2021-10-02 17:23 | Emergency (ER) | payer MEDICARE, OTHER ==
[~2021-10-02] VITALS: Ht 180.3 cm; Wt 100.5 kg
[~2021-10-02 17:23] MED LIST changes: +CITRACAL MAXIMU1 TAB PO; -CITRTAB16 PO; -LIDOCAINE 1% MDV 20ML VIAL As Ordered ONE; +LOSA25TA13 PO; -LOSA25TA14 PO; -OMEP-221 PO; +OMEP40CA5 PO
[2021-10-02] MEDS ORDERED: MORPHINE 4 MG/ML 1ML VIAL/SYRINGE IV ONE ×2 (19:35→22:55)
[2021-10-02 19:51] LABS: BASO # 0.1 10^3/uL (0.0-0.2); BASO % 0.4 % (0.0-1.0); HEMATOCRIT 32.2 % (42.0-52.0); LYMPH # 0.9 10^3/uL (1.5-5.0); LYMPH % 5.4 % (24.0-44.0); MEAN CORPUSCULAR HEMOGLOBIN 27.1 pg (27.0-33.0); MEAN CORPUSCULAR HGB CONC 31.1 g/dl (32.0-36.5); MEAN CORPUSCULAR VOLUME 87.3 fl (80.0-96.0); MONO # 0.5 10^3/uL (0.0-0.8); MONO % 3.2 % (2.0-8.0); NEUTROPHILS # 14.8 10^3/uL (1.5-8.5); NEUTROPHILS % 88.1 % (36.0-66.0); PLATELET COUNT, AUTOMATED 382 10^3/uL (150-450); RED BLOOD COUNT 3.69 10^6/uL (4.30-6.10); WHITE BLOOD COUNT 16.7 10^3/uL (4.0-10.0)
[2021-10-02] MEDS ORDERED: NS 1,000 ML IV ONE (20:00)
[2021-10-02 20:18] LABS: BILIRUBIN,DIRECT 0.3 MG/DL (0.0-0.2); BILIRUBIN,TOTAL 0.4 MG/DL (0.2-1.0); TOTAL PROTEIN 5.1 GM/DL (6.4-8.2)
[2021-10-02 20:27] LABS: CALCIUM LEVEL 6.8 MG/DL (8.5-10.1)
[2021-10-02] MEDS ORDERED: cefTRIAXone SOD 2 GM in D5W MINI-BAG PLUS 50 ML IV ONE (20:30)
[2021-10-02 21:00] LABS: INR 0.95; PROTHROMBIN TIME 13.1 SECONDS (12.7-14.5)
[2021-10-02 21:01] LABS: PARTIAL THROMBOPLASTIN TIME 30.9 SECONDS (25.9-37.0)
[2021-10-02] MEDS ORDERED: HYDROMORPHONE HCL 0.5 MG/ 0.5 ML SYRINGE (J1170 PER 1) IV ONE (21:05)
[2021-10-02 21:14] LABS: CK-MB VALUE MASS 4.1 NG/ML (<3.6); MB/CK RELATIVE INDEX 3.42 (< OR =4)
[2021-10-02] MEDS ORDERED: ASPIRIN 81 MG CHEW TABLET PO ONE (21:15)
[2021-10-02] MEDS ORDERED: HEPARIN SOD (PORCINE) 5000UNITS/ML 1ML VIAL/SYRINGE IV ONE (22:55)
[2021-10-02] MEDS ORDERED: PANTOPRAZOLE 40MG VIAL IV ONE (22:55)
[2021-10-02] MEDS ORDERED: HEPARIN DRIP 25,000 UNITS in IV 1 EA IV SCH (22:55)
[2021-10-02] MEDS ORDERED: MORPHINE 2 MG/ML 1ML VIAL IV PRN (23:10)
[2021-10-02 23:16] LABS: RSV AMPLIFICATION NEGATIVE (NEGATIVE)
[2021-10-03 00:18] LABS: CK-MB VALUE MASS 3.7 NG/ML (<3.6); MB/CK RELATIVE INDEX 2.61 (< OR =4)
[2021-10-03 01:59] LABS: CK-MB VALUE MASS 3.5 NG/ML (<3.6); MB/CK RELATIVE INDEX 3.43 (< OR =4)
[2021-10-03] MEDS ORDERED: HEPARIN DRIP 25,000 UNITS in IV 1 EA IV SCH (05:45)
[2021-10-03] MEDS ORDERED: HEPARIN SOD (PORCINE) 5000UNITS/ML 1ML VIAL/SYRINGE IV PRN (05:45)
[2021-10-03] MEDS ORDERED: HYDROMORPHONE HCL 0.5 MG/ 0.5 ML SYRINGE (J1170 PER 1) IV PRN (06:05)
[2021-10-03 06:20] LABS: INR 1.05; PROTHROMBIN TIME 14.1 SECONDS (12.7-14.5)
[2021-10-03 06:21] LABS: PARTIAL THROMBOPLASTIN TIME 55.4 SECONDS (25.9-37.0)
[2021-10-03 11:01] VITALS: BP 134/62
== END 2021-10-03 11:03 | disposition short-term general hospital (02) ==
LOC: M ED 17:23
DX: I21.4 Non-ST elevation (NSTEMI) myocardial infarction (principal); N18.6 End stage renal disease; I12.0 Hypertensive chronic kidney disease with stage 5 chronic kidney disease or end stage renal disease; R74.02 Elevation of levels of lactic acid dehydrogenase [LDH]; K80.20 Calculus of gallbladder without cholecystitis without obstruction; R18.8 Other ascites; E78.5 Hyperlipidemia, unspecified; H40.9 Unspecified glaucoma; Z98.84 Bariatric surgery status; Z87.891 Personal history of nicotine dependence; Z79.899 Other long term (current) drug therapy
CPT/HCPCS: 74176; 76705; 80047; 80076; 82310; 82550; 82553; 83605; 83690; 84484; 85025; 85610; 85730; 87040; 87631; 93005; 93041; 94760; 96365; 96366; 96375; 96376; 99285; C9113; J0696; J1170; J1644; J2270

== ENCOUNTER → 2021-10-26 | Outpatient (CLI) | payer MEDICARE, OTHER ==
[~2021-10-26] MED LIST changes: +CALC-176 PO; +LYRI75CA PO
== END ==
LOC: M LABSMTC 10:17
PROVIDERS: ATTEND Anesthesiology
DX: Z01.818 Encounter for other preprocedural examination (principal); Z11.52 Encounter for screening for COVID-19

== ENCOUNTER 2021-10-31 09:57 | Day surgery (SDC) | payer MEDICARE, OTHER ==
[~2021-10-31] VITALS: Ht 180.3 cm; Wt 97.9 kg
[2021-10-31] MEDS ORDERED: LR 1,000 ML IV SCH (10:15)
[2021-10-31] MEDS ORDERED: FURO80TA2 PO (10:36)
[2021-10-31] MEDS ORDERED: LANT1000 PO (10:36)
[2021-10-31] MEDS ORDERED: VANCOMYCIN HCL 750 MG, VIAL MATE ADAPTER 1 EACH in D5W 250 ML IV ONE ×6 (11:10)
[2021-10-31] MEDS ORDERED: D5W/0.2% SODIUM CHLORIDE 1,000 ML IV SCH (11:30)
[2021-10-31] MEDS ORDERED: KETOROLAC 60MG 2ML VIAL As Ordered ONE (12:12)
[2021-10-31] MEDS ORDERED: METOCLOPRAMIDE INJ 10MG/2ML VIAL (J2765 PER 1) As Ordered ONE (12:12)
[2021-10-31] MEDS ORDERED: propofoL 200 MG/20 ML VIAL As Ordered ONE (12:12)
[2021-10-31] MEDS ORDERED: ONDANSETRON 4MG 2ML VIAL As Ordered ONE ×2 (12:12→16:08)
[2021-10-31] MEDS ORDERED: LIDOCAINE 2% INJ 100 MG/5 ML SYRINGE As Ordered ONE (12:12)
[2021-10-31] MEDS ORDERED: SUGAMMADEX SODIUM 500 MG/5 ML VIAL (BRIDION) As Ordered ONE (12:12)
[2021-10-31] MEDS ORDERED: fentaNYL 100 MCG/2 ML INJECTION As Ordered ONE (12:12)
[2021-10-31] MEDS ORDERED: dexameTHASONE 4 MG/ML 1ML VIAL (J1100 PER 1MG) As Ordered ONE (12:12)
[2021-10-31] MEDS ORDERED: ROCURONIUM BROMIDE 50 MG/5 ML VIAL As Ordered ONE (12:12)
[2021-10-31] MEDS ORDERED: MIDAZOLAM INJ 2MG/2ML VIAL (J2250 PER 1MG) As Ordered ONE (12:13)
[2021-10-31] MEDS ORDERED: BUPIVACAINE HCL 0.25% 30ML VIAL As Ordered ONE (12:41)
[2021-10-31] MEDS ORDERED: ONDANSETRON 4MG 2ML VIAL IV PRN (16:10)
[2021-10-31] MEDS ORDERED: oxyCODONE 5MG TAB PO PRN (16:10)
[2021-10-31] MEDS ORDERED: NS 1,000 ML IV SCH (16:10)
[2021-10-31] MEDS: fentaNYL 100 MCG/2 ML INJECTION IV PRN ×3 (16:38→16:50)
[2021-10-31] MEDS ORDERED: NORCO, ANEXSIA 5/325MG TABLET (HYDROcodone/ACETAMINOPHEN) PO PRN (17:20)
[2021-10-31] MEDS ORDERED: ACETAMINOPHEN TAB 650MG DOSE (2X325MG) PO PRN (17:20)
[2021-10-31 17:30] VITALS: BP 159/89
[2021-10-31] MEDS ORDERED: HYDR-3715 PO (17:43)
== END 2021-10-31 17:44 | disposition home or self-care (01) ==
LOC: M SDC 09:57
PROVIDERS: ATTEND Surgery
DX: K40.20 Bilateral inguinal hernia, without obstruction or gangrene, not specified as recurrent (principal); Z99.2 Dependence on renal dialysis; K66.0 Peritoneal adhesions (postprocedural) (postinfection); I97.52 Accidental puncture and laceration of a circulatory system organ or structure during other procedure; N18.6 End stage renal disease; K65.9 Peritonitis, unspecified; I13.11 Hypertensive heart and chronic kidney disease without heart failure, with stage 5 chronic kidney disease, or end stage renal disease; D64.9 Anemia, unspecified; E83.39 Other disorders of phosphorus metabolism; K21.9 Gastro-esophageal reflux disease without esophagitis; E11.22 Type 2 diabetes mellitus with diabetic chronic kidney disease; E78.00 Pure hypercholesterolemia, unspecified; Z98.84 Bariatric surgery status; Z79.899 Other long term (current) drug therapy; Z87.891 Personal history of nicotine dependence
CPT/HCPCS: 36415; 49650; 84132; C1781; J1100; J1885; J2250; J2405; J2765; J3010; J3370; S2900

== ENCOUNTER → 2021-11-01 | Outpatient (CLI) | payer MEDICARE, OTHER ==
[~2021-11-01] MED LIST changes: +FURO80TA2 PO; +HYDR-3715 PO; +LANT1000 PO; +LIDOCAINE 1% MDV 20ML VIAL As Ordered ONE; +MIDAZOLAM INJ 2MG/2ML VIAL (J2250 PER 1MG) As Ordered ONE; +NS 1,000 ML IV SCH; +ceFAZolin 2 GM/D5W 50 ML IV BAG (J0690 PER 500MG) As Ordered ONE; +ceFAZolin SOD 2 GM in IV 1 EA IV ONE; +diphenhydrAMINE 50MG/ML VIAL (J1200) As Ordered ONE; +fentaNYL 100 MCG/2 ML INJECTION As Ordered ONE
[2021-11-01 15:15] VITALS: BP 185/108
== END ==
LOC: M IRPRO 10:38
PROVIDERS: ATTEND Internal Medicine Nephrology
DX: N18.9 Chronic kidney disease, unspecified (principal); K44.9 Diaphragmatic hernia without obstruction or gangrene
CPT/HCPCS: 36558; 99152; 99153; C1750; C1769; C1894; J0690; J1200; J1644; J2250; J3010

== ENCOUNTER → 2021-12-14 | Outpatient (CLI) | payer MEDICARE, OTHER ==
[~2021-12-14] MED LIST changes: +CYAN500T14 PO; -LIDOCAINE 1% MDV 20ML VIAL As Ordered ONE; -MIDAZOLAM INJ 2MG/2ML VIAL (J2250 PER 1MG) As Ordered ONE; -NS 1,000 ML IV SCH; +VELP5CHW PO; -ceFAZolin 2 GM/D5W 50 ML IV BAG (J0690 PER 500MG) As Ordered ONE; -ceFAZolin SOD 2 GM in IV 1 EA IV ONE; -diphenhydrAMINE 50MG/ML VIAL (J1200) As Ordered ONE; -fentaNYL 100 MCG/2 ML INJECTION As Ordered ONE
== END ==
LOC: M LABSMTC 09:17
PROVIDERS: ATTEND Anesthesiology
DX: Z01.818 Encounter for other preprocedural examination (principal); Z11.52 Encounter for screening for COVID-19

== ENCOUNTER 2021-12-19 14:44 | Day surgery (SDC) | payer MEDICARE, OTHER ==
[~2021-12-19] VITALS: Ht 180.3 cm; Wt 98.4 kg
[~2021-12-19 14:44] MED LIST changes: +ceFAZolin SOD 2 GM in IV 1 EA IV ONE
[2021-12-19] MEDS ORDERED: LR 1,000 ML IV SCH ×2 (15:25→21:40)
[2021-12-19] MEDS ORDERED: propofoL 200 MG/20 ML VIAL As Ordered ONE (18:09)
[2021-12-19] MEDS ORDERED: LIDOCAINE 2% 100MG/5ML SDV (FOR ANES.) As Ordered ONE (18:09)
[2021-12-19] MEDS ORDERED: dexameTHASONE 4 MG/ML 1ML VIAL (J1100 PER 1MG) As Ordered ONE (18:10)
[2021-12-19] MEDS ORDERED: ROCURONIUM BROMIDE 50 MG/5 ML VIAL As Ordered ONE (18:10)
[2021-12-19] MEDS ORDERED: ONDANSETRON 4MG 2ML VIAL As Ordered ONE (18:10)
[2021-12-19] MEDS ORDERED: SUGAMMADEX SODIUM 500 MG/5 ML VIAL (BRIDION) As Ordered ONE (18:10)
[2021-12-19] MEDS ORDERED: MIDAZOLAM INJ 2MG/2ML VIAL (J2250 PER 1MG) As Ordered ONE (18:15)
[2021-12-19] MEDS ORDERED: fentaNYL 100 MCG/2 ML INJECTION As Ordered ONE ×2 (18:16→20:24)
[2021-12-19] MEDS ORDERED: BUPIVACAINE HCL 0.25% 30ML VIAL As Ordered ONE (19:15)
[2021-12-19] MEDS ORDERED: HEPARIN SOD (PORCINE) 5000UNITS/ML 1ML VIAL/SYRINGE As Ordered ONE ×2 (19:15→21:43)
[2021-12-19] MEDS ORDERED: NS 1,000 ML IV SCH (19:25)
[2021-12-19] MEDS ORDERED: PHENYLephrine 500MCG 5ML (100MCG/ML) SYRINGE As Ordered ONE (20:13)
[2021-12-19] MEDS ORDERED: ePHEDrine SULFATE 25 MG/5 ML(5MG/ML) SYRINGE As Ordered ONE (20:13)
[2021-12-19] MEDS ORDERED: fentaNYL 100 MCG/2 ML INJECTION IV PRN (21:40)
[2021-12-19] MEDS ORDERED: oxyCODONE 5MG TAB PO PRN (21:40)
[2021-12-19] MEDS ORDERED: ONDANSETRON 4MG 2ML VIAL IV PRN (21:40)
[2021-12-19] MEDS ORDERED: HYDROMORPHONE HCL 0.5 MG/ 0.5 ML SYRINGE (J1170 PER 1) IV PRN (21:40)
[2021-12-19 22:36] VITALS: BP 168/85
== END 2021-12-19 22:37 | disposition home or self-care (01) ==
LOC: M SDC 14:44
PROVIDERS: ATTEND Surgery
DX: T85.611A Breakdown (mechanical) of intraperitoneal dialysis catheter, initial encounter (principal); Y73.2 Prosthetic and other implants, materials and accessory gastroenterology and urology devices associated with adverse incidents; K66.0 Peritoneal adhesions (postprocedural) (postinfection); I12.0 Hypertensive chronic kidney disease with stage 5 chronic kidney disease or end stage renal disease; E11.22 Type 2 diabetes mellitus with diabetic chronic kidney disease; E78.00 Pure hypercholesterolemia, unspecified; N18.6 End stage renal disease; Z98.84 Bariatric surgery status; Z87.891 Personal history of nicotine dependence
CPT/HCPCS: 36415; 49325; 49326; 84132; J0690; J1100; J1644; J2250; J2405; J3010

== ENCOUNTER → 2022-01-30 | Outpatient (POV) | payer MEDICARE, OTHER ==
[~2022-01-30] VITALS: Ht 180.3 cm; Wt 100.4 kg
[~2022-01-30] MED LIST changes: -ceFAZolin SOD 2 GM in IV 1 EA IV ONE
== END ==
LOC: M IRPOV 08:27
PROVIDERS: ATTEND Radiology Diagnostic Radiology
DX: Z45.2 Encounter for adjustment and management of vascular access device (principal)

== ENCOUNTER → 2022-02-05 | Outpatient (CLI) | payer MEDICARE, OTHER ==
[~2022-02-05] MED LIST changes: +LIDOCAINE 1% MDV 20ML VIAL As Ordered ONE; +MIDAZOLAM INJ 2MG/2ML VIAL (J2250 PER 1MG) As Ordered ONE; +NS 1,000 ML IV SCH; +[UNRECOGNIZED DRUG - OTHER] PO; +fentaNYL 100 MCG/2 ML INJECTION As Ordered ONE
[2022-02-05 15:51] VITALS: BP 181/76
== END ==
LOC: M IRPRO 12:37
PROVIDERS: ATTEND Radiology Diagnostic Radiology
DX: Z45.2 Encounter for adjustment and management of vascular access device (principal); N19 Unspecified kidney failure
CPT/HCPCS: 36589; 87635; 99152; J2250; J3010

== ENCOUNTER → 2022-03-06 | Outpatient (CLI) | payer MEDICARE, OTHER ==
[~2022-03-06] MED LIST changes: -LIDOCAINE 1% MDV 20ML VIAL As Ordered ONE; -MIDAZOLAM INJ 2MG/2ML VIAL (J2250 PER 1MG) As Ordered ONE; -NS 1,000 ML IV SCH; -fentaNYL 100 MCG/2 ML INJECTION As Ordered ONE
[2022-03-06 13:52] LABS: BASO # 0.1 10^3/uL (0.0-0.2); BASO % 0.9 % (0.0-1.0); EOS # 0.2 10^3/uL (0.0-0.5); HEMATOCRIT 33.3 % (42.0-52.0); HEMOGLOBIN 10.2 g/dl (13.5-17.5); LYMPH # 1.6 10^3/uL (1.5-5.0); LYMPH % 17.7 % (24.0-44.0); MEAN CORPUSCULAR HEMOGLOBIN 26.7 pg (27.0-33.0); MEAN CORPUSCULAR HGB CONC 30.6 g/dl (32.0-36.5); MEAN CORPUSCULAR VOLUME 87.2 fl (80.0-96.0); MONO # 0.7 10^3/uL (0.0-0.8); MONO % 7.6 % (2.0-8.0); NEUTROPHILS # 6.3 10^3/uL (1.5-8.5); NEUTROPHILS % 70.7 % (36.0-66.0); PLATELET COUNT, AUTOMATED 257 10^3/uL (150-450); RED BLOOD COUNT 3.82 10^6/uL (4.30-6.10); WHITE BLOOD COUNT 8.9 10^3/uL (4.0-10.0)
[2022-03-06 15:51] LABS: ALBUMIN 2.1 G/DL (3.2-5.2); ALT/SGPT 22 U/L (7.0-40); BILIRUBIN,DIRECT < 0.1 MG/DL (<0.4); BILIRUBIN,TOTAL < 0.2 MG/DL (0.3-1.2); BLOOD UREA NITROGEN 65 MG/DL (9-23); CARBON DIOXIDE LEVEL 21 MMOL/L (20-31); CHLORIDE LEVEL 104 MMOL/L (98-107); CREATININE FOR GFR 11.14 MG/DL (0.70-1.30); GLOMERULAR FILTRATION RATE 5.2 (>56); GLUCOSE, FASTING 70 MG/DL (60-100); HEPATITIS B SURFACE ANTIBODY POSITIVE (POSITIVE); HEPATITIS B SURFACE ANTIGEN NEGATIVE (NEGATIVE); POTASSIUM SERUM 3.7 MMOL/L (3.5-5.1); SODIUM LEVEL 142 MMOL/L (136-145); TOTAL PROTEIN 5.8 G/DL
[2022-03-06 22:40] LABS: HEPATITIS C VIRUS ABY INDEX < 0.8 INDEX (<0.8)
== END ==
LOC: M LAB 13:00
PROVIDERS: ATTEND Nurse Practitioner Family
DX: Z01.818 Encounter for other preprocedural examination (principal); N18.6 End stage renal disease

== ENCOUNTER → 2022-04-17 | Outpatient (CLI) | payer MEDICARE, OTHER | LOC: M LAB 17:09 | PROVIDERS: ATTEND Nurse Practitioner Family | DX: Z01.818 Encounter for other preprocedural examination (principal) ==

== ENCOUNTER → 2022-05-08 | Outpatient (REF) ==
[2022-05-08 14:25] LABS: APPEARANCE, BODY FLUID CLOUDY
== END ==
LOC: M LAB REF 13:00
PROVIDERS: ATTEND Internal Medicine Nephrology
DX: R88.0 Cloudy (hemodialysis) (peritoneal) dialysis effluent (principal)

== ENCOUNTER 2022-05-24 15:06 | Inpatient (IN) | payer MEDICARE, OTHER ==
[~2022-05-24] VITALS: Ht 180.3 cm; Wt 114.3 kg
[2022-05-24 17:06] VITALS: BP 139/72
[2022-05-24] MEDS ORDERED: VANCOMYCIN HCL 1,000 MG, VIAL MATE ADAPTER 1 EACH in NS 250 ML IV SCH (17:15)
[2022-05-24] MEDS ORDERED: D5W/0.9% SODIUM CHLORIDE 1,000 ML IV SCH (17:15)
[2022-05-24] MEDS ORDERED: LIDOCAINE 1% SDV 30ML VIAL As Ordered ONE (18:08)
[2022-05-24] MEDS ORDERED: SENOKOT S TAB PO PRN (18:15)
[2022-05-24] MEDS ORDERED: LIDOCAINE 2% 100MG/5ML SDV (FOR ANES.) As Ordered ONE (18:20)
[2022-05-24] MEDS ORDERED: propofoL 200 MG/20 ML VIAL As Ordered ONE (18:20)
[2022-05-24] MEDS ORDERED: fentaNYL 100 MCG/2 ML INJECTION As Ordered ONE (18:21)
[2022-05-24] MEDS ORDERED: MIDAZOLAM INJ 2MG/2ML VIAL As Ordered ONE (18:21)
[2022-05-24 18:39] LABS: HEMATOCRIT 28.6 % (42.0-52.0); HEMOGLOBIN 8.7 g/dl (13.5-17.5); MEAN CORPUSCULAR HEMOGLOBIN 27.1 pg (27.0-33.0); MEAN CORPUSCULAR HGB CONC 30.4 g/dl (32.0-36.5); MEAN CORPUSCULAR VOLUME 89.1 fl (80.0-96.0); PLATELET COUNT, AUTOMATED 335 10^3/uL (150-450); RED BLOOD COUNT 3.21 10^6/uL (4.30-6.10); WHITE BLOOD COUNT 16.5 10^3/uL (4.0-10.0)
[2022-05-24] MEDS ORDERED: BUPIVACAINE/EPIN 0.5% 30ML VIAL As Ordered ONE (18:57)
[2022-05-24] MEDS ORDERED: ONDANSETRON 4MG 2ML VIAL IV PRN (19:10)
[2022-05-24] MEDS ORDERED: oxyCODONE 5MG TAB PO PRN (19:10)
[2022-05-24] MEDS ORDERED: fentaNYL 100 MCG/2 ML INJECTION IV PRN (19:10)
[2022-05-24 19:12] LABS: VANCOMYCIN LEVEL TROUGH 21.9 UG/ML (10.0-20.0)
[2022-05-24 19:17] LABS: ALBUMIN 1.1 G/DL (3.2-5.2); ALKALINE PHOSPHATASE 52 U/L (46-116); ALT/SGPT < 9 U/L (7.0-40); AST/SGOT 11 U/L (<34); BILIRUBIN,TOTAL 0.2 MG/DL (0.3-1.2); BLOOD UREA NITROGEN 40 MG/DL (9-23); CALCIUM LEVEL 6.9 MG/DL (8.5-10.1); CARBON DIOXIDE LEVEL 29 MMOL/L (20-31); CHLORIDE LEVEL 102 MMOL/L (98-107); CREATININE FOR GFR 9.44 MG/DL (0.70-1.30); GLOMERULAR FILTRATION RATE 6.3 (>56); GLUCOSE, FASTING 75 MG/DL (60-100); POTASSIUM SERUM 3.2 MMOL/L (3.5-5.1); SODIUM LEVEL 139 MMOL/L (136-145); TOTAL PROTEIN 4.4 G/DL (5.7-8.2)
[2022-05-24 20:00] VITALS: BP 135/66
[2022-05-24] MEDS ORDERED: VITA200012 PO (20:10)
[2022-05-24] MEDS ORDERED: MUPI2OI TOP (20:12)
[2022-05-24] MEDS ORDERED: HOME MED LIST COMPLETE! XX SCH (20:15)
[2022-05-24 20:30] VITALS: BP 131/65
[2022-05-24 21:00] VITALS: BP 140/63
[2022-05-24 22:00] VITALS: BP 137/69
[2022-05-24 23:00] VITALS: BP 130/83
[2022-05-24] MEDS ORDERED: VANCOMYCIN INTERMITTENT/PULSE DOSING BY CLINICAL PHARMACIST PER DOSING PROTOCOL XX SCH (23:00)
[2022-05-24] MEDS: ACETAMINOPHEN TAB 650MG DOSE (2X325MG) PO PRN (23:36)
[2022-05-25] VITALS: BP 130/68
[2022-05-25 04:00] VITALS: BP 134/74
[2022-05-25 05:17] LABS: HEMATOCRIT 24.7 % (42.0-52.0); HEMOGLOBIN 7.4 g/dl (13.5-17.5); MEAN CORPUSCULAR HEMOGLOBIN 27.1 pg (27.0-33.0); MEAN CORPUSCULAR VOLUME 90.5 fl (80.0-96.0); PLATELET COUNT, AUTOMATED 269 10^3/uL (150-450); RED BLOOD COUNT 2.73 10^6/uL (4.30-6.10); WHITE BLOOD COUNT 11.1 10^3/uL (4.0-10.0)
[2022-05-25] MEDS: ACETAMINOPHEN TAB 650MG DOSE (2X325MG) PO PRN (05:24)
[2022-05-25 05:53] LABS: ALBUMIN 0.9 G/DL (3.2-5.2); ALKALINE PHOSPHATASE 49 U/L (46-116); ALT/SGPT < 9 U/L (7.0-40); AST/SGOT 8 U/L (<34); BILIRUBIN,TOTAL 0.2 MG/DL (0.3-1.2); BLOOD UREA NITROGEN 44 MG/DL (9-23); CALCIUM LEVEL 6.7 MG/DL (8.5-10.1); CARBON DIOXIDE LEVEL 28 MMOL/L (20-31); CHLORIDE LEVEL 103 MMOL/L (98-107); CREATININE FOR GFR 10.13 MG/DL (0.70-1.30); GLOMERULAR FILTRATION RATE 5.8 (>56); GLUCOSE, FASTING 86 MG/DL (60-100); MAGNESIUM LEVEL 1.2 MG/DL (1.8-2.4); POTASSIUM SERUM 3.3 MMOL/L (3.5-5.1); SODIUM LEVEL 139 MMOL/L (136-145); TOTAL PROTEIN 3.9 G/DL (5.7-8.2)
[2022-05-25] MEDS ORDERED: MAG SULF 1GM/100ML (MAG RUN) 1 GM in IV 1 EA IV ONE (07:00)
[2022-05-25 07:19] VITALS: BP 128/71
[2022-05-25] MEDS ORDERED: KCL 10MEQ/100ML SWI (KRUN) 10 MEQ in IV 1 EA IV ONE (08:00)
[2022-05-25] MEDS ORDERED: HEPARIN 1,000UNITS/ML 10ML VIAL (FOR RADIOLOGY & DIALYSIS ONLY) XX SCH (09:50)
[2022-05-25] MEDS ORDERED: DARBEPOETIN 100MCG/0.5ML *DIALYSIS* SYRINGE IV SCH (09:50)
[2022-05-25] MEDS ORDERED: SODIUM CHLORIDE 0.9% 1000ML IV PRN (09:50)
[2022-05-25] MEDS ORDERED: HEPARIN 1,000UNITS/ML 10ML VIAL (FOR RADIOLOGY & DIALYSIS ONLY) IV PRN (09:50)
[2022-05-25] MEDS ORDERED: fentaNYL 100 MCG/2 ML INJECTION As Ordered ONE (10:17)
[2022-05-25] MEDS ORDERED: MIDAZOLAM INJ 2MG/2ML VIAL As Ordered ONE (10:18)
[2022-05-25] MEDS ORDERED: HEPARIN 1,000UNITS/ML 10ML VIAL (FOR RADIOLOGY & DIALYSIS ONLY) As Ordered ONE (10:18)
[2022-05-25] MEDS ORDERED: LIDOCAINE 1% MDV 20ML VIAL As Ordered ONE ×2 (10:18→10:57)
[2022-05-25] MEDS ORDERED: hydrALAZINE 20MG/ML 1ML VIAL As Ordered ONE (10:49)
[2022-05-25 12:22] LABS: HEMATOCRIT 25.9 % (42.0-52.0)
[2022-05-25] MEDS: SUCROFERRIC OXYHYDROXIDE 500MG CHEW TAB (VELPHORO) PO SCH ×2 (15:23→18:00)
[2022-05-25] MEDS: GABAPENTIN 300 MG CAP PO SCH ×3 (15:24→21:00)
[2022-05-25 15:42] VITALS: BP 188/90
[2022-05-25] MEDS: MORPHINE 2 MG/ML 1ML VIAL IV PRN ×2 (15:51→22:04)
[2022-05-25] MEDS: CALCITRIOL 0.25 MCG CAP (S0169) PO SCH (15:51)
[2022-05-25] MEDS: VANCOMYCIN HCL 750 MG, VIAL MATE ADAPTER 1 EACH in D5W 250 ML IV SCH (17:38)
[2022-05-25 20:00] VITALS: BP 164/76
[2022-05-25] MEDS: HEPARIN SOD (PORCINE) 5000UNITS/ML 1ML VIAL/SYRINGE SQ SCH (22:05)
[2022-05-25] MEDS: ATORVASTATIN 20 MG TAB PO SCH (22:05)
[2022-05-26] VITALS (12 sets, daily range): BP systolic 104–190; BP diastolic 58–100
[2022-05-26] MEDS: ACETAMINOPHEN TAB 650MG DOSE (2X325MG) PO PRN ×2 (00:56→08:28)
[2022-05-26] MEDS: HEPARIN SOD (PORCINE) 5000UNITS/ML 1ML VIAL/SYRINGE SQ SCH ×3 (06:13→22:36)
[2022-05-26 06:26] LABS: BASO # 0.1 10^3/uL (0.0-0.2); BASO % 0.6 % (0.0-1.0); EOS # 0.1 10^3/uL (0.0-0.5); EOS % 1.4 % (0.0-3.0); HEMATOCRIT 24.2 % (42.0-52.0); HEMOGLOBIN 7.3 g/dl (13.5-17.5); LYMPH # 1.1 10^3/uL (1.5-5.0); LYMPH % 12.4 % (24.0-44.0); MEAN CORPUSCULAR HEMOGLOBIN 27.3 pg (27.0-33.0); MEAN CORPUSCULAR HGB CONC 30.2 g/dl (32.0-36.5); MEAN CORPUSCULAR VOLUME 90.6 fl (80.0-96.0); MONO # 0.8 10^3/uL (0.0-0.8); NEUTROPHILS # 6.9 10^3/uL (1.5-8.5); NEUTROPHILS % 75.8 % (36.0-66.0); PLATELET COUNT, AUTOMATED 238 10^3/uL (150-450); RED BLOOD COUNT 2.67 10^6/uL (4.30-6.10); WHITE BLOOD COUNT 9.1 10^3/uL (4.0-10.0)
[2022-05-26 06:47] LABS: VANCOMYCIN RANDOM 21.4 UG/ML
[2022-05-26 06:48] LABS: ALBUMIN 0.9 G/DL (3.2-5.2); ALKALINE PHOSPHATASE 72 U/L (46-116); ALT/SGPT < 9 U/L (7.0-40); AST/SGOT 14 U/L (<34); BILIRUBIN,TOTAL 0.3 MG/DL (0.3-1.2); BLOOD UREA NITROGEN 33 MG/DL (9-23); CALCIUM LEVEL 6.8 MG/DL (8.5-10.1); CARBON DIOXIDE LEVEL 27 MMOL/L (20-31); CHLORIDE LEVEL 105 MMOL/L (98-107); CREATININE FOR GFR 7.48 MG/DL (0.70-1.30); GLOMERULAR FILTRATION RATE 8.2 (>56); GLUCOSE, FASTING 82 MG/DL (60-100); MAGNESIUM LEVEL 1.5 MG/DL (1.8-2.4); POTASSIUM SERUM 3.4 MMOL/L (3.5-5.1); SODIUM LEVEL 139 MMOL/L (136-145); TOTAL PROTEIN 3.9 G/DL (5.7-8.2)
[2022-05-26] MEDS ORDERED: POTASSIUM CHLORIDE 10MEQ SR TABLET PO ONE (07:15)
[2022-05-26] MEDS ORDERED: MAGNESIUM OXIDE 400MG TAB (MAG-OX) PO ONE (07:15)
[2022-05-26] MEDS: CALCITRIOL 0.25 MCG CAP (S0169) PO SCH (08:22)
[2022-05-26] MEDS: GABAPENTIN 300 MG CAP PO SCH ×3 (08:23→20:43)
[2022-05-26] MEDS: SUCROFERRIC OXYHYDROXIDE 500MG CHEW TAB (VELPHORO) PO SCH ×3 (08:23→18:29)
[2022-05-26 12:19] LABS: HEMOGLOBIN 6.9 g/dl (13.5-17.5)
[2022-05-26 19:29] LABS: HEMATOCRIT 27.7 % (42.0-52.0); HEMOGLOBIN 8.3 g/dl (13.5-17.5)
[2022-05-26] MEDS: ATORVASTATIN 20 MG TAB PO SCH (20:43)
[2022-05-26] MEDS: MORPHINE 2 MG/ML 1ML VIAL IV PRN (20:43)
[2022-05-27 04:00] VITALS: BP_SYST 140; BP_SYST 166; BP_DIAS 78; BP_DIAS 81
[2022-05-27 04:34] LABS: BASO # 0.1 10^3/uL (0.0-0.2); BASO % 0.9 % (0.0-1.0); EOS # 0.2 10^3/uL (0.0-0.5); EOS % 2.8 % (0.0-3.0); HEMATOCRIT 25.4 % (42.0-52.0); HEMOGLOBIN 7.7 g/dl (13.5-17.5); MEAN CORPUSCULAR HEMOGLOBIN 27.2 pg (27.0-33.0); MEAN CORPUSCULAR HGB CONC 30.3 g/dl (32.0-36.5); MEAN CORPUSCULAR VOLUME 89.8 fl (80.0-96.0); MONO # 0.6 10^3/uL (0.0-0.8); MONO % 7.6 % (2.0-8.0); NEUTROPHILS # 5.6 10^3/uL (1.5-8.5); NEUTROPHILS % 74.8 % (36.0-66.0); PLATELET COUNT, AUTOMATED 269 10^3/uL (150-450); RED BLOOD COUNT 2.83 10^6/uL (4.30-6.10); WHITE BLOOD COUNT 7.5 10^3/uL (4.0-10.0)
[2022-05-27 05:06] LABS: ALBUMIN 0.9 G/DL (3.2-5.2); ALKALINE PHOSPHATASE 96 U/L (46-116); ALT/SGPT < 9 U/L (7.0-40); AST/SGOT 15 U/L (<34); BILIRUBIN,TOTAL 0.2 MG/DL (0.3-1.2); BLOOD UREA NITROGEN 41 MG/DL (9-23); CALCIUM LEVEL 7.4 MG/DL (8.5-10.1); CARBON DIOXIDE LEVEL 25 MMOL/L (20-31); CHLORIDE LEVEL 107 MMOL/L (98-107); CREATININE FOR GFR 8.59 MG/DL (0.70-1.30); GLUCOSE, FASTING 72 MG/DL (60-100); MAGNESIUM LEVEL 1.8 MG/DL (1.8-2.4); POTASSIUM SERUM 3.9 MMOL/L (3.5-5.1); SODIUM LEVEL 140 MMOL/L (136-145); TOTAL PROTEIN 3.9 G/DL (5.7-8.2)
[2022-05-27] MEDS: HEPARIN SOD (PORCINE) 5000UNITS/ML 1ML VIAL/SYRINGE SQ SCH ×3 (06:00→21:21)
[2022-05-27 07:24] VITALS: BP 158/82
[2022-05-27] MEDS: CALCITRIOL 0.25 MCG CAP (S0169) PO SCH (09:00)
[2022-05-27] MEDS: GABAPENTIN 300 MG CAP PO SCH ×4 (09:00→21:00)
[2022-05-27] MEDS: MAGNESIUM OXIDE 400MG TAB (MAG-OX) PO SCH (09:01)
[2022-05-27] MEDS: SUCROFERRIC OXYHYDROXIDE 500MG CHEW TAB (VELPHORO) PO SCH ×3 (09:01→18:25)
[2022-05-27 12:11] LABS: HEMATOCRIT 25.1 % (42.0-52.0); HEMOGLOBIN 7.6 g/dl (13.5-17.5)
[2022-05-27 12:21] VITALS: BP 156/86
[2022-05-27 15:53] VITALS: BP 143/79
[2022-05-27 20:00] VITALS: BP 160/80
[2022-05-27] MEDS: ATORVASTATIN 20 MG TAB PO SCH (21:20)
[2022-05-27] MEDS: MORPHINE 2 MG/ML 1ML VIAL IV PRN (21:26)
[2022-05-28] VITALS: BP 156/80
[2022-05-28 04:00] VITALS: BP 151/78
[2022-05-28 04:59] LABS: BASO # 0.1 10^3/uL (0.0-0.2); BASO % 0.7 % (0.0-1.0); EOS # 0.2 10^3/uL (0.0-0.5); EOS % 2.9 % (0.0-3.0); HEMATOCRIT 25.9 % (42.0-52.0); HEMOGLOBIN 7.9 g/dl (13.5-17.5); LYMPH % 14.1 % (24.0-44.0); MEAN CORPUSCULAR HEMOGLOBIN 27.1 pg (27.0-33.0); MEAN CORPUSCULAR HGB CONC 30.5 g/dl (32.0-36.5); MONO # 0.7 10^3/uL (0.0-0.8); MONO % 9.8 % (2.0-8.0); NEUTROPHILS % 71.2 % (36.0-66.0); PLATELET COUNT, AUTOMATED 274 10^3/uL (150-450); RED BLOOD COUNT 2.91 10^6/uL (4.30-6.10)
[2022-05-28 05:25] LABS: VANCOMYCIN RANDOM 17.9 UG/ML
[2022-05-28 05:49] LABS: BILIRUBIN,TOTAL 0.2 MG/DL (0.3-1.2); CALCIUM LEVEL 7.2 MG/DL (8.5-10.1); CREATININE FOR GFR 9.49 MG/DL (0.70-1.30); GLOMERULAR FILTRATION RATE 6.2 (>56); MAGNESIUM LEVEL 1.7 MG/DL (1.8-2.4); POTASSIUM SERUM 3.8 MMOL/L (3.5-5.1); TOTAL PROTEIN 4.2 G/DL (5.7-8.2)
[2022-05-28] MEDS ORDERED: SODIUM CHLORIDE 0.9% 1000ML IV PRN (06:00)
[2022-05-28] MEDS ORDERED: HEPARIN 1,000UNITS/ML 10ML VIAL (FOR RADIOLOGY & DIALYSIS ONLY) XX SCH (06:00)
[2022-05-28] MEDS ORDERED: HEPARIN 1,000UNITS/ML 10ML VIAL (FOR RADIOLOGY & DIALYSIS ONLY) IV PRN (06:00)
[2022-05-28] MEDS: SUCROFERRIC OXYHYDROXIDE 500MG CHEW TAB (VELPHORO) PO SCH ×2 (06:05→12:30)
[2022-05-28] MEDS: GABAPENTIN 300 MG CAP PO SCH (06:06)
[2022-05-28] MEDS: CALCITRIOL 0.25 MCG CAP (S0169) PO SCH (06:23)
[2022-05-28] MEDS: HEPARIN SOD (PORCINE) 5000UNITS/ML 1ML VIAL/SYRINGE SQ SCH (06:23)
[2022-05-28] MEDS: MAGNESIUM OXIDE 400MG TAB (MAG-OX) PO SCH (06:23)
[2022-05-28] MEDS ORDERED: MAGNESIUM OXIDE 400MG TAB (MAG-OX) PO ONE (07:15)
[2022-05-28 07:40] VITALS: BP 156/81
[2022-05-28] MEDS ORDERED: MAGN400T2 PO (09:20)
[2022-05-28] MEDS: VANCOMYCIN HCL 750 MG, VIAL MATE ADAPTER 1 EACH in D5W 250 ML IV SCH (11:54)
[2022-05-28 14:49] VITALS: BP 169/84
== END 2022-05-28 14:50 | disposition home or self-care (01) | DRG 919 ==
LOC: M PCU 17:13
PROVIDERS: ADMIT Internal Medicine; ATTEND Internal Medicine
PROC: 0JPT03Z Removal of Infusion Device from Trunk Subcutaneous Tissue and Fascia, Open Approach (ICD-10-PCS; 2022-05-24)
PROC: 02H633Z Insertion of Infusion Device into Right Atrium, Percutaneous Approach (ICD-10-PCS; 2022-05-25)
PROC: 0JH63XZ Insertion of Tunneled Vascular Access Device into Chest Subcutaneous Tissue and Fascia, Percutaneous Approach (ICD-10-PCS; principal; 2022-05-25 10:00)
PROC: 30233N1 Transfusion of Nonautologous Red Blood Cells into Peripheral Vein, Percutaneous Approach (ICD-10-PCS; 2022-05-26)
PROC: 5A1D70Z Performance of Urinary Filtration, Intermittent, Less than 6 Hours Per Day (ICD-10-PCS; 2022-05-28)
DX: T85.71XA Infection and inflammatory reaction due to peritoneal dialysis catheter, initial encounter (principal); N18.6 End stage renal disease; K65.9 Peritonitis, unspecified; E46 Unspecified protein-calorie malnutrition; N25.81 Secondary hyperparathyroidism of renal origin; E11.22 Type 2 diabetes mellitus with diabetic chronic kidney disease; E78.5 Hyperlipidemia, unspecified; E87.6 Hypokalemia; K40.20 Bilateral inguinal hernia, without obstruction or gangrene, not specified as recurrent; E11.42 Type 2 diabetes mellitus with diabetic polyneuropathy; D63.1 Anemia in chronic kidney disease; B95.62 Methicillin resistant Staphylococcus aureus infection as the cause of diseases classified elsewhere; Z99.2 Dependence on renal dialysis; Z79.899 Other long term (current) drug therapy; Z90.49 Acquired absence of other specified parts of digestive tract; Z98.41 Cataract extraction status, right eye; Z98.42 Cataract extraction status, left eye; Z98.84 Bariatric surgery status

== ENCOUNTER → 2022-06-29 | Outpatient (CLI) | payer OTHER ==
[~2022-06-29] MED LIST changes: +GASTROGRAFIN SOLUTION 30ML As Ordered ONE; +ISOVUE-370 76% 100ML VIAL As Ordered ONE; +MAGN400T2 PO; +MUPI2OI TOP; +VITA200012 PO
== END ==
LOC: M RAD 09:42
PROVIDERS: ATTEND Internal Medicine Nephrology
DX: K66.0 Peritoneal adhesions (postprocedural) (postinfection) (principal); K65.8 Other peritonitis

== ENCOUNTER → 2022-07-05 | Outpatient (CLI) | payer OTHER ==
[~2022-07-05] MED LIST changes: -GASTROGRAFIN SOLUTION 30ML As Ordered ONE; -ISOVUE-370 76% 100ML VIAL As Ordered ONE
== END ==
LOC: M RAD 12:29
PROVIDERS: ATTEND Internal Medicine Nephrology
DX: N18.6 End stage renal disease (principal)

== ENCOUNTER 2022-09-28 06:00 | Day surgery (SDC) | payer OTHER, MEDICARE ==
[~2022-09-28] VITALS: Ht 180.3 cm; Wt 99.8 kg
[~2022-09-28 06:00] MED LIST changes: +CALC500C14; +CelecoXIB 400 MG CAP PO ONE; +ceFAZolin SOD 2 GM in IV 1 EA IV ONE
[2022-09-28] MEDS ORDERED: LR 1,000 ML IV SCH ×2 (06:30→09:05)
[2022-09-28] MEDS ORDERED: fentaNYL 100 MCG/2 ML INJECTION As Ordered ONE ×2 (07:04→08:18)
[2022-09-28] MEDS ORDERED: ACETAMINOPHEN 1000MG 100ML IV BAG As Ordered ONE (07:05)
[2022-09-28] MEDS ORDERED: MIDAZOLAM INJ 2MG/2ML VIAL As Ordered ONE (07:05)
[2022-09-28] MEDS ORDERED: ROCURONIUM BROMIDE 50MG/5ML VIAL As Ordered ONE ×2 (07:09→08:29)
[2022-09-28] MEDS ORDERED: propofoL 200 MG/20 ML VIAL As Ordered ONE (07:09)
[2022-09-28] MEDS ORDERED: ONDANSETRON 4MG 2ML VIAL As Ordered ONE (07:09)
[2022-09-28] MEDS ORDERED: KETOROLAC 60MG 2ML VIAL As Ordered ONE (07:09)
[2022-09-28] MEDS ORDERED: LIDOCAINE 2% 100MG/5ML SDV (FOR ANES.) As Ordered ONE (07:10)
[2022-09-28] MEDS ORDERED: SUGAMMADEX SODIUM 500 MG/5 ML VIAL (BRIDION) As Ordered ONE (07:10)
[2022-09-28] MEDS ORDERED: HEPARIN 1,000UNITS/ML 10ML VIAL (FOR RADIOLOGY & DIALYSIS ONLY) As Ordered ONE (07:27)
[2022-09-28] MEDS ORDERED: LIDOCAINE 1% SDV 30ML VIAL As Ordered ONE (07:27)
[2022-09-28] MEDS ORDERED: HEPARIN SOD (PORCINE) 5000UNITS/ML 1ML VIAL/SYRINGE As Ordered ONE (07:28)
[2022-09-28] MEDS ORDERED: fentaNYL 100 MCG/2 ML INJECTION IV PRN (09:05)
[2022-09-28] MEDS ORDERED: ONDANSETRON 4MG 2ML VIAL IV PRN (09:05)
[2022-09-28] MEDS ORDERED: HYDROMORPHONE HCL 0.5 MG/ 0.5 ML SYRINGE IV PRN (09:05)
[2022-09-28] MEDS ORDERED: oxyCODONE 5MG TAB PO PRN (09:05)
[2022-09-28 10:35] VITALS: BP 168/98; TEMP 97; O2SAT 96
== END 2022-09-28 10:35 | disposition home or self-care (01) ==
LOC: M SDC 06:00
PROVIDERS: ATTEND Surgery
DX: N18.6 End stage renal disease (principal); K66.0 Peritoneal adhesions (postprocedural) (postinfection); Z98.84 Bariatric surgery status; Z87.39 Personal history of other diseases of the musculoskeletal system and connective tissue; E78.00 Pure hypercholesterolemia, unspecified; E11.40 Type 2 diabetes mellitus with diabetic neuropathy, unspecified; J00 Acute nasopharyngitis [common cold]; Z79.899 Other long term (current) drug therapy
CPT/HCPCS: 36415; 49324; 84132; C1750; J0131; J1100; J2250; J2405; J3010

== ENCOUNTER 2022-11-05 07:55 | Day surgery (SDC) | payer MEDICARE, OTHER ==
[~2022-11-05] VITALS: Ht 180.3 cm; Wt 102.1 kg
[~2022-11-05 07:55] MED LIST changes: -CALC500C14; +CALC500C14 PO; -CelecoXIB 400 MG CAP PO ONE; +GABA600T4 PO; +ROCA0.5C PO; +TRAZ-252 PO; -ceFAZolin SOD 2 GM in IV 1 EA IV ONE
[2022-11-05] MEDS ORDERED: NS 1,000 ML IV SCH (08:15)
[2022-11-05] MEDS ORDERED: LR 1,000 ML IV SCH ×2 (08:15→11:45)
[2022-11-05 08:29] LABS: HEMOGLOBIN 10.9 g/dl (13.5-17.5); MEAN CORPUSCULAR HEMOGLOBIN 28.2 pg (27.0-33.0); MEAN CORPUSCULAR HGB CONC 32.1 g/dl (32.0-36.5); MEAN CORPUSCULAR VOLUME 87.9 fl (80.0-96.0); PLATELET COUNT, AUTOMATED 223 10^3/uL (150-450); RED BLOOD COUNT 3.87 10^6/uL (4.30-6.10); WHITE BLOOD COUNT 8.3 10^3/uL (4.0-10.0)
[2022-11-05] MEDS ORDERED: LIDOCAINE 2% 100MG/5ML SDV (FOR ANES.) As Ordered ONE (08:30)
[2022-11-05] MEDS ORDERED: METOCLOPRAMIDE INJ 10MG/2ML VIAL As Ordered ONE (08:30)
[2022-11-05] MEDS ORDERED: propofoL 200 MG/20 ML VIAL As Ordered ONE (08:30)
[2022-11-05] MEDS ORDERED: ONDANSETRON 4MG 2ML VIAL As Ordered ONE (08:30)
[2022-11-05] MEDS ORDERED: fentaNYL 250 MCG/5 ML INJECTION As Ordered ONE (08:31)
[2022-11-05] MEDS ORDERED: MIDAZOLAM INJ 2MG/2ML VIAL As Ordered ONE (08:31)
[2022-11-05] MEDS ORDERED: ceFAZolin SOD 2 GM in IV 1 EA IV ONE (09:00)
[2022-11-05 09:11] LABS: CALCIUM LEVEL 7.2 MG/DL (8.5-10.1); CREATININE FOR GFR 14.06 MG/DL (0.70-1.30); POTASSIUM SERUM 3.2 MMOL/L (3.5-5.1)
[2022-11-05] MEDS ORDERED: SEVOFLURANE INHAL SOLN 250 ML BTL As Ordered ONE (09:32)
[2022-11-05] MEDS ORDERED: PAPAVERINE HCL 60MG 2ML VIAL (30MG/ML) As Ordered ONE (09:36)
[2022-11-05] MEDS ORDERED: GLYCOPYRROLATE INJ 0.2 MG/ML 2 ML VIAL As Ordered ONE (10:32)
[2022-11-05] MEDS ORDERED: ePHEDrine SULFATE 25 MG/5 ML(5MG/ML) SYRINGE As Ordered ONE (10:34)
[2022-11-05] MEDS ORDERED: ACETAMINOPHEN 1000MG 100ML IV BAG As Ordered ONE (10:41)
[2022-11-05] MEDS ORDERED: PHENYLephrine 500MCG 5ML (100MCG/ML) SYRINGE As Ordered ONE (10:57)
[2022-11-05] MEDS: LIDOCAINE 1% SDV 30ML VIAL As Ordered ONE ×2 (11:30→11:48)
[2022-11-05 14:43] VITALS: BP 165/91; TEMP 97.8; O2SAT 97
== END 2022-11-05 14:45 | disposition home or self-care (01) ==
LOC: M SDC 07:55
PROVIDERS: ATTEND Surgery Vascular Surgery
DX: N18.6 End stage renal disease (principal); Z99.2 Dependence on renal dialysis; Z86.14 Personal history of Methicillin resistant Staphylococcus aureus infection; E78.00 Pure hypercholesterolemia, unspecified; Z87.39 Personal history of other diseases of the musculoskeletal system and connective tissue; E11.42 Type 2 diabetes mellitus with diabetic polyneuropathy; I10 Essential (primary) hypertension; Z98.84 Bariatric surgery status; Z79.899 Other long term (current) drug therapy
CPT/HCPCS: 36415; 36589; 36821; 80048; 85027; J0131; J0690; J1100; J2250; J2371; J2405; J2440; J2765; J3010

== ENCOUNTER → 2022-11-07 | Outpatient (CLI) | payer MEDICARE, OTHER ==
[~2022-11-07] MED LIST changes: +CALC500C14; -CALC500C14 PO
== END ==
LOC: M RAD 09:25
PROVIDERS: ATTEND Surgery Vascular Surgery
DX: I82.622 Acute embolism and thrombosis of deep veins of left upper extremity (principal)

== ENCOUNTER 2022-11-27 16:33 | Emergency (ER) | payer MEDICARE, OTHER ==
[~2022-11-27] VITALS: Ht 180.3 cm; Wt 104.3 kg
[~2022-11-27 16:33] MED LIST changes: -CALC500C14; +CALC500C14 PO
[2022-11-27] MEDS ORDERED: TORS100T (17:06)
[2022-11-27 23:34] VITALS: TEMP 97.1
[2022-11-28 01:49] LABS: BASO # 0.1 10^3/uL (0.0-0.2); BASO % 1.7 % (0.0-1.0); EOS # 0.6 10^3/uL (0.0-0.5); EOS % 7.7 % (0.0-3.0); HEMATOCRIT 33.7 % (42.0-52.0); HEMOGLOBIN 10.5 g/dl (13.5-17.5); LYMPH # 1.8 10^3/uL (1.5-5.0); LYMPH % 22.2 % (24.0-44.0); MEAN CORPUSCULAR HGB CONC 31.2 g/dl (32.0-36.5); MEAN CORPUSCULAR VOLUME 89.9 fl (80.0-96.0); MONO # 0.8 10^3/uL (0.0-0.8); MONO % 9.5 % (2.0-8.0); NEUTROPHILS # 4.7 10^3/uL (1.5-8.5); NEUTROPHILS % 57.9 % (36.0-66.0); PLATELET COUNT, AUTOMATED 209 10^3/uL (150-450); RED BLOOD COUNT 3.75 10^6/uL (4.30-6.10); WHITE BLOOD COUNT 8.1 10^3/uL (4.0-10.0)
[2022-11-28 02:07] LABS: LIPASE 68 U/L (12-53)
[2022-11-28 02:47] LABS: ALBUMIN 2.4 G/DL (3.2-5.2); ALKALINE PHOSPHATASE 88 U/L (46-116); ALT/SGPT 18 U/L (7.0-40); AST/SGOT 25 U/L (<34); BILIRUBIN,DIRECT < 0.1 MG/DL (<0.4); BILIRUBIN,TOTAL 0.2 MG/DL (0.3-1.2); BLOOD UREA NITROGEN 62 MG/DL (9-23); CALCIUM LEVEL 7.1 MG/DL (8.5-10.1); CARBON DIOXIDE LEVEL 24 MMOL/L (20-31); CHLORIDE LEVEL 103 MMOL/L (98-107); CK-MB VALUE MASS 1.2 NG/ML (<3.6); CPK CREATINE PHOSPHOKINASE 116 U/L (46-171); CREATININE FOR GFR 13.12 MG/DL (0.70-1.30); GLOMERULAR FILTRATION RATE 4.3 (>56); GLUCOSE, FASTING 85 MG/DL (60-100); MB/CK RELATIVE INDEX 1.03 (< OR =4); POTASSIUM SERUM 4.4 MMOL/L (3.5-5.1); SODIUM LEVEL 142 MMOL/L (136-145)
[2022-11-28] MEDS ORDERED: TORS100T PO (03:53)
[2022-11-28] MEDS ORDERED: FUROSEMIDE 100MG/10ML VIAL IV ONE (03:55)
[2022-11-28 05:32] VITALS: BP 165/95; O2SAT 98
[2022-11-29] MEDS ORDERED: TRAZ-257 PO (18:38)
[2022-11-29] MEDS ORDERED: ATOR1TAB21 PO (18:38)
[2022-11-29] MEDS ORDERED: D 101000 PO (18:38)
[2022-11-29] MEDS ORDERED: B-12100021 PO (18:38)
== END 2022-11-28 06:16 | disposition home or self-care (01) ==
LOC: M ED 16:33
DX: R60.1 Generalized edema (principal); E11.9 Type 2 diabetes mellitus without complications; I12.9 Hypertensive chronic kidney disease with stage 1 through stage 4 chronic kidney disease, or unspecified chronic kidney disease; N18.9 Chronic kidney disease, unspecified; E78.5 Hyperlipidemia, unspecified; E21.3 Hyperparathyroidism, unspecified; D64.9 Anemia, unspecified; Z79.899 Other long term (current) drug therapy

== ENCOUNTER 2022-11-29 16:14 | Inpatient (IN) | payer MEDICARE, OTHER ==
[~2022-11-29] VITALS: Ht 180.3 cm; Wt 103.6 kg
[~2022-11-29 16:14] MED LIST changes: +TORS100T; +TORS100T PO
[2022-11-29] MEDS ORDERED: MED REC IN PROGRESS XX SCH (18:05)
[2022-11-29 18:24] LABS: BASO # 0.1 10^3/uL (0.0-0.2); BASO % 1.7 % (0.0-1.0); EOS # 0.5 10^3/uL (0.0-0.5); EOS % 6.3 % (0.0-3.0); HEMATOCRIT 31.3 % (42.0-52.0); HEMOGLOBIN 9.5 g/dl (13.5-17.5); LYMPH # 1.4 10^3/uL (1.5-5.0); LYMPH % 19.3 % (24.0-44.0); MEAN CORPUSCULAR HEMOGLOBIN 27.7 pg (27.0-33.0); MEAN CORPUSCULAR HGB CONC 30.4 g/dl (32.0-36.5); MEAN CORPUSCULAR VOLUME 91.3 fl (80.0-96.0); MONO # 0.7 10^3/uL (0.0-0.8); MONO % 9.1 % (2.0-8.0); NEUTROPHILS # 4.7 10^3/uL (1.5-8.5); NEUTROPHILS % 62.9 % (36.0-66.0); PLATELET COUNT, AUTOMATED 210 10^3/uL (150-450); RED BLOOD COUNT 3.43 10^6/uL (4.30-6.10); WHITE BLOOD COUNT 7.5 10^3/uL (4.0-10.0)
[2022-11-29] MEDS ORDERED: TRAZ-257 PO (18:38)
[2022-11-29] MEDS ORDERED: ATOR1TAB21 PO (18:38)
[2022-11-29] MEDS ORDERED: D 101000 PO (18:38)
[2022-11-29] MEDS ORDERED: B-12100021 PO (18:38)
[2022-11-29 18:43] LABS: ALBUMIN 2.3 G/DL (3.2-5.2); BILIRUBIN,DIRECT 0.1 MG/DL (<0.4); BILIRUBIN,TOTAL 0.2 MG/DL (0.3-1.2); CALCIUM LEVEL 7.1 MG/DL (8.5-10.1); CK-MB VALUE MASS 1.2 NG/ML (<3.6); CREATININE FOR GFR 14.1 MG/DL (0.70-1.30); FREE T4 0.75 NG/DL (0.89-1.76); MB/CK RELATIVE INDEX 1.16 (< OR =4); POTASSIUM SERUM 4.1 MMOL/L (3.5-5.1); THYROID STIMULATING HORMONE 3.516 uIU/ML (0.55-4.78); TOTAL PROTEIN 5.7 G/DL (5.7-8.2)
[2022-11-29] MEDS ORDERED: HOME MED LIST COMPLETE! XX SCH (18:45)
[2022-11-29 19:45] LABS: RSV AMPLIFICATION NEGATIVE (NEGATIVE)
[2022-11-29] MEDS ORDERED: METOPROLOL TART 25 MG TABLET PO ONE (21:30)
[2022-11-29] MEDS ORDERED: ISOVUE-370 76% 100ML VIAL As Ordered ONE (21:30)
[2022-11-29] MEDS ORDERED: GLUCAGON INJ 1MG VIAL SC PRN (22:00)
[2022-11-29] MEDS ORDERED: GLUCOSE 4GM CHEW TABLET PO PRN (22:00)
[2022-11-29] MEDS ORDERED: ACETAMINOPHEN TAB 650MG DOSE (2X325MG) PO PRN (22:00)
[2022-11-29] MEDS ORDERED: DEXTROSE 50% 50ML SYRINGE IV PRN (22:00)
[2022-11-29] MEDS ORDERED: CALCIUM CARBONATE 500 MG CHEW U/D PO PRN (22:00)
[2022-11-29 23:10] VITALS: BP 188/90; TEMP 97.4; O2SAT 98
[2022-11-29] MEDS: GABAPENTIN 300 MG CAP PO SCH (23:27)
[2022-11-29] MEDS: ATORVASTATIN 20 MG TAB PO SCH (23:27)
[2022-11-29] MEDS: CALCITRIOL 0.25 MCG CAP (S0169) PO SCH (23:27)
[2022-11-30] VITALS (20 sets, daily range): BP systolic 133–192; BP diastolic 71–100; TEMP 96.2–98.4; O2SAT 93–100
[2022-11-30] MEDS ORDERED: amLODIPine 5 MG TAB PO ONE ×2 (04:15→06:45)
[2022-11-30] MEDS: HEPARIN SOD (PORCINE) 5000UNITS/ML 1ML VIAL/SYRINGE SC SCH ×3 (06:24→21:44)
[2022-11-30] MEDS: SUCROFERRIC OXYHYDROXIDE 500MG CHEW TAB (VELPHORO) PO SCH ×3 (08:57→20:00)
[2022-11-30] MEDS: MULTIVITAMINS/MINERALS THERAP 1 TAB PO SCH (08:57)
[2022-11-30] MEDS: VITAMIN D 1,000 INTERNATIONAL UNITS TABLET PO SCH (09:00)
[2022-11-30] MEDS: CYANOCOBALAMIN 500 MCG TAB PO SCH (09:00)
[2022-11-30 10:13] LABS: CALCIUM LEVEL 7.1 MG/DL (8.5-10.1); CREATININE FOR GFR 14.62 MG/DL (0.70-1.30); GLOMERULAR FILTRATION RATE 3.8 (>56); POTASSIUM SERUM 4.2 MMOL/L (3.5-5.1)
[2022-11-30] MEDS ORDERED: fentaNYL 100 MCG/2 ML INJECTION As Ordered ONE (15:57)
[2022-11-30] MEDS ORDERED: MIDAZOLAM INJ 2MG/2ML VIAL As Ordered ONE (15:58)
[2022-11-30] MEDS ORDERED: LIDOCAINE 1% MDV 20ML VIAL As Ordered ONE (15:58)
[2022-11-30] MEDS ORDERED: ISOVUE-300 61% 100ML VIAL As Ordered ONE (15:58)
[2022-11-30] MEDS ORDERED: hydrALAZINE 20MG/ML 1ML VIAL As Ordered ONE (16:23)
[2022-11-30] MEDS ORDERED: HEPARIN 1,000UNITS/ML 10ML VIAL (FOR RADIOLOGY & DIALYSIS ONLY) As Ordered ONE (17:01)
[2022-11-30] MEDS: CALCITRIOL 0.25 MCG CAP (S0169) PO SCH (20:00)
[2022-11-30] MEDS: ATORVASTATIN 20 MG TAB PO SCH (20:00)
[2022-11-30] MEDS: GABAPENTIN 300 MG CAP PO SCH (20:00)
[2022-12-01] VITALS (19 sets, daily range): BP systolic 107–159; BP diastolic 55–83; TEMP 97.1–97.6; O2SAT 92–100
[2022-12-01] MEDS: HEPARIN SOD (PORCINE) 5000UNITS/ML 1ML VIAL/SYRINGE SC SCH ×3 (06:00→23:31)
[2022-12-01] MEDS: CYANOCOBALAMIN 500 MCG TAB PO SCH (08:25)
[2022-12-01] MEDS: MULTIVITAMINS/MINERALS THERAP 1 TAB PO SCH (08:25)
[2022-12-01] MEDS: SUCROFERRIC OXYHYDROXIDE 500MG CHEW TAB (VELPHORO) PO SCH ×3 (08:25→20:25)
[2022-12-01] MEDS: VITAMIN D 1,000 INTERNATIONAL UNITS TABLET PO SCH (08:26)
[2022-12-01] MEDS ORDERED: SENOKOT S TAB PO PRN (14:55)
[2022-12-01] MEDS ORDERED: MIRALAX *UNIT DOSE* 17GM PACKET PO PRN (14:55)
[2022-12-01] MEDS: ATORVASTATIN 20 MG TAB PO SCH (20:23)
[2022-12-01] MEDS: CALCITRIOL 0.25 MCG CAP (S0169) PO SCH (20:23)
[2022-12-01] MEDS: GABAPENTIN 300 MG CAP PO SCH (20:23)
[2022-12-02] VITALS: BP 133/76; TEMP 97.2; O2SAT 97
[2022-12-02 04:00] VITALS: BP 117/71; TEMP 97.3; O2SAT 96
[2022-12-02 05:52] LABS: HEMATOCRIT 32.1 % (42.0-52.0); HEMOGLOBIN 9.9 g/dl (13.5-17.5); MEAN CORPUSCULAR HEMOGLOBIN 27.7 pg (27.0-33.0); MEAN CORPUSCULAR HGB CONC 30.8 g/dl (32.0-36.5); MEAN CORPUSCULAR VOLUME 89.7 fl (80.0-96.0); PLATELET COUNT, AUTOMATED 172 10^3/uL (150-450); RED BLOOD COUNT 3.58 10^6/uL (4.30-6.10); WHITE BLOOD COUNT 8.5 10^3/uL (4.0-10.0)
[2022-12-02] MEDS: HEPARIN SOD (PORCINE) 5000UNITS/ML 1ML VIAL/SYRINGE SC SCH (06:24)
[2022-12-02 06:25] LABS: ALBUMIN 2.2 G/DL (3.2-5.2); CALCIUM LEVEL 6.8 MG/DL (8.5-10.1); CREATININE FOR GFR 13.82 MG/DL (0.70-1.30); PHOSPHORUS LEVEL 9.8 MG/DL (2.5-4.9); POTASSIUM SERUM 3.4 MMOL/L (3.5-5.1)
[2022-12-02] MEDS ORDERED: CALCIUM CARBONATE 500 MG CHEW U/D PO SCH (08:00)
[2022-12-02 08:07] VITALS: BP 164/89; TEMP 97; O2SAT 99
[2022-12-02 08:16] VITALS: BP 178/102
[2022-12-02] MEDS: CYANOCOBALAMIN 500 MCG TAB PO SCH (08:38)
[2022-12-02] MEDS: MULTIVITAMINS/MINERALS THERAP 1 TAB PO SCH (08:38)
[2022-12-02] MEDS: SUCROFERRIC OXYHYDROXIDE 500MG CHEW TAB (VELPHORO) PO SCH (08:38)
[2022-12-02] MEDS: VITAMIN D 1,000 INTERNATIONAL UNITS TABLET PO SCH (08:38)
[2022-12-02] MEDS ORDERED: HEPARIN SOD (PORCINE) 5000UNITS/ML 1ML VIAL/SYRINGE PD ONE (10:00)
[2022-12-02] MEDS ORDERED: TORSEMIDE 100 MG TAB PO SCH (10:30)
[2022-12-02] MEDS ORDERED: cloNIDine 0.1MG TABLET PO ONE (10:35)
[2022-12-02 10:39] VITALS: BP 125/71
[2022-12-02 10:40] VITALS: BP 125/71
== END 2022-12-02 12:06 | disposition home or self-care (01) | DRG 252 ==
LOC: M ED 16:14 → M ED INP 21:58 → M PCU 23:07
PROVIDERS: ADMIT Internal Medicine; ATTEND General Practice
PROC: 3E1M39Z Irrigation of Peritoneal Cavity using Dialysate, Percutaneous Approach (ICD-10-PCS; 2022-11-29)
PROC: 05743ZZ Dilation of Left Innominate Vein, Percutaneous Approach (ICD-10-PCS; principal; 2022-11-30 12:00)
DX: I87.1 Compression of vein (principal); N18.6 End stage renal disease; I12.0 Hypertensive chronic kidney disease with stage 5 chronic kidney disease or end stage renal disease; E11.22 Type 2 diabetes mellitus with diabetic chronic kidney disease; E11.42 Type 2 diabetes mellitus with diabetic polyneuropathy; D63.1 Anemia in chronic kidney disease; I25.10 Atherosclerotic heart disease of native coronary artery without angina pectoris; R59.0 Localized enlarged lymph nodes; N25.0 Renal osteodystrophy; E83.39 Other disorders of phosphorus metabolism; E87.6 Hypokalemia; E78.5 Hyperlipidemia, unspecified; Z87.891 Personal history of nicotine dependence; Z98.84 Bariatric surgery status; Z79.899 Other long term (current) drug therapy; Z99.2 Dependence on renal dialysis

== ENCOUNTER 2023-01-02 11:56 | Emergency (ER) | payer MEDICARE, OTHER ==
[~2023-01-02] VITALS: Ht 180.3 cm; Wt 100.7 kg
[~2023-01-02 11:56] MED LIST changes: +ATOR1TAB21 PO; +B-12100021 PO; +D 101000 PO; +TRAZ-257 PO
[2023-01-02 14:26] LABS: HEMATOCRIT 29.3 % (42.0-52.0); HEMOGLOBIN 9.3 g/dl (13.5-17.5); MEAN CORPUSCULAR HEMOGLOBIN 27.7 pg (27.0-33.0); MEAN CORPUSCULAR HGB CONC 31.7 g/dl (32.0-36.5); MEAN CORPUSCULAR VOLUME 87.2 fl (80.0-96.0); PLATELET COUNT, AUTOMATED 376 10^3/uL (150-450); RED BLOOD COUNT 3.36 10^6/uL (4.30-6.10)
[2023-01-02 14:56] LABS: CALCIUM LEVEL 6.2 MG/DL (8.5-10.1); CREATININE FOR GFR 14.83 MG/DL (0.70-1.30); GLOMERULAR FILTRATION RATE 3.7 (>56); POTASSIUM SERUM 3.1 MMOL/L (3.5-5.1)
[2023-01-02 16:44] LABS: MAGNESIUM LEVEL 1.6 MG/DL (1.8-2.4)
[2023-01-02 16:50] LABS: ERYTHROCYTE SEDIMENTATION RATE > 130 mm/hr (0-20)
[2023-01-02] MEDS ORDERED: MAGNESIUM OXIDE 400MG TAB (MAG-OX) PO ONE (19:15)
[2023-01-02] MEDS ORDERED: POTASSIUM CHLORIDE 10MEQ SR TABLET PO ONE ×2 (19:15)
[2023-01-02] MEDS ORDERED: PRED20TA PO (19:24)
[2023-01-02 19:38] VITALS: BP 138/78; TEMP 97.7; O2SAT 96
[2023-01-03 08:45] LABS: C REACTIVE PROTEIN QUANTITATIV 18.3 MG/DL (<1.0)
[2023-01-04 15:09] LABS: ANTI DOUBLE STRAND-DNA AB 1 IU/mL (0-9); ANTINUCLEAR ANTIBODIES DIRECT Positive (Negative); RNP ANTIBODIES 3.2 AI (0.0-0.9); SJOGREN'S ANTI SS-A <0.2 AI (0.0-0.9); SJOGREN'S ANTI SS-B <0.2 AI (0.0-0.9); SMITH ANTIBODIES <0.2 AI (0.0-0.9)
[2023-01-05 18:54] LABS: COMPLEMENT C3 116.6 MG/DL (90.0-170.0); COMPLEMENT C4 49.6 MG/DL (12-36); RHEUMATOID FACTOR QUANT 16.8 IU/ML (<14)
[2023-01-08 12:08] LABS: ANTI DS-DNA AB Negative (Negative)
== END 2023-01-02 19:41 | disposition home or self-care (01) ==
LOC: M ED 11:56
DX: M19.90 Unspecified osteoarthritis, unspecified site (principal); R70.0 Elevated erythrocyte sedimentation rate; R59.9 Enlarged lymph nodes, unspecified; E87.6 Hypokalemia; E83.42 Hypomagnesemia; N18.6 End stage renal disease; E11.9 Type 2 diabetes mellitus without complications; I73.9 Peripheral vascular disease, unspecified; Z99.2 Dependence on renal dialysis; Z79.899 Other long term (current) drug therapy

== ENCOUNTER 2023-03-13 15:46 | Emergency (ER) | payer MEDICARE, OTHER ==
[~2023-03-13] VITALS: Ht 180.3 cm; Wt 90.6 kg
[~2023-03-13 15:46] MED LIST changes: +PRED20TA PO
[2023-03-13] MEDS ORDERED: SODI325T9 PO (15:58)
[2023-03-13] MEDS ORDERED: ATOR40TA75 (15:58)
[2023-03-13] MEDS ORDERED: ELIQ2.5T (15:58)
[2023-03-13] MEDS ORDERED: POTA-298 (15:58)
[2023-03-13 18:10] VITALS: BP 135/94; TEMP 97.1; O2SAT 95
[2023-03-13 18:19] LABS: BASO # 0.1 10^3/uL (0.0-0.2); BASO % 0.7 % (0.0-1.0); EOS # 0.1 10^3/uL (0.0-0.5); EOS % 0.9 % (0.0-3.0); HEMATOCRIT 30.8 % (42.0-52.0); HEMOGLOBIN 9.2 g/dl (13.5-17.5); LYMPH # 1.3 10^3/uL (1.5-5.0); LYMPH % 8.6 % (24.0-44.0); MEAN CORPUSCULAR HEMOGLOBIN 27.5 pg (27.0-33.0); MEAN CORPUSCULAR HGB CONC 29.9 g/dl (32.0-36.5); MEAN CORPUSCULAR VOLUME 91.9 fl (80.0-96.0); MONO # 0.7 10^3/uL (0.0-0.8); MONO % 4.7 % (2.0-8.0); NEUTROPHILS # 12.3 10^3/uL (1.5-8.5); NEUTROPHILS % 82.2 % (36.0-66.0); PLATELET COUNT, AUTOMATED 502 10^3/uL (150-450); RED BLOOD COUNT 3.35 10^6/uL (4.30-6.10)
[2023-03-13 19:26] LABS: CALCIUM LEVEL 6.9 MG/DL (8.5-10.1); CREATININE FOR GFR 10.55 MG/DL (0.70-1.30); GLOMERULAR FILTRATION RATE 5.5 (>56); POTASSIUM SERUM 4.7 MMOL/L (3.5-5.1)
[2023-03-13] MEDS ORDERED: VALT500T PO (19:57)
[2023-03-13] MEDS ORDERED: CEPH500C PO (19:57)
[2023-03-13] MEDS ORDERED: CEPHALEXIN 500 MG CAP PO ONE ×2 (20:50)
[2023-03-13] MEDS ORDERED: valACYclovir HCL 500 MG TAB PO ONE (20:50)
[2023-03-19] MEDS ORDERED: ELIQ2.5T PO (19:36)
[2023-03-19] MEDS ORDERED: SODI650T PO (19:36)
[2023-03-19] MEDS ORDERED: POTA-151 PO (19:36)
[2023-03-19] MEDS ORDERED: PRED10TA2 PO (19:36)
[2023-03-19] MEDS ORDERED: ATOR40TA75 PO (19:36)
[2023-03-19] MEDS ORDERED: ROCA0.5C PO (19:36)
[2023-03-19] MEDS ORDERED: CEPH500C PO (21:17)
[2023-03-20] MEDS ORDERED: VALT500T PO (01:32)
== END 2023-03-13 21:09 | disposition home or self-care (01) ==
LOC: M ED 15:46
DX: A60.01 Herpesviral infection of penis (principal); L03.115 Cellulitis of right lower limb; L03.116 Cellulitis of left lower limb; N18.9 Chronic kidney disease, unspecified; Z99.2 Dependence on renal dialysis; Z79.01 Long term (current) use of anticoagulants; Z79.899 Other long term (current) drug therapy; M79.605 Pain in left leg; Z86.16 Personal history of COVID-19

== ENCOUNTER → 2023-05-02 | Outpatient (CLI) | payer MEDICARE, OTHER ==
[~2023-05-02] VITALS: Ht 180.3 cm; Wt 93.0 kg
[~2023-05-02] MED LIST changes: +ATOR40TA75; +CEPH500C PO; +ELIQ2.5T; +ELIQ2.5T PO; +FOSR500C2 PO; +GABA-1171 PO; +INDO-16 PO; +LIDO5OIN19 TOP; +LISI5TAB11 PO; +MORP15TA2 PO; +OXYC1TAB23 PO; +POTA-151 PO; +POTA-298; +PRED10TA2 PO; +PROC10TA5 PO; +RAME8TAB2 PO; +SENN-186 PO; +SODI325T9 PO; +SODI650T PO; +VALT500T PO
[2023-05-02 11:06] VITALS: BP 165/100; O2SAT 97
== END ==
LOC: M PAL 10:54
PROVIDERS: ATTEND Nurse Practitioner Adult Health
DX: N18.6 End stage renal disease (principal); E11.22 Type 2 diabetes mellitus with diabetic chronic kidney disease; I87.1 Compression of vein; E78.5 Hyperlipidemia, unspecified; D64.9 Anemia, unspecified; N48.89 Other specified disorders of penis; N25.0 Renal osteodystrophy; F41.8 Other specified anxiety disorders; R11.0 Nausea; R53.83 Other fatigue; R63.0 Anorexia; G89.29 Other chronic pain; Z51.5 Encounter for palliative care; Z99.2 Dependence on renal dialysis; Z79.899 Other long term (current) drug therapy; Z98.84 Bariatric surgery status; Z87.891 Personal history of nicotine dependence; Z79.891 Long term (current) use of opiate analgesic

== ENCOUNTER → 2023-05-16 | Outpatient (CLI) | payer MEDICARE, OTHER ==
[~2023-05-16] VITALS: Ht 180.3 cm; Wt 84.6 kg
[~2023-05-16] MED LIST changes: +HYDR-161 PO; -HYDR10TAB PO; +ONDA8TAB8 PO
[2023-05-16 09:05] VITALS: BP 132/85; O2SAT 100
== END ==
LOC: M PAL 08:43
PROVIDERS: ATTEND Nurse Practitioner Adult Health
DX: N18.6 End stage renal disease (principal); E11.22 Type 2 diabetes mellitus with diabetic chronic kidney disease; I87.1 Compression of vein; E83.59 Other disorders of calcium metabolism; N48.89 Other specified disorders of penis; R11.0 Nausea; R63.0 Anorexia; G89.29 Other chronic pain; Z51.5 Encounter for palliative care; Z79.01 Long term (current) use of anticoagulants; Z79.891 Long term (current) use of opiate analgesic; Z79.899 Other long term (current) drug therapy; Z87.891 Personal history of nicotine dependence; Z98.84 Bariatric surgery status; Z99.2 Dependence on renal dialysis

== ENCOUNTER → 2023-05-30 | Outpatient (CLI) | payer MEDICARE, OTHER ==
[~2023-05-30] VITALS: Ht 180.3 cm; Wt 84.4 kg
[~2023-05-30] MED LIST changes: +BACT400T PO; +NEUR600T PO; +PENT400T22; +SANT250O8
[2023-05-30 11:35] VITALS: BP 129/87; O2SAT 99
== END ==
LOC: M ONCM 10:33
PROVIDERS: ATTEND Nurse Practitioner Adult Health
DX: G89.29 Other chronic pain (principal); N18.6 End stage renal disease; E11.22 Type 2 diabetes mellitus with diabetic chronic kidney disease; I87.1 Compression of vein; E83.59 Other disorders of calcium metabolism; N48.89 Other specified disorders of penis; Z51.5 Encounter for palliative care; Z79.01 Long term (current) use of anticoagulants; Z79.891 Long term (current) use of opiate analgesic; Z79.899 Other long term (current) drug therapy; Z87.891 Personal history of nicotine dependence; Z98.84 Bariatric surgery status; Z99.2 Dependence on renal dialysis; R60.0 Localized edema

== ENCOUNTER → 2023-06-28 | Outpatient (REF) | payer MEDICARE, OTHER | LOC: M SMT 15:31 | PROVIDERS: ATTEND Urology | DX: N48.29 Other inflammatory disorders of penis (principal); Z79.899 Other long term (current) drug therapy ==

== ENCOUNTER 2023-07-01 08:33 | Day surgery (SDC) | payer MEDICARE, OTHER ==
[~2023-07-01] VITALS: Ht 180.3 cm; Wt 86.6 kg
[~2023-07-01 08:33] MED LIST changes: -BACT400T PO
[2023-07-01] MEDS ORDERED: LR 1,000 ML IV SCH ×2 (08:50→11:45)
[2023-07-01] MEDS ORDERED: fentaNYL 100 MCG/2 ML INJECTION As Ordered ONE (09:48)
[2023-07-01] MEDS ORDERED: ONDANSETRON 4MG 2ML VIAL As Ordered ONE (09:49)
[2023-07-01] MEDS ORDERED: LIDOCAINE 2% 100MG/5ML SDV (FOR ANES.) As Ordered ONE (09:49)
[2023-07-01] MEDS ORDERED: propofoL 200 MG/20 ML VIAL As Ordered ONE (09:49)
[2023-07-01] MEDS ORDERED: MIDAZOLAM INJ 2MG/2ML VIAL As Ordered ONE (09:49)
[2023-07-01] MEDS ORDERED: NS 500 ML IV SCH (10:05)
[2023-07-01] MEDS ORDERED: ROCURONIUM BROMIDE 50MG/5ML VIAL As Ordered ONE (10:12)
[2023-07-01] MEDS ORDERED: METOCLOPRAMIDE INJ 10MG/2ML VIAL As Ordered ONE (10:15)
[2023-07-01] MEDS ORDERED: ACETAMINOPHEN 1000MG 100ML IV BAG As Ordered ONE (10:16)
[2023-07-01] MEDS: ceFAZolin SOD 2 GM in IV 1 EA IV ONE (10:50)
[2023-07-01] MEDS ORDERED: VASOPRESSIN INJ 20UNITS/ML 1ML VIAL As Ordered ONE (10:57)
[2023-07-01] MEDS ORDERED: SUGAMMADEX SODIUM 500 MG/5 ML VIAL (BRIDION) As Ordered ONE (11:02)
[2023-07-01] MEDS ORDERED: PHENYLephrine 500MCG 5ML (100MCG/ML) SYRINGE As Ordered ONE (11:19)
[2023-07-01] MEDS: BACITRACIN OINTMENT 30GM TUBE As Ordered ONE (11:33)
[2023-07-01] MEDS: LIDOCAINE 1% SDV 30ML VIAL As Ordered ONE (11:37)
[2023-07-01] MEDS ORDERED: fentaNYL 100 MCG/2 ML INJECTION IV PRN (11:45)
[2023-07-01] MEDS ORDERED: diphenhydrAMINE 50MG/ML VIAL IV PRN (11:45)
[2023-07-01] MEDS ORDERED: ONDANSETRON 4MG 2ML VIAL IV PRN (11:45)
[2023-07-01] MEDS ORDERED: METOCLOPRAMIDE INJ 10MG/2ML VIAL IV PRN (11:45)
[2023-07-01] MEDS ORDERED: BACT400T PO (11:59)
[2023-07-01] MEDS: oxyCODONE 5MG TAB PO PRN (12:41)
[2023-07-01] MEDS: HYDROMORPHONE HCL 0.5 MG/ 0.5 ML SYRINGE IV PRN (12:48)
[2023-07-01 14:06] VITALS: BP 158/78; TEMP 97.7; O2SAT 98
== END 2023-07-01 14:23 | disposition home or self-care (01) ==
LOC: M SDC 08:33
PROVIDERS: ATTEND Urology
DX: N48.29 Other inflammatory disorders of penis (principal); B96.89 Other specified bacterial agents as the cause of diseases classified elsewhere; B95.2 Enterococcus as the cause of diseases classified elsewhere; E11.9 Type 2 diabetes mellitus without complications; Z87.891 Personal history of nicotine dependence; Z79.899 Other long term (current) drug therapy
CPT/HCPCS: 36415; 54120; 84132; 87075; 87076; 87088; 87186; 88305; J0131; J0665; J0690; J1100; J1170; J2250; J2371; J2405; J2598; J2765; J3010

== ENCOUNTER → 2023-08-07 | Outpatient (CLI) | payer MEDICARE, OTHER ==
[~2023-08-07] VITALS: Ht 180.3 cm; Wt 89.6 kg
[~2023-08-07] MED LIST changes: +BACT400T PO
[2023-08-07 08:59] VITALS: BP 152/86; O2SAT 100
== END ==
LOC: M PAL 08:40
PROVIDERS: ATTEND Nurse Practitioner Adult Health
DX: N18.6 End stage renal disease (principal); E11.22 Type 2 diabetes mellitus with diabetic chronic kidney disease; L74.52 Secondary focal hyperhidrosis; R22.33 Localized swelling, mass and lump, upper limb, bilateral; I87.1 Compression of vein; R11.2 Nausea with vomiting, unspecified; G89.29 Other chronic pain; Z51.5 Encounter for palliative care; Z79.891 Long term (current) use of opiate analgesic; Z79.899 Other long term (current) drug therapy; Z87.891 Personal history of nicotine dependence; Z98.84 Bariatric surgery status; Z99.2 Dependence on renal dialysis; Z90.79 Acquired absence of other genital organ(s); Z99.89 Dependence on other enabling machines and devices

== ENCOUNTER 2023-12-04 10:34 | Day surgery (SDC) | payer MEDICARE, MEDICAID ==
[~2023-12-04] VITALS: Ht 180.3 cm; Wt 83.6 kg
[~2023-12-04 10:34] MED LIST changes: +ONDA-284 PO; -ONDA8TAB8 PO
[2023-12-04] MEDS ORDERED: LR 1,000 ML IV SCH (11:05)
[2023-12-04] MEDS ORDERED: MIDAZOLAM INJ 2MG/2ML VIAL As Ordered ONE (11:17)
[2023-12-04] MEDS ORDERED: KETOROLAC 60MG 2ML VIAL As Ordered ONE (11:17)
[2023-12-04] MEDS ORDERED: ONDANSETRON 4MG 2ML VIAL As Ordered ONE (11:17)
[2023-12-04] MEDS ORDERED: fentaNYL 100 MCG/2 ML INJECTION As Ordered ONE (11:17)
[2023-12-04] MEDS ORDERED: LIDOCAINE 2% 100MG/5ML SDV (FOR ANES.) As Ordered ONE (11:17)
[2023-12-04] MEDS ORDERED: propofoL 200 MG/20 ML VIAL As Ordered ONE (11:17)
[2023-12-04] MEDS: ceFAZolin SOD 2 GM in IV 1 EA IV ONE (12:04)
[2023-12-04] MEDS: LIDOCAINE 1% SDV 30ML VIAL As Ordered ONE (12:05)
[2023-12-04] MEDS ORDERED: dexmedeTOMIDine (4MCG/ML)200MCG/50ML BTL (PRECEDEX) As Ordered ONE (12:09)
[2023-12-04] MEDS ORDERED: METOCLOPRAMIDE INJ 10MG/2ML VIAL As Ordered ONE (12:16)
[2023-12-04] MEDS ORDERED: ACETAMINOPHEN 1000MG 100ML IV BAG As Ordered ONE (12:21)
[2023-12-04 13:10] VITALS: BP 102/64; TEMP 97; O2SAT 97
[2023-12-10] MEDS ORDERED: OXYC-600 PO (09:03)
== END 2023-12-04 13:12 | disposition home or self-care (01) ==
LOC: M SDC 10:34
PROVIDERS: ATTEND Podiatrist Foot & Ankle Surgery
DX: L97.528 Non-pressure chronic ulcer of other part of left foot with other specified severity (principal); L02.612 Cutaneous abscess of left foot; E78.00 Pure hypercholesterolemia, unspecified; G62.9 Polyneuropathy, unspecified; Z87.891 Personal history of nicotine dependence; Z90.49 Acquired absence of other specified parts of digestive tract; Z98.84 Bariatric surgery status
CPT/HCPCS: 28820; 36415; 84132; 87070; 87075; 87076; 87077; 87186; 88305; J0131; J0665; J0690; J2250; J2405; J2765; J3010

== ENCOUNTER → 2023-12-10 | Outpatient (CLI) | payer MEDICARE, OTHER ==
[~2023-12-10] VITALS: Ht 180.3 cm; Wt 87.8 kg
[~2023-12-10] MED LIST changes: +GABA-1490 PO; -GABA600T4 PO; +OXYC-600 PO
[2023-12-10 09:00] VITALS: BP 134/81; O2SAT 99
== END ==
LOC: M PAL 08:45
PROVIDERS: ATTEND Nurse Practitioner Adult Health
DX: N18.6 End stage renal disease (principal); E11.22 Type 2 diabetes mellitus with diabetic chronic kidney disease; L74.52 Secondary focal hyperhidrosis; I87.1 Compression of vein; R11.2 Nausea with vomiting, unspecified; Z51.5 Encounter for palliative care; Z79.891 Long term (current) use of opiate analgesic; Z79.899 Other long term (current) drug therapy; Z87.891 Personal history of nicotine dependence; Z98.84 Bariatric surgery status; Z99.2 Dependence on renal dialysis; Z90.79 Acquired absence of other genital organ(s); Z99.89 Dependence on other enabling machines and devices; Z89.422 Acquired absence of other left toe(s)

== ENCOUNTER → 2024-01-22 | Outpatient (REF) | payer MEDICARE, OTHER ==
[~2024-01-22] MED LIST changes: +GABA-1172 PO; -GABA-282 PO
== END ==
LOC: M LAB REF 15:19
PROVIDERS: ATTEND Podiatrist Foot & Ankle Surgery
DX: L03.039 Cellulitis of unspecified toe (principal)

== ENCOUNTER 2024-02-12 11:05 | Day surgery (SDC) | payer MEDICARE, MEDICAID ==
[~2024-02-12] VITALS: Ht 180.3 cm; Wt 89.4 kg
[~2024-02-12 11:05] MED LIST changes: +SEVE800T3 PO
[2024-02-12] MEDS ORDERED: NS 1,000 ML IV SCH (11:25)
[2024-02-12] MEDS ORDERED: ONDANSETRON 4MG 2ML VIAL As Ordered ONE (11:28)
[2024-02-12] MEDS ORDERED: propofoL 200 MG/20 ML VIAL As Ordered ONE (11:28)
[2024-02-12] MEDS ORDERED: LIDOCAINE 2% 100MG/5ML SDV (FOR ANES.) As Ordered ONE (11:28)
[2024-02-12] MEDS: ceFAZolin SOD 2 GM in IV 1 EA IV ONE (12:25)
[2024-02-12] MEDS: LIDOCAINE 1% SDV 30ML VIAL As Ordered ONE (12:39)
[2024-02-12] MEDS ORDERED: ACETAMINOPHEN 1000MG 100ML IV BAG As Ordered ONE (12:40)
[2024-02-12] MEDS ORDERED: PHENYLephrine 500MCG 5ML (100MCG/ML) SYRINGE As Ordered ONE (12:44)
[2024-02-12] MEDS ORDERED: ePHEDrine SULFATE 25 MG/5 ML(5MG/ML) SYRINGE As Ordered ONE (12:56)
[2024-02-12 13:05] VITALS: TEMP 98.4
[2024-02-12 13:10] VITALS: BP 95/55; O2SAT 98
== END 2024-02-12 13:30 | disposition home or self-care (01) ==
LOC: M SDC 11:05
PROVIDERS: ATTEND Podiatrist Foot & Ankle Surgery
DX: M65.972 Unspecified synovitis and tenosynovitis, left ankle and foot (principal); M71.372 Other bursal cyst, left ankle and foot; Z79.899 Other long term (current) drug therapy; Z87.891 Personal history of nicotine dependence
CPT/HCPCS: 28288; 28820; 36415; 84132; 88305; 88311; J0131; J0665; J0690; J1100; J2371; J2405

== ENCOUNTER → 2024-05-11 | Outpatient (CLI) | payer MEDICARE, OTHER ==
[~2024-05-11] VITALS: Ht 180.3 cm; Wt 96.0 kg
[2024-05-11 15:42] VITALS: BP 139/80; O2SAT 99
== END ==
LOC: M PAL 15:05
PROVIDERS: ATTEND Family Medicine
DX: Z51.5 Encounter for palliative care (principal); N18.6 End stage renal disease; G89.29 Other chronic pain; Z99.2 Dependence on renal dialysis; Z90.79 Acquired absence of other genital organ(s)